=== PATIENT | male | born 1975 | race Caucasian/White ===

== ENCOUNTER 2024-09-18 13:09 | Emergency (ER) | payer OTHER, SELFPAY ==
[2024-09-18 13:25] VITALS: BP 95/69; PULSE 97; RESP 26; TEMP 36.3; O2SAT 97
--- NOTE | 2024-09-18 13:32 | XRR_ITS ---
PROCEDURE INFORMATION: Exam: XR Chest Exam date and time: 09/18/2024 2:01 PM Age: 49 years old Clinical indication: Shortness of breath TECHNIQUE: Imaging protocol: Radiologic exam of the chest. Views: 1 view. COMPARISON: No relevant prior studies available. FINDINGS: Lungs: Patchy alveolar airspace disease in the right and left lower lobes. Findings are suspicious for pneumonia. Calcified granuloma in the left mid lung. Pleural spaces: No pleural effusion. No pneumothorax. Heart/Mediastinum: Cardiac silhouette is markedly enlarged. Mediastinal contours are unremarkable. Calcified lymph nodes in the right hilum. Vasculature: Vascular calcifications in the aorta. Bones/joints: Unremarkable for age. XR/XR chest 1V portable [id number] IMPRESSION: 1. Patchy alveolar airspace disease in the right and left lower lobes. Findings are suspicious for pneumonia. Recommend followup chest imaging to insure resolution of these findings. 2. Incidental/nonacute findings are listed in the report.
[2024-09-18 14:18] LABS: Influenza A NEGATIVE (Negative); Influenza B NEGATIVE (Negative); Respiratory Syncytial Virus Ce NEGATIVE (Negative); SARS-CoV-2 PCR NEGATIVE (Negative)
[2024-09-18 15:02] LABS: Basophils # 0.1 10^3/uL (0.0-0.1); Basophils % 0.7 %; Eosinophils # 0.2 10^3/uL (0.0-0.8); Eosinophils % 2.4 %; Hematocrit 44.3 % (37-53); Lymphocytes # 2.7 10^3/uL (0.8-4.8); Lymphocytes % 27.8 %; Mean Corpuscular HGB Conc 32.7 g/dL (30-55); Mean Corpuscular Hemoglobin 29.5 pg (27-33); Mean Corpuscular Volume 90.2 fl (82-101); Mean Platelet Volume 10.5 fL (7.4-10.4); Monocytes # 0.9 10^3/uL (0.2-0.9); Monocytes % 8.9 %; Neutrophils # 5.74 10^3/uL (1.8-7.7); Neutrophils % 59.7 %; Nucleated Red Blood Cells % 0 %; Platelet Count 435 10^3/cmm (157-399); Red Blood Count 4.91 10^6/uL (3.85-5.65); Red Cell Distribution Width 13.4 % (12.1-15.1); White Blood Count 9.62 10^3/uL (3.29-11.43)
--- NOTE | 2024-09-18 15:09 | ECG_ITS ---
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1975 Requested By: Harley Felipe Order Number: [id number] Julian MD: PIPO CLARK Measurements Intervals [place] Rate: 99 P: 0 AL: 0 QRS: -64 QRSD: 106 T: 129 QT: 375 QTc: 483 Interpretive Statements SINUS ARRHYTHMIA RHYTHM PATTERN CONSISTENT WITH PULMONARY DISEASE INCOMPLETE RIGHT BUNDLE BRANCH BLOCK [90+ ms QRS DURATION, TERMINAL R IN V1/V2, 40+ ms S IN I/aVL/V4/V5/V6] LEFT ANTERIOR FASCICULAR BLOCK [QRS AXIS <= -45, QR IN I, RS IN II] MODERATE VOLTAGE CRITERIA FOR LVH, CONSIDER NORMAL VARIANT [MEETS CRITERIA IN ONE OF: R(aVL), S(V1), R(V5), R(V5/V6)+S(V1)] POSSIBLE SEPTAL MYOCARDIAL INFARCTION , PROBABLY OLD [30 ms Q WAVE IN V1/V2] No previous ECG available for comparison Electronically Signed On 09-20-2024 19:30:30 PARTS SALES MANAGER by PIPO CLARK [id number]
[2024-09-18 15:24] LABS: Alanine Aminotransferase 46 U/L (0-41); Albumin Level 3.6 g/dL (3.5-5.2); Alkaline Phosphatase 79 U/L (40-130); Anion Gap 21.1 (5-19); Aspartate Amino Transferase 38 U/L (0-40); Blood Urea Nitrogen 23 mg/dL (6-20); Calcium 9.3 mg/dL (8.5-10.5); Carbon Dioxide 20 mmol/L (22-29); Chloride 98 mmol/L (98-107); Globulin 3.4 g/dL (1.3-4.6); Glomerular Filtration Rate 53.6 mL/min (90-130); Glucose 139 mg/dL (65-115); Osmolality Calculated 286 mOsm/kg (285-295); Potassium 4.1 mmol/L (3.5-5.1); Sodium 135 mmol/L (136-145); Total Bilirubin 0.6 mg/dL (0.15-1.2)
--- NOTE | 2024-09-18 16:28 | ED_ITS ---
HPI - SOB/Dyspnea 2 General: Chief Complaint: Shortness of Breath/Dyspnea Stated Complaint: SOB Time Seen by Provider: 09/18/24 16:24 History of Present Illness: HPI Narrative: Patient presents to the ER with complaints of shortness of breath over the past 2 weeks. He says gotten really bad over the last 2 days. Patient denies any chest pain fever chills. Patient says he normally is not short of breath does not use oxygen does not have a history of COPD. Upon arrival to the ER patient was sleeping soundly lying flat on his back without oxygen and his O2 sat was 97% on room air Related Data Previous Rx's ?Medication ?Instructions ?Recorded albuterol sulfate 90 mcg/actuation 2 inh inhalation Q6 H PRN shortness 09/18/24 aerosol inhaler (Ventolin HFA) of breath or wheezing # 6.7 grams cefdinir 300 mg capsule 300 mg PO BID 10 days #20 ca ps 09/18/24 Allergies Allergy/AdvReac Type Severity Reaction Status Date / Time No Known Allergies Allergy Verified 09/18/24 13:28 Review of Systems 2 General: Reports: 10 or more systems reviewed and unremarkable except in HPI and below Physical Exam 2 Const: COMMON NORMALS: no acute distress, average body habitus, patient oriented x3, no limitations, healthy appearing, alert and well nourished HENMT: COMMON NORMALS: normocephalic, atraumatic, hearing grossly normal bilaterally, external ears normal, Normal external nose present, moist oral mucous membranes and oropharynx normal HEAD & SCALP: normocephalic and atraumatic NOSE: Normal external nose present EXTERNAL EAR: Yes external ears normal Neck/C-Spine: COMMON NORMALS: no JVD Chest: COMMONS NORMALS: normal inspection of the chest and normal palpation of entire chest wall Resp: COMMON NORMALS: normal respiratory effort, No retractions, No use of accessory muscles and clear to auscultation bilaterally AUSCULTATION: clear to auscultation bilaterally Cardio: COMMON NORMALS: no JVD, regular rate, regular rhythm, S1 normal heart sound present, S2 normal heart sound present, No gallops present (Cardio), No clicks present (Cardio), No murmurs present (Cardio) and No rub (Cardio) R ATE: regular rate RHYTHM: regular rhythm HEART SOUNDS: S1 normal heart sound present and S2 normal heart sound present GI: COMMON NORMALS: Normal to inspection, nondistended, normoactive bowel sounds present, Soft to palpation, non-tender, No hepatosplenomegaly present and no masses PALPATION: Yes Soft to palpation and Yes No hepatosplenomegaly present Neuro: COMMON NORMALS: patient oriented x3 SENSORIUM/ORIENTATION: Yes alert Course 2 Vital Signs: Vital signs: Vital Signs Temperature 97.4 F L 09/18/24 13:25 Pulse Rate 97 09/18/24 13:25 Respiratory Rate 26 H 09/18/24 13:25 Blood Pressure 95/69 09/18/24 13:25 Pulse Oximetry 97 09/18/24 13:25 Oxygen Delivery Me thod Room Air 09/18/24 13:25 MDM - SOB/Dyspnea Medical Decision Making Viral panel is negative, white count 9.6 hemoglobin 14.5 BUN/creatinine 23 and 1.4, chest x-ray showed patchy alveolar disease in the right and left lower lobes suspicious for pneumonia. Patient was given 1 DuoNeb treatment Omnicef 300 mg p.o. and will be DC'd home with albuterol inhaler and Omnicef prescriptions. Medical Records I reviewed the patient's medical records. Lab Data I reviewed the patient's lab results. 09/18/24 14:44 09/18/24 14:44 Labs/Radiology: Radiology Impressions Chest X-Ray 09/18/24 13:32 IMPRESSION: 1. Patchy alveolar airspace disease in the right and left lower lobes. Findings are suspicious for pneumonia. Recommend followup chest imaging to insure resolution of these findings. 2. Incidental/nonacute findings are listed in the report. Laboratory Results WBC 9.62 10^3/uL (3.29-11.43) 09/18/24 14:44 RBC 4.91 10^6/uL (3.85-5.65) 09/18/24 14:44 Hgb 14.50 g/dL (11.27-16.99) 09/18/24 14:44 Hct 44.3 % (37-53) 09/18/24 14:44 MCV 90.2 fl (82-101) 09/18/24 14:44 MCH 29.5 pg (27-33) 09/18/24 14:44 MCHC 32.7 g/dL (30-55) 09/18/24 14:44 RDW 13.4 % (12.1-15.1) 09/18/24 14:44 Plt Count 435 10^3/cmm (157-399) H 09/18/24 14:44 MPV 10.5 fL (7.4-10.4) H 09/18/24 14:44 Neut % (Auto) 59.7 % 09/18/24 14:44 Lymph % (Auto) 27.8 % 09/18/24 14:44 [place] % (Auto) 8.9 % 09/18/24 14:44 Eos % (Auto) 2.4 % 09/18/24 14:44 Baso % (Auto) 0.7 % 09/18/24 14:44 Neut # (Auto) 5.74 10^3/uL (1.8-7.7) 09/18/24 14:44 Lymph # (Auto) 2.7 10^3/uL (0.8-4.8) 09/18/24 14:44 [place] # (Auto) 0.9 10^3/uL (0.2-0.9) 09/18/24 14:44 Eos # (Auto) 0.2 10^3/uL (0.0-0.8) 09/18/24 14:44 Baso # (Auto) 0.1 10^3/uL (0.0-0.1) 09/18/24 14:44 Nucleated RBC % (auto) 0 % 09/18/24 14:44 Nucleated RBCs # 0.0 /100WBC 09/18/24 14:44 Sodium 135 mmol/L (136-145) L 09/18/24 14:44 Potassium 4.1 mmol/L (3.5-5.1) 09/18/24 14:44 Chloride 98 mmol/L (98-107) 09/18/24 14:44 Carbon Dioxide 20 mmol/L (22-29) L 09/18/24 14:44 Anion Gap 21.1 (5-19) H 09/18/24 14:44 BUN 23 mg/dL (6-20) H 09/18/24 14:44 Creatinine 1.4 mg/dL (0.7-1.2) H 09/18/24 14:44 GFR Calculation 53.6 mL/min (90-130) L 09/18/24 14:44 Glucose 139 mg/dL (65-115) H 09/18/24 14:44 Calculated Osmolality 286 mOsm/kg (285-295) 09/18/24 14:44 Calcium 9.3 mg/dL (8.5-10.5) 09/18/24 14:44 Total Bilirubin 0.6 mg/dL (0.15-1.2) 09/18/24 14:44 AST 38 U/L (0-40) 09/18/24 14:44 ALT 46 U/L (0-41) H 09/18/24 14:44 Alkaline Phosphatase 79 U/L (40-130) 09/18/24 14:44 Total Protein 7.0 g/dL (6.6-8.7) 09/18/24 14:44 Albumin 3.6 g/dL (3.5-5.2) 09/18/24 14:44 Globulin 3.4 g/dL (1.3-4.6) 09/18/24 14:44 Coronavirus (PCR) Negative (Negative) 09/18/24 13:32 Influenza A (PCR) Negative (Negative) 09/18/24 13:32 Influenza Type B (PCR) Negative (Negative) 09/18/24 13:32 RSV (PCR) Negative (Negative) 09/18/24 13:32 All radiology interpretation(s) finalized by discharge Discharge Plan Discharge Patient Disposition: Home Clinical Impression: Community acquired pneumonia Qualifiers: Laterality: unspecified laterality Qualified Code(s): J18.9 - Pneumonia, unspecified organism Condition: Stable Prescriptions: New albuterol sulfate [Ventolin HFA] 90 mcg/actuation HFA aerosol inhaler 2 inh inhalation Q6H PRN (Reason: shortness of breath or wheezing) Qty: 6.7 0RF cefdinir 300 mg capsule 300 mg PO BID 10 Days Qty: 20 0RF Discharge Orders: Discharge ED (Routine); Ordered 09/18/24 Ordered By: Harley Felipe Patient Instructions: Pneumonia (ED) Activity Restrictions/Additional Instructions: Your evaluation ER shows you have pneumonia. You have been prescribed an antibiotic and an inhaler. These have been sent to your pharmacy. Please pick them up and take them as directed. Please follow-up with your family practitioner within next 7 days for further evaluation and treatment. Print Language: Romansh Coding Level of Care Code ED Automobile Accessories Salesperson for Rony Maldonado
[2024-09-18 16:30] VITALS: BP 115/72; PULSE 87; O2SAT 97
[2024-09-18 16:34] VITALS: PULSE 87; RESP 18; O2SAT 94
[2024-09-18] MEDS: cefdinir 300 MG CAPSULE PO (16:36)
[2024-09-18] MEDS: ipratropium-albuterol 3 mL Neb INHALATION (16:38)
[2024-09-18 16:39] VITALS: PULSE 89
[2024-09-18 17:14] VITALS: BP 123/72; PULSE 82; O2SAT 93
== END 2024-09-18 17:15 | disposition home or self-care (01) ==
PROVIDERS: Emergency Provider Emergency Medicine
DX: J18.9 Pneumonia, unspecified organism (principal); Z11.52 Encounter for screening for COVID-19
CPT/HCPCS: 36415; 71045; 80053; 85025; 87637; 93005; 94640; 99285

== ENCOUNTER 2024-09-22 05:35 | Emergency (ER) | payer OTHER, SELFPAY ==
[2024-09-22] VITALS (7 sets, daily range): BP systolic 135–153; BP diastolic 80–116; PULSE 91–102; RESP 16–29; TEMP 36.7; O2SAT 90–98; BMI 32.5
--- NOTE | 2024-09-22 06:00 | XRR_ITS ---
PROCEDURE INFORMATION: Exam: XR Chest Exam date and time: 09/22/2024 6:01 AM Age: 49 years old Clinical indication: Cough and shortness of breath; C/O cough with SOB. TECHNIQUE: Imaging protocol: Radiologic exam of the chest. Views: 1 view. COMPARISON: CR XR chest 1V portable [id number] 09/18/2024 2:01 PM FINDINGS: Lungs: Interval increase in patchy opacities of the right lower, middle and inferior upper lobe. Dense retrocardiac opacity. Pleural spaces: Unremarkable. No pleural effusion. No pneumothorax. Heart/Mediastinum: Cardiomegaly. Calcified hilar lymph nodes. Vasculature: Tortuous calcified aorta. Bones/joints: Degenerative change of the spine and shoulders. XR/XR chest 1V portable [id number] IMPRESSION: Interval increase in opacities of the right lung field and similar retrocardiac opacity suggestive of multifocal pneumonia.
--- NOTE | 2024-09-22 06:17 | ECG_ITS ---
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 Measurements Intervals [place] Rate: 90 P: 55 [place]: 192 QRS: -53 QRSD: 112 T: 125 QT: 389 QTc: 477 Interpretive Statements SINUS RHYTHM.LEFT ATRIAL ENLARGEMENT [-0.15mV P-WAVE IN V1/V2] INCOMPLETE RIGHT BUNDLE BRANCH BLOCK [90+ ms QRS DURATION, TERMINAL R IN V1/V2, 40+ ms S IN I/aVL/V4/V5/V6] LEFT ANTERIOR FASCICULAR BLOCK [QRS AXIS <= -45, QR IN I, RS IN II] POSSIBLE LEFT VENTRICULAR HYPERTROPHY [VOLTAGE CRITERIA PLUS LAE OR QRS WIDENING] POSSIBLE SEPTAL MYOCARDIAL INFARCTION , OF INDETERMINATE AGE [30 ms Q WAVE IN V1/V2]. MODERATE T-WAVE ABNORMALITY, CONSIDER LATERAL ISCHEMIA [-0.1+ mV T-WAVE IN I/aVL/V5/V6]. Compared to ECG 09/18/2024 13:32:59 Atrial abnormality now present.T-wave abnormality now present.Possible ischemia now present.Sinus arrhythmia no longer present.Myocardial infarct finding still present Electronically Signed On 09-22-2024 11:24:35 ARCHITECT NAVAL by Naomy Elizalde M.D. [email or web address] [id number]
--- NOTE | 2024-09-22 06:29 | W.ED.SOB ---
HPI - SOB/Dyspnea General: Chief Complaint: Shortness of Breath/Dyspnea Stated Complaint: SOB\Water filling lungs Time Seen by Provider: 09/22/24 05:59 History of Present Illness: HPI Narrative: 49-year-old male presents to the emergency room complaining of what he describes as fluid in his lungs difficulty breathing. Patient with 3 to 4 days ago and started on cefdinir as well as albuterol. At that time chest x-ray done in the emergency room here showed what looks like a right lower lobe pneumonia. He states he has gotten worse since then. He has a nonproductive cough he has a mask and appears to be like a industrial dust mask with a oxygen to projecting from the bottom he states he gets oxygen and he feels better when he uses oxygen reports he has been getting at 2 L/min. Tried him on room air he maintained his sats at around 95%. No history of chronic respiratory disease PE or coronary artery disease. He does have a prescription for verapamil at at bedtime that he takes for hypertension. [facility] No history of arrhythmia or coronary artery disease. Patient has stopped taking the antibiotics he was prescribed previously. He denies any chest pain at this time. Associated symptoms: Reports chest congestion; Deny abdominal pain, chest pain or fever(s) Related Data Home Medications ?Medication ?Instructions ?Recorded ?Confirmed verapamil 240 mg tablet,extended 240 mg PO BEDTIME 09/18/24 09/22/24 release Previous Rx's ?Medication ?Instructions ?Recorded albuterol sulfate 90 mcg/actuation 2 inh inhalation Q6H PRN shortness 09/18/24 aerosol inhaler (Ventolin HFA) of breath or wheezing #6.7 grams cefdinir 300 mg capsule 300 mg PO BID 10 days #20 caps 09/18/24 azithromycin 250 mg tablet See Rx Instructions PO .COMPLEX #6 09/22/24 (Zithromax Z-Julien) tabs furosemide 20 mg tablet (Lasix) 20 mg PO DAILY #7 tabs 09/22/24 Allergies Allergy/AdvReac Type Severity Reaction Status Date / Time No Known Allergies Allergy Verified 09/22/24 05:44 Review of Systems Const: Denies: fever(s) or chills Card: Reports: dyspnea on exertion; Denies: chest pain Resp: Reports: dyspnea and chest congestion GI: Denies: abdominal pain : Denies: dysuria, urinary frequency or urinary urgency Musc: Denies: neck pain or back pain Skin/Breast: Denies: rash PFSH ED PFSH: Medical History HTN (hypertension) Cluster headache Social History (Updated 09/22/24 @ 10:54 by Frandy Armstrong MD) Smoking and tobacco/nicotine status: current every day tobacco/nicotine user e-cigarettes Alcohol intake: never Substance/Drug Use: current Substance/Drug use frequency: Special occassions/opportunity only Physical Exam Const: GENERAL APPEARANCE: cooperative ORIENTATION/CONSCIOUSNESS: Yes awake, Yes oriented to person, Yes oriented to place and Yes oriented to time HENMT: COMMON NORMALS: normocephalic, atraumatic and hearing grossly normal bilaterally HEAD & SCALP: normocephalic and atraumatic Resp: COMMON NORMALS: normal respiratory effort, No retractions and No use of accessory muscles AUSCULTATION: crackles Laterality: right Cardio: COMMON NORMALS: regular rate, regular rhythm and No murmurs present (Cardio) RATE: regular rate RHYTHM: regular rhythm GI: COMMON NORMALS: Soft to palpation and No hepatosplenomegaly present AUSCULTATION: Yes normoactive bowel sounds PALPATION: Yes Soft to palpation, No Tenderness to palpation present (GI), No Guarding due to palpation present (GI) and Yes No hepatosplenomegaly present Extremity: COMMON NORMALS: normal to inspection, capillary refill normal, no clubbing, cyanosis or edema, no calf tenderness and no pedal edema Neuro: SENSORIUM/ORIENTATION: Yes oriented to person, Yes oriented to place and Yes oriented to time Skin: COMMON NORMALS: no rashes or lesions noted GENERAL SKIN EXAM: no rashes or lesions noted Course Vital Signs: Vital signs: Vital Signs Temperature 98.0 F 09/22/24 05:41 Pulse Rate 102 H 09/22/24 10:00 Respiratory Rate 29 H 09/22/24 06:18 Blood Pressure 153/116 09/22/24 10:00 Pulse Oximetry 90 09/22/24 10:00 Oxygen Delivery Me thod Room Air 09/22/24 10:00 Oxygen Flow Rate 2 09/22/24 07:49 MDM - SOB/Dyspnea Medical Decision Making Previous ER visit reviewed. Patient had apparent pneumonia on chest x-ray. It is more prominent today. He has nonspecific EKG changes mostly look old nothing that shows acute ST elevation he is not having any chest pain at this time did not have any chest pain earlier at his previous visit. Patient has acute congestive heart failure CT did not show PE his troponin is elevated at baseline shows a positive delta he also has elevated BNP and findings suggestive of imaging of congestive heart failure his white count and procalcitonin are normal flu and COVID and RSV are negative. Advised patient for admission he refuses. He has not been taking the cefdinir. Patient ultimately left AMA. Dr. Li ski Dr. Carbajal myself as well as nursing staff all encouraged him to stay impressed upon him the seriousness of these findings and the potential for worsening including the potential for sudden cardiac . He states he will go home and get his cell phone and may return. We offered several other alternatives so that he would not have to leave he still decided to leave. Will call in [employer] form also advised him he has a 1.37 cm left lower lobe pulmonary nodule on his CT that should be followed up within the next 6 months. Finally also have him take Lasix 20 mg daily for 7 days Patient had already left charge nurse contacted the patient to advise him of our recommendations if he does not return preferably he should return and be admitted Medical Records I reviewed the patient's medical records. Lab Data I reviewed the patient's lab results. 09/22/24 06:45 09/22/24 06:45 Labs/Radiology: Radiology Impressions Chest X-Ray 09/22/24 06:00 IMPRESSION: Interval increase in opacities of the right lung field and similar retrocardiac opacity suggestive of multifocal pneumonia. Chest CTA 09/22/24 08:14 IMPRESSION: 1. No acute PE. 2. Posterior bilateral pleural effusions most marked on the RIGHT. Diffuse interstitial and airspace infiltrates noted bilaterally. This could represent pneumonia or pulmonary edema secondary to congestive heart failure. 3. Cardiomegaly. 4. 1.37 cm indeterminate soft tissue nodule in the LEFT lower lobe. 6-month follow-up contrast CT scan of the chest recommended for surveillance. Laboratory Results WBC 11.41 10^3/uL (3.29-11.43) 09/22/24 06:45 RBC 4.50 10^6/uL (3.85-5.65) 09/22/24 06:45 Hgb 13.60 g/dL (11.27-16.99) 09/22/24 06:45 Hct 40.7 % (37-53) 09/22/24 06:45 MCV 90.4 fl (82-101) 09/22/24 06:45 MCH 30.2 pg (27-33) 09/22/24 06:45 MCHC 33.4 g/dL (30-55) 09/22/24 06:45 RDW 13.4 % (12.1-15.1) 09/22/24 06:45 Plt Count 357 10^3/cmm (157-399) 09/22/24 06:45 MPV 10.1 fL (7.4-10.4) 09/22/24 06:45 Neut % (Auto) 72.6 % 09/22/24 06:45 Lymph % (Auto) 17.7 % 09/22/24 06:45 [place] % (Auto) 7.6 % 09/22/24 06:45 Eos % (Auto) 1.3 % 09/22/24 06:45 Baso % (Auto) 0.5 % 09/22/24 06:45 Neut # (Auto) 8.28 10^3/uL (1.8-7.7) H 09/22/24 06:45 Lymph # (Auto) 2.0 10^3/uL (0.8-4.8) 09/22/24 06:45 [place] # (Auto) 0.9 10^3/uL (0.2-0.9) 09/22/24 06:45 Eos # (Auto) 0.2 10^3/uL (0.0-0.8) 09/22/24 06:45 Baso # (Auto) 0.1 10^3/uL (0.0-0.1) 09/22/24 06:45 Nucleated RBC % (auto) 0 % 09/22/24 06:45 Nucleated RBCs # 0.0 /100WBC 09/22/24 06:45 D-Dimer 2.18 ug/mLFEU (0-0.59) H 09/22/24 06:45 Sodium 136 mmol/L (136-145) 09/22/24 06:45 Potassium 4.7 mmol/L (3.5-5.1) 09/22/24 06:45 Chloride 99 mmol/L (98-107) 09/22/24 06:45 Carbon Dioxide 23 mmol/L (22-29) 09/22/24 06:45 Anion Gap 18.7 (5-19) 09/22/24 06:45 BUN 18 mg/dL (6-20) 09/22/24 06:45 Creatinine 1.3 mg/dL (0.7-1.2) H 09/22/24 06:45 GFR Calculation 58.4 mL/min (90-130) L 09/22/24 06:45 Glucose 141 mg/dL (65-115) H 09/22/24 06:45 Calculated Osmolality 286 mOsm/kg (285-295) 09/22/24 06:45 Calcium 9.1 mg/dL (8.5-10.5) 09/22/24 06:45 Total Bilirubin 0.9 mg/dL (0.15-1.2) 09/22/24 06:45 AST 34 U/L (0-40) 09/22/24 06:45 ALT 43 U/L (0-41) H 09/22/24 06:45 Alkaline Phosphatase 79 U/L (40-130) 09/22/24 06:45 Troponin T Baseline 183 ng/L (0-15) H* 09/22/24 06:45 Troponin T 120 Minute 201.5 ng/L (0-15) H 09/22/24 09:12 Delta Troponin T 18.5 ABS# (0-10) H* 09/22/24 09:12 C-Reactive Protein 4.5 mg/L (0.0-4.9) 09/22/24 06:45 NT-Pro-B Natriuret Pep 2827 pg/mL (0-125) H 09/22/24 06:45 Total Protein 6.5 g/dL (6.6-8.7) L 09/22/24 06:45 Albumin 3.6 g/dL (3.5-5.2) 09/22/24 06:45 Globulin 2.9 g/dL (1.3-4.6) 09/22/24 06:45 Procalcitonin 0.09 ng/mL (0-0.5) 09/22/24 06:45 Coronavirus (PCR) Negative (Negative) 09/22/24 06:35 Influenza A (PCR) Negative (Negative) 09/22/24 06:35 Influenza Type B (PCR) Negative (Negative) 09/22/24 06:35 RSV (PCR) Negative (Negative) 09/22/24 06:35 All radiology interpretation(s) finalized by discharge Discharge Plan Discharge Patient Disposition: Left Against Medical Advice Clinical Impression: Non-ST elevation MD (NSTEMI), HTN (hypertension), CHF (congestive heart failure), Pulmonary nodule 1 cm or greater in diameter Condition: Stable Prescriptions: New furosemide [Lasix] 20 mg tablet 20 mg PO DAILY Qty: 7 0RF azithromycin [Zithromax Z-Julien] 250 mg tablet See Rx Instructions .ROUTE .COMPLEX Qty: 6 0RF Rx Instructions: For 250 mg dose pack: take 500 mg today (day 1), then 250 mg for 4 days (days 2-5) No Action albuterol sulfate [Ventolin HFA] 90 mcg/actuation HFA aerosol inhaler 2 inh inhalation Q6H PRN (Reason: shortness of breath or wheezing) Qty: 6.7 0RF cefdinir 300 mg capsule 300 mg PO BID 10 Days Qty: 20 0RF verapamil 240 mg Tablet Extended Release 240 mg PO BEDTIME Print Language: Romanian Coding Level of Care Code ED Assistant Account Manager for Rony Maldonado
--- NOTE | 2024-09-22 06:52 | ECG_ITS ---
[employer] Test Date: 2024-09-22 Pat Name: Andry Del Cid Department: Room: Gender: Male Virtualization Architect: : 1975 Requested By: Sravan Franco Order Number: [id number] Julian MD: Naomy Elizalde M.D. Measurements Intervals [place] Rate: 91 P: -31 NM: 321 QRS: -55 QRSD: 114 T: 132 QT: 384 QTc: 474 Interpretive Statements ELECTRONIC ATRIAL PACEMAKER INCOMPLETE RIGHT BUNDLE BRANCH BLOCK [90+ ms QRS DURATION, TERMINAL R IN V1/V2, 40+ ms S IN I/aVL/V4/V5/V6] LEFT ANTERIOR FASCICULAR BLOCK [QRS AXIS <= -45, QR IN I, RS IN II] LEFT VENTRICULAR HYPERTROPHY AND ST-T CHANGE [VOLTAGE CRITERIA PLUS ST/T ABNORMALITY] Compared to ECG 09/18/2024 13:32:59 ST (T wave) deviation now present Sinus arrhythmia no longer present Myocardial infarct finding no longer present Electronically Signed On 09-22-2024 11:25:08 CHANNELING MACHINE OPERATOR by Naomy Elizalde M.D. [id number] [id number]
[2024-09-22 07:04] LABS: Basophils # 0.1 10^3/uL (0.0-0.1); Basophils % 0.5 %; Eosinophils # 0.2 10^3/uL (0.0-0.8); Eosinophils % 1.3 %; Hematocrit 40.7 % (37-53); Lymphocytes % 17.7 %; Mean Corpuscular HGB Conc 33.4 g/dL (30-55); Mean Corpuscular Hemoglobin 30.2 pg (27-33); Mean Corpuscular Volume 90.4 fl (82-101); Mean Platelet Volume 10.1 fL (7.4-10.4); Monocytes # 0.9 10^3/uL (0.2-0.9); Monocytes % 7.6 %; Neutrophils # 8.28 10^3/uL (1.8-7.7); Neutrophils % 72.6 %; Nucleated Red Blood Cells % 0 %; Platelet Count 357 10^3/cmm (157-399); Red Cell Distribution Width 13.4 % (12.1-15.1); White Blood Count 11.41 10^3/uL (3.29-11.43)
[2024-09-22 07:17] LABS: Influenza A NEGATIVE (Negative); Influenza B NEGATIVE (Negative); Respiratory Syncytial Virus Ce NEGATIVE (Negative); SARS-CoV-2 PCR NEGATIVE (Negative)
[2024-09-22 07:24] LABS: Troponin(5th) Baseline 183 ng/L (0-15)
[2024-09-22 07:28] LABS: NT Pro B Type Natriuretic Pept 2827 pg/mL (0-125); Procalcitonin 0.09 ng/mL (0-0.5)
[2024-09-22 07:39] LABS: Alanine Aminotransferase 43 U/L (0-41); Albumin Level 3.6 g/dL (3.5-5.2); Alkaline Phosphatase 79 U/L (40-130); Blood Urea Nitrogen 18 mg/dL (6-20); Calcium 9.1 mg/dL (8.5-10.5); Carbon Dioxide 23 mmol/L (22-29); Chloride 99 mmol/L (98-107); Creatinine Clr Calc Pharmacy 79.1692; Globulin 2.9 g/dL (1.3-4.6); Glomerular Filtration Rate 58.4 mL/min (90-130); Glucose 141 mg/dL (65-115); Osmolality Calculated 286 mOsm/kg (285-295); Sodium 136 mmol/L (136-145); Total Bilirubin 0.9 mg/dL (0.15-1.2); Total Protein 6.5 g/dL (6.6-8.7)
[2024-09-22 07:44] LABS: Anion Gap 18.7 (5-19); Aspartate Amino Transferase 34 U/L (0-40); Potassium 4.7 mmol/L (3.5-5.1)
--- NOTE | 2024-09-22 07:50 | PC.NURSE ---
Pt oxygen saturation 95% on room air. This nurse went in to room to round, pt requested this nurse to turn oxygen up. This nurse educated pt on his oxygen saturations being within normal limits. Pt still requested to have oxygen on and stated I've got a bottle in the truck. This nurse placed pt on 2L of oxygen via nasal cannula.
[2024-09-22 07:52] LABS: D Dimer 2.18 ug/mLFEU (0-0.59)
--- NOTE | 2024-09-22 08:14 | CT_ITS ---
WS: [id number] Exam: CT angio chest PE protcl [id number] Date/Time of Exam: 09/22/2024 8:21 AM Reason For Exam: Shortness of breath, elevated D-dimer DLP: 512.[address] scans at [facility] use at least one of these dose optimization techniques: automated exposure control; mA and/or kV adjustment per patient size (includes targeted exams where dose is matched to clinical indication); or iterative reconstruction. No sign of acute PE. Bibasal pleural effusions are noted most marked on the RIGHT. There are patchy interstitial and airspace infiltrates in the RIGHT lung as well as the LEFT lower lung zone. There is a 13.7 cm soft tissue indeterminate nodule in the LEFT lower lobe. The heart is enlarged. The thoracic aorta is normal in caliber. The central pulmonary arteries are clear. The trachea and major bronchi are clear. No mass or adenopathy in the visualized neck. No destructive bone lesions are seen. CT/CT angio chest PE protcl [id number] IMPRESSION: 1. No acute PE. 2. Posterior bilateral pleural effusions most marked on the RIGHT. Diffuse inte rstitial and airspace infiltrates noted bilaterally. This could represent pneum onia or pulmonary edema secondary to congestive heart failure. 3. Cardiomegaly. 4. 1.37 cm indeterminate soft tissue nodule in the LEFT lower lobe. 6-month fol low-up contrast CT scan of the chest recommended for surveillance.
[2024-09-22] MEDS: iohexol 350 mg/mL 500 mL Btl (per mL) IV (08:38)
--- NOTE | 2024-09-22 08:55 | ECG_ITS ---
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 Measurements Intervals Hunt Rate: 96 P: 60 OR: 203 QRS: -57 QRSD: 102 T: 91 QT: 372 QTc: 471 Interpretive Statements SINUS RHYTHM LEFT ATRIAL ENLARGEMENT [-0.15mV P-WAVE IN V1/V2] INCOMPLETE RIGHT BUNDLE BRANCH BLOCK [90+ ms QRS DURATION, TERMINAL R IN V1/V2, 40+ ms S IN I/aVL/V4/V5/V6] LEFT ANTERIOR FASCICULAR BLOCK [QRS AXIS <= -45, QR IN I, RS IN II] SEPTAL MYOCARDIAL INFARCTION , OF INDETERMINATE AGE [40+ ms Q WAVE IN V1/V2] Compared to ECG 09/22/2024 06:46:23 T-wave abnormality no longer present Possible ischemia no longer present Myocardial infarct finding still present Electronically Signed On 09-22-2024 11:26:57 [employer] by Naomy Elizalde M.D. [email or web address]
[2024-09-22 09:45] LABS: Troponin 5 2HR 201.5 ng/L (0-15); Troponin 5 2HR Delta 18.5 ABS# (0-10)
--- NOTE | 2024-09-22 10:01 | PC.NURSE ---
THIS NURSE AND DR. NELSON WENT TO SPEAK WITH PT ABOUT POSSIBLE ADMISSION. PT STATES I NEED TO GO HOME AND GET MY PHONE. THERE ARE PEOPLE I NEED TO NOTIFY. DR. NELSON EDUCATED PT ON THE NEED TO STAY AND TO BE TREATED. PT CONTINUED TO WANT TO LEAVE AND STATED NOBODY KNOWS I AM HERE. I NEED TO GO HOME AND GET MY PHONE. I'LL BE BACK IN 45 MINUTES. PT WAS EDUCATED BY THIS NURSE THAT IF HE LEFT, HE WOULD HAVE TO SIGN OUT AMA AND THEN WHEN HE CAME BACK IT WOULD BE A COMPLETELY DIFFERENT ER VISIT. PT UPSET AND STATES WHY IS THAT? I NEED TO GO AND GET MY PHONE. THIS NURSE ASKED PT IF THERE WERE ANY NAMES OF PEOPLE THAT COULD BE CALLED TO GET HIS PHONE TO HIM. PT STATED I DON'T HAVE ANY NUMBERS. THEY ARE ALL IN MY PHONE. THIS NURSE ASKED ABOUT ANY NAMES. PT STATED I DON'T KNOW ANY LAST NAMES. I JUST KNOW FIRST NAMES. DR. NELSON EDUCATED PT AGAIN ON THE NEED TO STAY AND BE TREATED. PT STILL CONTINUED TO WANT TO LEAVE. THIS NURSE ASKED PT IF HE WOULD LET THIS NURSE LOOK IN PT CHART TO SEE IF THERE ARE ANY NUMBERS IN THE CHART THAT COULD BE CALLED. PT VERBALIZED THAT THIS NURSE COULD CHECK. THIS NURSE CHECKED PT CHART. NO VALID NUMBERS LISTED IN THE CHART. NEW ORDERS FROM DR. NELSON FOR A URINE DRUG SCREEN. THIS NURSE ASKED PT IF HE COULD URINATE FOR A SAMPLE. PT VERBALIZED HE WOULD TRY. THIS NURSE UNHOOKED PT TO GET UP TO USE THE RESTROOM. PT DID NOT ATTEMPT TO GET UP. THIS NURSE ASKED PT IF HE WAS READY TO TRY TO GIVE A SAMPLE. PT BECAME AGITATED AND UPSET AND STATED I TOLD YOU I JUST WENT. YOU ARE GOING TO HAVE TO WAIT. THIS NURSE VERBALLY DEESCALATED PT. PT WAS HOOKED BACK UP TO VITAL SIGN MONITOR AND WAS GIVEN CALL LIGHT TO NOTIFY THIS NURSE WHEN HE WAS ABLE TO URINATE FOR SAMPLE. DR NELSON NOTIFIED AND VERBAL ORDERS TO NOT AGITATE PT BY ASKING FOR SAMPLE.
[2024-09-22 10:25] LABS: C Reactive Protein 4.5 mg/L (0.0-4.9)
--- NOTE | 2024-09-22 10:51 | P.CONIM_ITS ---
Providers/Reason For Consult 2 Consulting Physician/Specialty*: Hospitalist Reason for Consult*: Came to see patient for admission, although he is considering that he may not stay and might discharge from ER before returning. He is going to let the ER providers know his final decision. History of Present Illness History of Present Illness 49-year-old gentleman with history of hypertension, reports blood pressure has always been high , previously on metoprolol did not tolerate medication well, has been switched over to verapamil. With history of smoking, but had quit and then started vaping but states recently has not been able to vape either. Has been getting progressively more dyspneic, dyspnea comes and goes, exertion seems to make it worse. About a month ago was able to walk further distance although would get intermittently exerted, currently will get quite dyspneic walking from the parking lot. States was having some panting after getting into the ER waiting room. Some dry cough. Denies chest pain or pressure. Denies any aspiration with food or drink. No vomiting recently, no diarrhea, some constipation. Denies recreational substance use beyond occasional marijuana. Denies alcohol consumption. In the ER with finding of some intermittent tachypnea, ranging 16-29, troponin with abnormality at baseline 183, at 2 hours 201. NT proBNP with abnormality of 2827. Mild-moderate creatinine 1.3. D- dimer with abnormal reading of 2.18. He denies any lower extremity edema. CRP not elevated. Procalcitonin not elevated. Mild tachycardia 90s-low 100 when he was getting upset in the ER, feels he has not improved since last visit to ER. Chest x-ray obtained during this assessment with interval increase in opacities in right lung field similar retrocardiac opacity suggestive of multifocal pneumonia. CT angiogram of the chest was obtained which showed no acute PE, posterior bilateral pleural effusions most marked on the right, diffuse interstitial airspace infiltrates noted bilaterally, could represent pneumonia or pulmonary edema secondary to congestive heart failure. Cardiomegaly. 1.37 cm indeterminate soft tissue nodule in the left lower lobe. 6-month follow-up contrast CT scan of the chest recommended for surveillance. Review of Systems 2 Const: Reports: fatigue; Denies: fever(s), chills, body aches or malaise ENMT: Denies: throat pain Card: Reports: dyspnea on exertion; Denies: chest pain or swelling of feet/ankles Resp: Reports: dyspnea; Denies: productive cough, change in phlegm color or hemoptysis GI: Reports: constipation; Denies: abdominal pain, nausea, vomiting, diarrhea, hematochezia or melena : Denies: flank pain, difficulty urinating, urinary frequency or hematuria Musc: Denies: back pain, joint swelling or joint redness Skin/Breast: Denies: rash or new lesions Neuro: Denies: headache(s) or confusion Medications/Allergies Home Medications ?Medication ?Instructions ?Recorded ?Confirmed ?Last Taken ?Type albuterol sulfate 90 mcg/actuation 2 inh inhalation Q6 H PRN shortness 09/18/24 09/22/24 Unknown Rx aerosol inhaler (Ventolin HFA) of breath or wheezing # 6.7 grams cefdinir 300 mg capsule 300 mg PO BID 10 days #20 ca ps 09/18/24 09/22/24 Unknown Rx verapamil 240 mg tablet,extended 240 mg PO BEDTIME 09/22/24 Unknown History release Allergies Allergy/AdvReac Type Severity Reaction Status Date / Time No Known Allergies Allergy Verified 09/22/24 05:44 PFSH Acute 2 PFSH: Medical History HTN (hypertension) Cluster headache Social History (Updated 09/22/24 @ 10:54 by Frandy Armstrong MD) Smoking and tobacco/nicotine status: current every day tobacco/nicotine user e- cigarettes Alcohol intake: never Substance/Drug Use: current Substance/Drug use frequency: Special occassions/opportunity only Vitals/I&O/Wt Last Vital Signs Temp 98.0 F 09/22/24 05:41 Pulse 96 09/22/24 08:43 Resp 29 H 09/22/24 06:18 BP 135/93 09/22/24 08:43 Pulse Ox 93 09/22/24 09:13 O2 Del Method Room Air 09/22/24 09:13 O2 Flow Rate 2 09/22/24 07:49 09/21/24 09/22/24 09/22/24 22:59 06:59 14:59 Intake Total 0 / 0 Balance 0 / 0 Weight last 48 hrs Weight 99.79 kg Physical Exam 2 Narrative: Sitting up. Const: COMMON NORMALS: patient oriented x3 and alert GENERAL APPEARANCE: c ooperative ORIENTATION/CONSCIOUSNESS: Yes awake HENMT: COMMON NORMALS: oropharynx normal Neck/C-Spine: COMMON NORMALS: no JVD Resp: COMMON NORMALS: normal respiratory effort and clear to auscultation bilaterally AUSCULTATION: clear to auscultation bilaterally Cardio: COMMON NORMALS: no JVD, regular rhythm, S1 normal heart sound present, S2 normal heart sound present and No murmurs present (Cardio) RHYTHM: regular rhythm HEART SOUNDS: S1 normal heart sound present and S2 normal heart sound present GI: COMMON NORMALS: Normal to inspection, nondistended, normoactive bowel sounds present, Soft to palpation and non-tender PALPATION: Yes Soft to palpation Extremity: COMMON NORMALS: no joint enlargement and no pedal edema Neuro: COMMON NORMALS: patient oriented x3 and moves all extremities S ENSORIUM/ORIENTATION: Yes alert Psych: MOOD & AFFECT: Yes irritable Skin: COMMON NORMALS: no rashes or lesions noted GENERAL SKIN EXAM: no rashes or lesions noted Data 09/22/24 06:45 09/22/24 06:45 A&P Assessment and plan (1) Dyspnea: Progressive dyspnea on exertion, worsening over the last month, recently getting significantly dyspneic walking to the parking lot, he had quit smoking, but states recently has not been able to vape either due to the shortness of breath. Reviewed vitals, CBC, D-dimer, CMP, COVID, influenza, RSV PCR, chest x-ray, CTA chest, EKG, ER provider note. He is very unhappy that his condition was not treated well enough from prior visit and has not resolved. I have discussed with him our findings and hospitalization for further assessment and management including cardiac and pulmonary that may require further follow up for additional assessment and pulmonary assessment after discharge as well. Had been recently assessed on 07/18 for possible pneumonia, at that time received a prescription for cefdinir. He denies any vomiting, any evidence of aspiration, any cough with food or drink. In ER he is afebrile, without leukocytosis, but with mild tachycardia. Oxygen saturation mid to low 90s on room air. His symptoms have not improved. Progressed infiltrate on CXR. Elevated troponin and NT proBNP. As per discussion with him he was noted to have reported patchy infiltrates on CTA, no PE, process so far not identified, possible congestive heart failure with noted also troponin elevation at least moderate level, possible concomitant AK. Discussed also possible lung damage from vaping, advised against vaping. Discussed possible unresolving or atypical pneumonia. As per discussion with him we would recommend for him to be hospitalized for additional assessment and management given possible AK, possible decompensated congestive heart failure, possible nonresolving or atypical pneumonia, and would benefit from further assessment subsequently with pulmonary function testing, possibly follow-up with pulmonology in case of a more chronic progressive lung disease. Understanding this, he states that he is needing to leave the ER and then come back to take care of something important. Discussed with him that he is not here involuntarily, however, discussed concern that he may be having a heart attack and discussed needs additional workup as well as attention from cardiology team who are seeing him as well. Additionally starting treatment for possible nonresolving or atypical pneumonia inpatient to see how he responds to treatment and exclude presence of other progressive condition to make sure he is not having rapid significant deterioration that may endanger his health. He still states he needs to go and care of something important to do with his phone, discussed this also with the ER provider who states they have additionally offered if case management or other ancillary service can assist him with his need to avoid him having to leave the hospital, but it appears that he declined. He is deciding on whether to continue his hospitalization now as recommended or return after taking care of his important task. Discussed with ER provider and cardiology team who are also aware and have spoken with him as well. (2) Lung infiltrate: May benefit from addition of azithromycin with possible atypical pneumonia. Otherwise would benefit from further workup, sputum culture to help guide acute treatment, and subsequently at some point pulmonary function test and possibly follow-up with pulmonary in case of lack of improvement for further assessment of possible progressive chronic disease. As discussed with him should avoid vaping. As I do not have access to discharge instructions or prescriptions in ER, discussed with ER provider in case he decides not to stay but to discharge from ER, and discussed with ER provider as well addition of atypical coverage. (3) Troponin level elevated: Has been assessed by cardiology as well, as discussed with him possible heart attack, discussed additional assessment and management including telemetry monitoring, echocardiogram, additional treatment, has been seen by cardiology who are also putting in their recommendations. He is currently deciding whether he may stay and pursue additional assessment and treatment as discussed or leave AGAINST MEDICAL ADVICE and return to ER shortly after. (4) D-dimer, elevated: CTA reviewed, no PE. May be related to the pulmonary condition either nonresolving pneumonia versus possibly more progressive lung disease. Would benefit from echocardiogram as discussed with him and consider venous duplex. (5) Lung nodule: Looks like on CTA he is also incidentally found to have 1.37 cm indeterminate soft tissue nodule in the LEFT lower lobe. 6-month follow-up contrast CT scan of the chest recommended for surveillance. Discussed with ER provider to also have instructions for him in case he decides not to stay. (6) Pleural effusion: Possible related to decompensated new/acute congestive heart failure with cardiomegaly troponin elevation, pulmonary changes, possible congestive changes, versus possible pneumonia/typical pneumonia. He is afebrile, without leukocytosis, without chest pain, pleuritic discomfort, no signs of empyema at current time. (7) Renal dysfunction: Longstanding hypertension, mild renal dysfunction is noted, creatinine up to 1.3, blood pressure assessment 1.4, possible HTN related CKD. Would benefit from follow-up with primary provider. Plan Vaping: Discussed with him to stop and avoid vaping with risk of possible lung injury, with risk of possible lung injury. PDMP PDMP Reviewed: Not Reviewed Consult Attestations 2 Medical Necessity Statement: Patient is currently deciding whether he may stay and continue assessment and treatment of the health concerns or go and take care of an important matter and then return to the ER. and High MDM includes amount and/or complexity of data reviewed/ordered [ previous or external records, resulted lab(s)/test(s), ordered lab(s)/test(s) and other healthcare professional discussion] as documented Diagnoses Dyspnea R06.00 Lung infiltrate R91.8 Troponin level elevated R79.89 D-dimer, elevated R79.89 Lung nodule R91.1 Pleural effusion J90 Renal dysfunction N28.9
[2024-09-22] MEDS: FUROsemide 10 mg/mL SDV 4mL 40 MG IVP (10:52)
--- NOTE | 2024-09-22 11:13 | PC.NURSE ---
PT STILL REQUESTED TO LEAVE AMA. PT REFUSED VITAL SIGNS PRIOR TO LEAVING. THIS NURSE, DR. NELSON, DR. ROME, DR. CLARK, AND [facility], SAMANTHA CAMPUZANO, EDUCATED PT MULTIPLE TIMES ON THE NEED TO STAY AND BE TREATED. PT STILL REQUESTING TO LEAVE. AMA FORM OBTAINED. THIS NURSE EDUCATED ONE MORE TIME ON THE NEED FOR PT TO STAY AND BE TREATED. PT STATES I STILL WANT TO LEAVE. THIS NURSE ASKED PT TO RAISE HIS SHIRT SLEEVE TO TAKE OUT HIS IV. PT STATED I WAS JUST GOING TO LEAVE IT IN FOR WHEN I CAME BACK. THIS NURSE EDUCATED PT THAT THE IV HAD TO BE REMOVED PRIOR TO LEAVING. PT COOPERATED AND ALLOWED THIS NURSE TO REMOVE IV. IV REMOVED, CATHETER INTACT. PRESSURE DRESSING APPLIED TO IV SITE. PT EDUCATED ON AMA FORM AND ASKED IF PT HAD ANY QUESTIONS. PT REQUESTED HIS MEDICAL RECORDS FROM TODAYS VISIT AND HIS VISIT ON 09/17. THIS NURSE EDUCATED PT THAT ALL RECORD RELEASES HAD TO GO THROUGH MEDICAL RECORDS. PT STATED I AM NOT SIGNING THIS PAPER UNTIL YOU GET MY RECORDS FOR ME. THIS NURSE EDUCATED PT AGAIN HOW TO OBTAIN HIS RECORDS AND THAT HE IS NOT ABLE TO OBTAIN THEM FROM THE ER. PT STATED WELL, I AM NOT SIGNING THAT UNTIL YOU FIND ME SOMEONE TO GET ME MY RECORDS. [facility], SAMANTHA CAMPUZANO, WAS BROUGHT TO PT ROOM TO EDUCATE PT AGAIN ON THE RISK OF LEAVING AMA AND THE PROCESS OF OBTAINING MEDICAL RECORDS. PT VERBALIZED UNDERSTANDING BUT STILL REFUSED TO SIGN THE PAPER. THIS NURSE AND SAMANTHA CAMPUZANO, TWO NURSE SIGNED AMA FORM. PT WAS ESCORTED OUT OF FACILITY BY SAMANTHA CAMPUZANO.
--- NOTE | 2024-09-22 11:36 | P.CONIM_ITS ---
<Statement entered by Alvarez Rivas MD - 09/22/24 18:29> Patient was evaluated and cared for in conjunction with an advanced practice practitioner. I personally examined the patient and reviewed the chart and all pertinent data including imaging, telemetry, and laboratory results. I discussed the patient in detail with the advanced practice practitioner. Please see their note for complete H&P testing result and agreed upon plan of care for the patient. 49-year-old male past medical history significant for smokeless tobacco abuse, hypertension who presented worsening of shortness of breath noted to have infiltrates in the right lung with differential of pneumonia heart failure pneumonitis vaping injury, he was also noted to have elevated cardiac markers in the form of troponin. He denies categorically chest pain PND orthopnea. GENERAL: Patient is alert, awake and oriented x3. HEART: Regular S1 and S2. No murmur, rub or gallop. LUNGS: Decreased bilaterally. CENTRAL NERVOUS SYSTEM: Grossly nonfocal. EXTREMITIES: Lower extremities with out edema bilaterally. Assessment and plan Shortness of breath Elevated cardiac markers Continuous smokeless tobacco abuse Lung infiltrate Advise echocardiogram IV Lasix 40 mg twice daily Trending up cardiac markers if increase start heparin Patient may need ischemic workup depending upon echocardiogram wall motion or elevation of cardiac markers left heart cath versus stress test Treatment of pneumonia and pneumonitis as per medicine Patient would like to leave AMA. He has been explained all risk-benefit and alternatives. He understand risk for sudden cardiac myocardial infarction arrhythmia worsening of heart failure. He still would like to leave. Advise in case of worsening of symptom he should call 911 and come back to the ER. Providers/Reason For Consult 2 Consulting Physician/Specialty*: Alvarez Rivas MD Reason for Consult*: Elevated troponin, possible CHF exacerbation Requesting Physician: Dr. Blount Attending Physician: Dr. Armstrong History of Present Illness History of Present Illness Andry Del Cid is a 49 year old male who presented to the emergency room with difficulty breathing. He denies any orthopnea. He reports shortness of breath on exertion. Denies any chest pain. Denies any significant cardiac history. A few days ago he was started on cefdinir as well as albuterol for pneumonia. He had a right lower lobe pneumonia. He does have a history of vaping. He takes verapamil for hypertension. Per patient no history of arrhythmia or CAD. X-ray showed interval increase in opacities in the right lung field suggestive of possible multifocal pneumonia. CTA of the chest showed bilateral pleural effusions worse in the right. This could represent worsening pneumonia or pulmonary edema secondary to CHF. He did have cardiomegaly present. Incidentally found was a 1.37 cm nodule in the left lower lobe. Baseline troponin was 183?201.5, awaiting 6-hour reading. His proBNP was elevated at 2827. EKG showed no acute ST elevation or T wave abnormalities. Viral panel was negative. We were consulted for possible NSTEMI and new onset CHF. Review of Systems 2 Narrative: Consitutional: denies fever, chills, body aches, or changes in appetite, denies abnormal weight loss Eyes: Denies changes in vision Card: Denies chest pain, palpitations, irregular heart rhythm, edema, syncope, shortness of breath, orthopnea, leg pain with exertion Resp: Reports shortness of breath on exertion relieved with rest, denies hemoptysis, denies cough GI: denies abdominal pain, denies nausea or voimting, denies blood in stool : denies blood in urine, denies dysuria Musc: Denies extremity pain, denies limited range of motion or recent injury Skin: Denies rash, lesions, or wounds, denies changes to skin color Neuro: Denies nubmness in extremities, h/a, s/s of stroke Lauri: Denies easy bruiding/bleeding Medications/Allergies Home Medications ?Medication ?Instructions ?Recorded ?Confirmed ?Last Taken ?Type albuterol sulfate 90 mcg/actuation 2 inh inhalation Q6 H PRN shortness 09/18/24 09/22/24 Unknown Rx aerosol inhaler (Ventolin HFA) of breath or wheezing # 6.7 grams cefdinir 300 mg capsule 300 mg PO BID 10 days #20 ca ps 09/18/24 09/22/24 Unknown Rx verapamil 240 mg tablet,extended 240 mg PO BEDTIME 09/22/24 Unknown History release Allergies Allergy/AdvReac Type Severity Reaction Status Date / Time No Known Allergies Allergy Verified 09/22/24 05:44 PFSH Acute 2 PFSH: Medical History HTN (hypertension) Cluster headache Social History (Updated 09/22/24 @ 10:54 by Frandy Armstrong MD) Smoking and tobacco/nicotine status: current every day tobacco/nicotine user e- cigarettes Alcohol intake: never Substance/Drug Use: current Substance/Drug use frequency: Special occassions/opportunity only Vitals/I&O/Wt Last Vital Signs Temp 98.0 F 09/22/24 05:41 Pulse 102 H 09/22/24 10:00 Resp 29 H 09/22/24 06:18 BP 153/116 09/22/24 10:00 Pulse Ox 90 09/22/24 10:00 O2 Del Method Room Air 09/22/24 10:00 O2 Flow Rate 2 09/22/24 07:49 09/21/24 09/22/24 09/22/24 22:59 06:59 14:59 Intake Total 0 / 0 Balance 0 / 0 Weight last 48 hrs Weight 220 lb Physical Exam 2 Narrative: General: No apparent distress, healthy appearing, well nourished Muskuloskeletal: Full ROM Respiratory: Normal respiratory effort, bilateral lower lobes diminished, no use of accessory muscles Cardio: No JVD, regular rate, regular rhythm, S1 S2 normal, no murmurs GI: Normal to inspection, nondistended Extremities: Full ROM, normal, normal capillary refill, no cyanosis or edema Neuro: Alert and oriented x4, no focal motor deficits Psych: Affect normal, denies suicidal ideation, mental status grossly normal Skin: No rashes or lesions noted, no wounds Data 09/22/24 06:45 09/22/24 06:45 A&P Assessment and plan (1) Non-ST elevation OK (NSTEMI): (2) HTN (hypertension): Qualifiers: Hypertension type: primary hypertension Qualified Code(s): I10 - Essential (primary) hypertension (3) CHF (congestive heart failure): Qualifiers: Heart failure type: other Qualified Code(s): I50.9 - Heart failure, unspecified (4) Troponin level elevated: Plan Patient has abnormal x-ray with shortness of breath on exertion. Possible differentials include but are not limited to pneumonitis, worsening pneumonia, NSTEMI, heart attack, or type II OK from possible heart failure. At this time patient states he is going to leave AGAINST MEDICAL ADVICE. We have recommended against this. He does understand that he could have a heart attack, have deadly arrhythmias, or deteriorate respiratory garcia leading to . He accepts these risks. Our recommendation would be he stay for further workup for possible NSTEMI and CHF with echo and give IV diuresis, but at this time he states he is leaving. Thank you, Dr. Blount, for allowing us to care for this patient. PDMP PDMP Reviewed: Not Reviewed Consult Attestations 2 Medical Necessity Statement: Patient is stating he is leaving AMA. Coding Level of Care Code Acute Code for [facility] Fwd Diagnoses Non-ST elevation OK (NSTEMI) I21.4 Primary hypertension I10 Hypertension type: primary hypertension Other congestive heart failure I50.9 Heart failure type: other Troponin level elevated R79.89
== END 2024-09-22 11:10 | disposition left against medical advice (07) ==
PROVIDERS: Emergency Medicine; Emergency Provider Family Medicine
DX: I21.4 Non-ST elevation (NSTEMI) myocardial infarction (principal); I11.0 Hypertensive heart disease with heart failure; I50.9 Heart failure, unspecified; R91.1 Solitary pulmonary nodule; Z11.52 Encounter for screening for COVID-19; F17.290 Nicotine dependence, other tobacco product, uncomplicated
CPT/HCPCS: 71045; 71275; 80053; 83880; 84145; 84484; 85025; 85378; 86140; 87637; 93005; 96374; 99285; J1940

== ENCOUNTER 2024-09-22 16:11 | Inpatient (IN) | payer OTHER, SELFPAY ==
[2024-09-22 16:25] VITALS: BP 161/119; PULSE 99; TEMP 36.7; O2SAT 95; BMI 32.5
--- NOTE | 2024-09-22 16:29 | ECG_ITS ---
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 Measurements Intervals [place] Rate: 95 P: 44 MA: 188 QRS: -49 QRSD: 113 T: 131 QT: 377 QTc: 476 Interpretive Statements SINUS RHYTHM LEFT ATRIAL ENLARGEMENT [-0.15mV P-WAVE IN V1/V2] INCOMPLETE RIGHT BUNDLE BRANCH BLOCK [90+ ms QRS DURATION, TERMINAL R IN V1/V2, 40+ ms S IN I/aVL/V4/V5/V6] LEFT ANTERIOR FASCICULAR BLOCK [QRS AXIS <= -45, QR IN I, RS IN II] POSSIBLE LEFT VENTRICULAR HYPERTROPHY [VOLTAGE CRITERIA PLUS LAE OR QRS WIDENING] MODERATE T-WAVE ABNORMALITY, CONSIDER LATERAL ISCHEMIA [-0.1+ mV T-WAVE IN I/aVL/V5/V6] INTERPRETATION BASED ON A DEFAULT AGE OF 40 YEARS Compared to ECG 09/22/2024 08:55:09.T-wave abnormality now present Possible ischemia now present.Myocardial infarct finding no longer present Electronically Signed On 09-22-2024 20:27:05 NEWS ANCHOR by Naomy Elizalde M.D. [id number]
--- NOTE | 2024-09-22 16:54 | ED_ITS ---
HPI - Recheck/Abnormal Lab/Rx General: Chief Complaint: Recheck/Abnormal Lab/Rx Stated Complaint: heart issues/supposed to be admitted? Time Seen by Provider: 09/22/24 16:36 History of Present Illness: Patient seen earlier today we have advised admission he left AMA returns for admission. He wanted to go home and do some things and get his phone. He is not having any further chest pain no further symptoms. He had a positive delta Trope there is also concerning worsening pneumonia on his chest x-ray and CT there is no PE noted on the CTA. Reviewed previous note. Related Data Home Medications ?Medication ?Instructions ?Recorded ?Confirmed verapamil 240 mg tablet,extended 240 mg PO BEDTIME 09/22/24 release Previous Rx's ?Medication ?Instructions ?Recorded albuterol sulfate 90 mcg/actuation 2 inh inhalation Q6 H PRN shortness 09/18/24 aerosol inhaler (Ventolin HFA) of breath or wheezing # 6.7 grams cefdinir 300 mg capsule 300 mg PO BID 10 days #20 ca ps 09/18/24 azithromycin 250 mg tablet See Rx Instructions PO .COM PLEX #6 09/22/24 (Zithromax Z-Julien) tabs furosemide 20 mg tablet (Lasix) 20 mg PO DAILY #7 tabs 09/22/24 Allergies Allergy/AdvReac Type Severity Reaction Status Date / Time No Known Allergies Allergy Verified 09/22/24 16:34 Review of Systems Const: Denies: fever(s) or chills Card: Denies: chest pain Resp: Reports: dyspnea GI: Denies: abdominal pain : Denies: dysuria, urinary frequency or urinary urgency Musc: Denies: neck pain or back pain Skin/Breast: Denies: rash PFSH ED PFSH: Medical History HTN (hypertension) Cluster headache Social History Smoking and tobacco/nicotine status: current every day tobacco/nicotine user e- cigarettes Alcohol intake: never Substance/Drug Use: current Substance/Drug use frequency: Special occassions/opportunity only Physical Exam Const: GENERAL APPEARANCE: cooperative ORIENTATION/CONSCIOUSNESS: Yes awake, Yes oriented to person, Yes oriented to place and Yes oriented to time HENMT: COMMON NORMALS: normocephalic, atraumatic and hearing grossly normal bilaterally HEAD & SCALP: normocephalic and atraumatic Resp: COMMON NORMALS: normal respiratory effort, No retractions, No use of accessory muscles and clear to auscultation bilaterally AUSCULTATION: clear to auscultation bilaterally Cardio: COMMON NORMALS: regular rate, regular rhythm and No murmurs present (Cardio) RATE: regular rate RHYTHM: regular rhythm GI: COMMON NORMALS: Soft to palpation and No hepatosplenomegaly present AUSCULTATION: Yes normoactive bowel sounds PALPATION: Yes Soft to palpation, No Tenderness to palpation present (GI), No Guarding due to palpation present (GI) and Yes No hepatosplenomegaly present Extremity: COMMON NORMALS: normal to inspection, capillary refill normal, no clubbing, cyanosis or edema, no calf tenderness and no pedal edema Neuro: SENSORIUM/ORIENTATION: Yes oriented to person, Yes oriented to place and Yes oriented to time Skin: COMMON NORMALS: no rashes or lesions noted GENERAL SKIN EXAM: no rashes or lesions noted Course Vital Signs: Vital signs: Vital Signs Temperature 98.1 F 09/22/24 16:25 Pulse Rate 99 09/22/24 16:25 Blood Pressure 161/119 09/22/24 16:25 Pulse Oximetry 95 09/22/24 16:25 Oxygen Delivery Me thod Room Air 09/22/24 16:25 MDM - Recheck/Abnormal Lab/Rx Medical Decision Making Will readmit. Patient orders rewritten repeat troponin series and EKG alerted Carl Lopez that the patient had returned Dr. Raza as he is no longer available patient will be admitted to Dr. Mazariegos is a hospitalist Medical Records I reviewed the patient's medical records. Lab Data I reviewed the patient's lab results. All radiology interpretation(s) finalized by discharge Discharge Plan Discharge Patient Disposition: Admitted As Inpatient Admit Provider: Bianca Washington Clinical Impression: Non-ST elevation HI (NSTEMI), Pulmonary nodule 1 cm or greater in diameter, Community acquired pneumonia, HTN (hypertension), CHF (congestive heart failure) Condition: Stable Coding Level of Care Code ED High School Director for Rony Maldonado
[2024-09-22 17:28] VITALS: BP 161/119; PULSE 102; O2SAT 93
--- NOTE | 2024-09-22 17:28 | PM.HP ---
Providers/Chief Complaint Admitting Physician: Bianca Washington Chief Complaint: heart issues/supposed to be admitted? History of Present Illness 49-year-old male with a past medical history significant for hypertension, tobacco and vaping use who presented to the hospital with shortness of breath for the past few months, progressively getting worse. The shortness of breath increases when laying down sleeping. He denies chest discomfort, fever, chills, nausea, vomiting, and is not coughing up anything for the most part. He has smoked since he was younger and started vaping daily up until one week ago. The patient was seen in the ER on 09/18/2024 during which time he had been complaining of 2 weeks of shortness of breath. Workup in the ER on 09/18/2024 included a chest x-ray which showed patchy alveolar airspace disease in both lower lobes suspicious for pneumonia. He was discharged on cefdinir 300 mg twice daily and Ventolin inhaler. He returned earlier today to the ER with similar complaints. Chest x-ray was repeated earlier today which showed interval increase in patchy opacities in the right lower, middle and inferior lower lobes. Dense retrocardiac opacity was seen. Additionally, he was noted to have cardiomegaly and a tortuous calcified aorta. CTA of chest showed a posterior bilateral pleural effusion, most marked on the right, and diffuse interstitial infiltrates bilaterally suggestive of infection versus edema. Incidentally, a 1.37 cm indeterminate soft tissue nodule was noted in the left lower lobe, for which a 6 month follow-up CT scan was recommended. The patient denies abdominal pain or diarrhea. He notes constipation, which he attributes to sitting on the toilet for two hours waiting. He denies swelling in his legs, lightheadedness, dizziness, or falling anywhere. 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 He can not recall all interventions however stated he had two stents were placed in his carotid artery. This occurred after he passed out and in his driveway in [place]. He was treated at [facility]. He is not clear if they were carotid stents or vertebral. After the procedure, he was placed on baby aspirin but has not followed up since. He denies any other hospitalizations. Initial evaluation in the ER revealed: - Laboratory Findings: WBC 11, hemoglobin 13, hematocrit 40, platelets 357, D-dimer 2.18, sodium 136, potassium 4.7, chloride 99, bicarb 23, BUN 18, creatinine 1.3 (prior 1.4 on 09/18/2024), glucose 141, proBNP 2827, troponin T baseline 183 with repeat of 201 in 120 minutes (delta 18.5), CRP 4.5. - Imaging Studies: Chest x-ray with interval increase in patchy opacities in right lower, middle and inferior lower lobes, dense retrocardiac opacity, cardiomegaly and tortuous calcified aorta. CTA chest with posterior bilateral pleural effusions, most marked on the right, diffuse interstitial infiltrates bilaterally suggestive of infection versus edema, and incidental 1.37 cm indeterminate soft tissue nodule in the left lower lobe. He remains hemodynamically stable. Review of Systems General: Reports: 10 or more systems reviewed and unremarkable except in HPI and below Medications/Allergies Home Medications ?Medication ?Instructions ?Recorded ?Confirmed ?Last Taken ?Type albuterol sulfate 90 mcg/actuation 2 inh inhalation Q6H PRN shortness 09/18/24 09/22/24 Unknown Rx aerosol inhaler (Ventolin HFA) of breath or wheezing #6.7 grams cefdinir 300 mg capsule 300 mg PO BID 10 days #20 caps 09/18/24 09/22/24 Unknown Rx verapamil 240 mg tablet,extended 240 mg PO BEDTIME 09/18/24 09/22/24 Unknown History release azithromycin 250 mg tablet See Rx Instructions PO .COMPLEX #6 09/22/24 Unknown Rx (Zithromax Z-Julien) tabs furosemide 20 mg tablet (Lasix) 20 mg PO DAILY #7 tabs 09/22/24 Unknown Rx Allergies Allergy/AdvReac Type Severity Reaction Status Date / Time No Known Allergies Allergy Verified 09/22/24 16:34 PFSH Acute PFSH: Medical History HTN (hypertension) Cluster headache Social History Smoking and tobacco/nicotine status: current every day tobacco/nicotine user e-cigarettes Alcohol intake: never Substance/Drug Use: current Substance/Drug use frequency: Special occassions/opportunity only Vitals/I&O/Wt Last Vital Signs Temp 98.1 F 09/22/24 16:25 Pulse 99 09/22/24 16:25 BP 161/119 02/17/25 16:25 Pulse Ox 95 09/22/24 16:25 O2 Del Method Room Air 09/22/24 16:25 Weight last 48 hrs Weight 99.79 kg Physical Exam Narrative: - General: No acute distress - Cardiovascular: Regular rate and rhythm, no murmurs, rubs or gallops - Respiratory: Lungs clear to auscultation bilaterally, no wheezes, rales or rhonchi - Abdomen: Soft, nontender, nondistended, no hepatosplenomegaly - Extremities: No edema, cyanosis or clubbing - Neurological: Alert and oriented x3, no focal deficits A&P Assessment and plan (1) Troponin level elevated: (2) Elevated brain natriuretic peptide (BNP) level: (3) Dyspnea: Plan Elevated Troponin - Likely multifactorial etiology, including possible new-onset heart failure (elevated proBNP) and chronic vaping-induced lung injury with possible superimposed bacterial pneumonia. Differential Diagnosis: 1. Acute coronary syndrome 2. Myocarditis Plan: 1. Echocardiogram 2. Repeat troponin to evaluate for upward trend. 3. Cardiology consultation noted 4. Heparin drip per protocol started 5. Aspirin started 6. Lipid Panel in am Shortness of Breath - Multifactorial etiology likely contributing to the patient's progressive shortness of breath over the past few months, worse when laying down. Potential causes include heart failure, pneumonia, and pulmonary edema. Possible post viral cardiomyopathy - Elevated BNP - Imaging noted above. - No PE. Plan: 1. Echocardiogram 2. Trend troponins and monitor for any chest pain or EKG changes. 3. Daily weight, Strict I&O 4. Less likely infectious, CRP -negative, check Pro-calcitonin ( Monitor off antibiotics for now) Tobacco and Vaping Use Disorder - Long-standing history of tobacco smoking since youth, transitioned to vaping when it became available. Ceased vaping a few weeks ago. Plan: 1. If needed smoking/vaping cessation resources and support Constipation - Chronic constipation, likely multifactorial with contribution from verapamil use. Plan: 1. Bowel regimen History of Carotid Pseudoaneurysms Status Post Stenting (2012) - Two pseudoaneurysms treated with stent placement. Unclear location however thinks these might have been in the carotids at [facility] after the patient suffered a syncopal episode. Placed on baby aspirin after procedure but lost to follow-up. Plan: 1. Obtain outside records from [facility] for details of procedure and post-operative recommendations. Incidental Pulmonary Nodule - 1.37 cm indeterminate soft tissue nodule noted in the left lower lobe on CTA chest. Plan: 1. Recommend 6-month follow-up CT scan for stability assessment. PDMP PDMP Reviewed: Not Reviewed Attestations Medical Necessity Statement*: Anticiapte over 2 midnight stay in hospital for work up of elevated troponin, possible new onset HF needing med optimization, cardiology consult and Echo Coding Level of Care Code Acute Code for Chg Fwd Diagnoses Troponin level elevated R79.89 Elevated brain natriuretic peptide (BNP) level R79.89 Dyspnea R06.00
[2024-09-22] MEDS: pantoprazole 40 mg SDV IVP (18:13)
[2024-09-22] MEDS: heparin 5,000 unit/mL INJ 1 mL IVP (18:13)
[2024-09-22 18:20] LABS: Platelet Count 368 10^3/cmm (157-399)
[2024-09-22] MEDS: heparin drip 25,000 UNIT/500 ML PREMIX 28 UNIT IV (18:21)
[2024-09-22 18:42] LABS: Troponin(5th) Baseline 172 ng/L (0-15)
--- NOTE | 2024-09-22 18:46 | ECG_ITS ---
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 Measurements Intervals [place] Rate: 103 P: 50 MT: 202 QRS: -54 QRSD: 112 T: 80 QT: 430 QTc: 564 Interpretive Statements SINUS TACHYCARDIA LEFT ATRIAL ENLARGEMENT [-0.15mV P-WAVE IN V1/V2] INCOMPLETE RIGHT BUNDLE BRANCH BLOCK [90+ ms QRS DURATION, TERMINAL R IN V1/V2, 40+ ms S IN I/aVL/V4/V5/V6] LEFT ANTERIOR FASCICULAR BLOCK [QRS AXIS <= -45, QR IN I, RS IN II] POSSIBLE LEFT VENTRICULAR HYPERTROPHY [VOLTAGE CRITERIA PLUS LAE OR QRS WIDENING] MODERATE T-WAVE ABNORMALITY, CONSIDER LATERAL ISCHEMIA [-0.1+ mV T-WAVE IN I/aVL/V5/V6] Compared to ECG 09/22/2024 16:29:51.Sinus rhythm no longer present T-wave abnormality still present. Possible ischemia still present Electronically Signed On 09-22-2024 20:29:32 CALL OUT CLERK by Naomy Elizalde M.D. [email or web address]
[2024-09-22 19:00] VITALS: BP 157/118; BP 160/125; PULSE 100; PULSE 104; RESP 22; RESP 32; TEMP 37.2; O2SAT 93; O2SAT 95
[2024-09-22 19:00] LABS: Procalcitonin 0.11 ng/mL (0-0.5)
[2024-09-22 19:53] VITALS: BP 159/101; PULSE 104; RESP 27; TEMP 36.4; O2SAT 98
[2024-09-22 22:00] VITALS: PULSE 102
[2024-09-22 22:22] LABS: Troponin 5 2HR 195.9 ng/L (0-15); Troponin 5 2HR Delta 23.9 ABS# (0-10)
--- NOTE | 2024-09-22 22:39 | ECG_ITS ---
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: : 1975 Requested By: Sravan Franco Order Number: [id number] Reading MD: PIPO CLARK Measurements Intervals [place] Rate: 103 P: 69 CA: 202 QRS: -57 QRSD: 114 T: 93 QT: 455 QTc: 597 Interpretive Statements SINUS TACHYCARDIA WITH OCCASIONAL VENTRICULAR PREMATURE COMPLEXES LEFT ATRIAL ENLARGEMENT [-0.15mV P-WAVE IN V1/V2] LEFT AXIS DEVIATION [QRS AXIS < -30] INCOMPLETE RIGHT BUNDLE BRANCH BLOCK [90+ ms QRS DURATION, TERMINAL R IN V1/V2, 40+ ms S IN I/aVL/V4/V5/V6] SEPTAL MYOCARDIAL INFARCTION , PROBABLY OLD [40+ ms Q WAVE IN V1/V2] MODERATE T-WAVE ABNORMALITY, CONSIDER LATERAL ISCHEMIA [-0.1+ mV T-WAVE IN I/aVL/V5/V6] Compared to ECG 09/22/2024 18:46:08 Ventricular premature complex(es) now present Electronically Signed On 09-30-2024 23:57:22 BUSINESS SERVICES ASSOCIATE by PIPO CLARK [email or web address]
[2024-09-23] VITALS (10 sets, daily range): BP systolic 114–193; BP diastolic 93–133; PULSE 90–110; RESP 16–28; TEMP -12.4–36.7; O2SAT 90–100
[2024-09-23 02:02] LABS: Partial Thromboplastin Time 34.5 SECONDS (23.9-36.7)
[2024-09-23] MEDS: heparin 5,000 unit/mL INJ 1 mL IVP (02:20)
[2024-09-23 02:29] LABS: Troponin 5 6HR 202.3 ng/L (0-15); Troponin 5 6HR Delta 30.3 ng/L (0-12)
[2024-09-23 03:10] LABS: Basophils # 0.1 10^3/uL (0.0-0.1); Basophils % 1.1 %; Eosinophils # 0.3 10^3/uL (0.0-0.8); Eosinophils % 3.2 %; Hematocrit 41.4 % (37-53); Lymphocytes # 1.8 10^3/uL (0.8-4.8); Lymphocytes % 22.4 %; Mean Corpuscular HGB Conc 32.1 g/dL (30-55); Mean Corpuscular Hemoglobin 29.6 pg (27-33); Mean Platelet Volume 10.7 fL (7.4-10.4); Monocytes # 0.9 10^3/uL (0.2-0.9); Monocytes % 11.3 %; Neutrophils # 4.99 10^3/uL (1.8-7.7); Neutrophils % 61.6 %; Nucleated Red Blood Cells % 0 %; Platelet Count 283 10^3/cmm (157-399); Red Cell Distribution Width 13.4 % (12.1-15.1); White Blood Count 8.11 10^3/uL (3.29-11.43)
[2024-09-23 03:33] LABS: Blood Urea Nitrogen 18 mg/dL (6-20); Calcium 8.8 mg/dL (8.5-10.5); Carbon Dioxide 23 mmol/L (22-29); Chloride 100 mmol/L (98-107); Creatinine Clr Calc Pharmacy 76.4464; Glomerular Filtration Rate 53.6 mL/min (90-130); Glucose 147 mg/dL (65-115); Osmolality Calculated 289 mOsm/kg (285-295); Sodium 137 mmol/L (136-145)
[2024-09-23 03:38] LABS: Chol HDL Ratio 2.62 mg/dL (1.0-5.00); Cholesterol 123 mg/dL (0-200); HDL Cholesterol 47 mg/dL (60-100); LDL Cholesterol Calculated 54 mg/dL (50-129); LDL HDL Ratio 1.15 RATIO (0.00-3.22); Triglycerides 110 mg/dL (0-150)
[2024-09-23 03:39] LABS: Estmated Average Glucose 105; Hemoglobin A1C 5.3 % (4.0-6.0)
[2024-09-23] MEDS: pantoprazole 40 mg SDV IVP (04:01)
--- NOTE | 2024-09-23 07:43 | PC.NURSE ---
Patient is concerned to be discharged prior to bad weather. Patient also c/o mild palpitations with associated SOB. Noted patient to have slightly elevated heart rate in the 110s. Instructed patient on potential causes and informed him of his elevated troponins as well. Patient verbalized understanding and is agreeable to stay to have things checked out . Patient reports feeling some better. Will continue to monitor.
[2024-09-23] MEDS: labetalol 5 mg/mL SDV 20mL 10 MG IVP (08:27)
--- NOTE | 2024-09-23 08:45 | PC.NURSE ---
Patient's heart rate 110s with elevated BP of 193/133. Informed Dr Sherman. placed order for Labetolol 10mg IVP onetime. Medication administered as ordered and documented. Heart rate at this time is 95 with BP of 144/111
--- NOTE | 2024-09-23 09:02 | USCV_ITS ---
Andry Del Cid Age: 49 Gender: M : 1975 Exam Date: 09/23/2024 09:40 Ordering Phys: Bernardo Sherman MD Technologist: Exam Location: [facility] – [place] Indication: cp BP: 161 / 114 HR: 90 Rhythm: Sinus Technical Quality: Adequate MEASUREMENTS (Male / Female) Normal Values 2D ECHO LVOT Diameter 2.7 cm LV Ejection Fraction MOD 4C 40.4 % LV Ejection Fraction MOD 2C 28.6 % LV Ejection Fraction 2C AL 26.4 % LA Diameter 4.5 cm Aorta at Sinotubular Diameter 3.3 cm IVC Diameter 2.4 cm M-MODE LA Ao Ratio MM 1.1 AV Cusp Separation MM 2.2 cm DOPPLER AV Peak Velocity 120.0 cm/s LVOT Peak Velocity 50.0 cm/s AV Area Cont Eq vti 1.9 cm squared AV Area Cont Eq pk 2.4 cm squared MV Peak Velocity 116.0 cm/s MV Area PHT 6.3 cm squared Mitral E to A Ratio 1.5 TV Peak Velocity 188.0 cm/s TR Peak Velocity 265.0 cm/s TR Peak Gradient 28.1 mmHg TV Peak E Velocity 113.0 cm/s PV Peak Velocity 68.0 cm/s FINDINGS Left Ventricle Left ventricle is normal in size. LV systolic function is severely reduced with EF of 25-30%. Severe global hypokinesis. Right Ventricle Normal in size and function Right Atrium Dilated Left Atrium Dilated Mitral Valve Structurally normal mitral valve. Mild mitral regurgitation. Aortic Valve Structurally normal aortic valve. Mild aortic regurgitation. No significant stenosis. Tricuspid Valve Mild tricuspid regurgitation. Pulmonary artery systolic pressure is normal Pulmonic Valve Not well visualized Pericardium Normal Aorta Normal in size IVC Appears to be dilated CONCLUSIONS LV systolic function is severely reduced with EF of 25-30% Biatrial dilation Mild mitral regurgitation Mild aortic regurgitation Mild tricuspid regurgitation IVC appears to be dilated. No comparison studies are available. Robin Marley MD (Electronically Signed) Final Date: 23 September 2024 20:22 S
[2024-09-23 09:08] LABS: Partial Thromboplastin Time 107.4 SECONDS (23.9-36.7)
[2024-09-23] MEDS: FUROsemide 10 mg/mL SDV 4mL 40 MG IVP (10:05)
[2024-09-23] MEDS: aspirin 81 mg EC Tablet PO (10:06)
[2024-09-23] MEDS: carvedilol 6.25 mg Tablet PO ×2 (10:06→17:39)
[2024-09-23] MEDS: amlodipine 10 mg Tablet PO (10:06)
[2024-09-23 10:48] LABS: Iron 41 ug/dL (59-158); Percent Saturation 13.8 % (20-50); Thyroid Stimulating Hormone 3.32 uIU/mL (0.27-4.20); Total Iron Binding Capacity 295 mcg/dl; Unsaturated Iron Binding 254 ug/dL (112-347)
[2024-09-23] MEDS: heparin drip 25,000 UNIT/500 ML PREMIX 28 UNIT IV (11:29)
--- NOTE | 2024-09-23 13:39 | P.CONIM_ITS ---
<Statement entered by Robin Marley M.D - 09/23/24 23:32> Patient was evaluated and cared for in conjunction with an advanced practice practitioner. I personally examined the patient and reviewed the chart and all pertinent data including imaging, telemetry, and laboratory results. I discussed the patient in detail with the advanced practice practitioner. Please see their note for complete consult note, results and agreed upon plan of care for the patient. GENERAL: Patient is alert and oriented HEART: Regular S1 and S2 LUNGS: Bilateral crackles EXTREMITIES: Lower extremities with 1+ edema 1) NSTEMI 2) Systolic congestive heart failure Continue diuretics. Close I and Os. Monitor renal function. Heparin gtt. NPO past midnight. If patient's renal function is stable by tomorrow, will plan on coronary angiogram with possible PCI Thank you for involving us with care of this patient. We will continue to follow. Please call with questions. Providers/Reason For Consult 2 Consulting Physician/Specialty*: Dr. Marley Reason for Consult*: possible CHF Attending Physician: Bernardo Sherman MD History of Present Illness History of Present Illness Andry Del Cid is a 49 year old male who presented to the emergency room yesterday with difficulty breathing. He denies any orthopnea. He reports shortness of breath on exertion. Denies any chest pain. Denies any significant cardiac history. A few days ago he was started on cefdinir as well as albuterol for pneumonia. He had a right lower lobe pneumonia. He does have a history of vaping. He takes verapamil for hypertension. Per patient no history of arrhythmia or CAD. X-ray showed interval increase in opacities in the right lung field suggestive of possible multifocal pneumonia. CTA of the chest showed bilateral pleural effusions worse in the right. This could represent worsening pneumonia or pulmonary edema secondary to CHF. He did have cardiomegaly present. Incidentally found was a 1.37 cm nodule in the left lower lobe. Baseline troponin was 183?201.5-202. His proBNP was elevated at 2827. EKG showed no acute ST elevation or T wave abnormalities. Viral panel was negative. We were consulted for possible NSTEMI and new onset CHF. He left AMA, and he is now back. Review of Systems 2 Narrative: Consitutional: denies fever, chills, body aches, or changes in appetite, denies abnormal weight loss Eyes: Denies changes in vision Card: Denies chest pain, palpitations, irregular heart rhythm, edema, syncope, shortness of breath, orthopnea, leg pain with exertion Resp: Reports shortness of breath on exertion relieved with rest, denies hemoptysis, denies cough GI: denies abdominal pain, denies nausea or voimting, denies blood in stool : denies blood in urine, denies dysuria Musc: Denies extremity pain, denies limited range of motion or recent injury Skin: Denies rash, lesions, or wounds, denies changes to skin color Neuro: Denies nubmness in extremities, h/a, s/s of stroke Lauri: Denies easy bruiding/bleeding Medications/Allergies Home Medications ?Medication ?Instructions ?Recorded ?Confirmed ?Last Taken ?Type albuterol sulfate 90 mcg/actuation 2 inh inhalation Q6 H PRN shortness 09/18/24 09/23/24 Unknown Rx aerosol inhaler (Ventolin HFA) of breath or wheezing # 6.7 grams cefdinir 300 mg capsule 300 mg PO BID 10 days #20 ca ps 09/18/24 09/23/24 Unknown Rx verapamil 240 mg tablet,extended 240 mg PO BEDTIME 09/23/24 Unknown History release azithromycin 250 mg tablet See Rx Instructions PO .COM PLEX #6 09/22/24 09/23/24 Unknown Rx (Zithromax Z-Julien) tabs furosemide 20 mg tablet (Lasix) 20 mg PO DAILY #7 tabs 09/22/24 09/23/24 Unknown Rx Allergies Allergy/AdvReac Type Severity Reaction Status Date / Time No Known Allergies Allergy Verified 09/22/24 16:34 Current Medications Generic Name Dose Route Start Last Admin Trade Name Freq PRN Reason Stop Dose Admin Amlodipine Besylate 10 mg 09/23/24 09:05 09/23/24 10:06 Amlodipine 10 Mg Tablet PO 10 mg DAILY ANJEL Administration Aspirin 81 mg 09/23/24 09:05 09/23/24 10:06 Aspirin 81 Mg Ec Tablet PO 81 mg DAILY ANJEL Administration Carvedilol 6.25 mg 09/23/24 09:05 09/23/24 10:06 Carvedilol 6.25 Mg Tablet PO 6.25 mg BID ANJEL Administration Heparin Sodium (Porcine) 0 unit 09/22/24 17:27 09/23/24 02:20 Heparin 5,000 Unit/Ml Inj 1 Ml IVP 5,000 unit PRN PRN Administration Heparin Weight Based Protocol -Subsequent Bolus Protocol Heparin Sodium/Sodium Chloride 25,000 unit in 500 mls @ 0 mls/hr 09/22/24 17:30 09/23/24 11:29 Heparin Drip IV 14.03 unit/kg/hr CONT ANJEL 28 mls/hr Administration Protocol Per Protocol Pantoprazole Sodium 40 mg 09/22/24 17:00 09/23/24 04:01 Pantoprazole 40 Mg Sdv IVP 40 mg Q12H ANJEL Administration PFSH Acute 2 PFSH: Medical History (Updated 09/23/24 @ 13:47 by Bernardo Sherman MD) Vapes nicotine containing substance HTN (hypertension) Cluster headache Social History Smoking and tobacco/nicotine status: current every day tobacco/nicotine user e- cigarettes Alcohol intake: never Substance/Drug Use: current Substance/Drug use frequency: Special occassions/opportunity only Vitals/I&O/Wt Last Vital Signs Temp 98.0 F 09/23/24 12:00 Pulse 98 09/23/24 12:00 Resp 24 H 09/23/24 12:00 BP 162/121 09/23/24 12:00 Pulse Ox 92 09/23/24 12:00 O2 Del Method Room Air 09/23/24 12:00 09/22/24 09/23/24 09/23/24 22:59 06:59 14:59 Intake Total 100 / 100 324 / 424 516.000 / 516.000 Balance 100 / 100 324 / 424 516.000 / 516.000 Weight last 48 hrs Weight 232 lb 14.4 oz Weight 238 lb 1.6 oz Weight 220 lb Physical Exam 2 Narrative: General: No apparent distress, healthy appearing, well nourished HENMT: normoceophalic Muskuloskeletal: Full ROM Lymphatic: no lymphedema noted Respiratory: Normal respiratory effort, clear to auscultation bilaterally throughout all lung garcia, no use of accessory muscles Cardio: No JVD, regular rate, regular rhythm, S1 S2 normal, no murmurs, peripheral pulses 2+ radial palpated bilaterally GI: Normal to inspection, nondistended Extremities: Full ROM, normal, normal capillary refill, no cyanosis or edema Neuro: Alert and oriented x4, no focal motor deficits Psych: Affect normal, denies suicidal ideation, mental status grossly normal Skin: No rashes or lesions noted, no wounds Data 09/23/24 02:41 09/23/24 02:41 A&P Assessment and plan (1) Non-ST elevation CO (NSTEMI): (2) HTN (hypertension): Qualifiers: Hypertension type: primary hypertension Qualified Code(s): I10 - Essential (primary) hypertension (3) CHF (congestive heart failure): Qualifiers: Heart failure type: other Qualified Code(s): I50.9 - Heart failure, unspecified (4) Troponin level elevated: Plan Patient has abnormal x-ray with shortness of breath on exertion. Possible differentials include but are not limited to pneumonitis, worsening pneumonia, NSTEMI, heart attack, or type II CO from possible heart failure. Agree with IV lasix. Agree with heparin drip. EF on echo was 25-30%. We will take him to the systems testing laboratory technician tomorrow for coronary angiogram, possible PCI. This was discussed with the patient by Dr. Marley. Thank you for allowing us to care for this patient. PDMP PDMP Reviewed: Not Reviewed Coding Level of Care Code Acute Code for g Fwd Diagnoses Non-ST elevation CO (NSTEMI) I21.4 Primary hypertension I10 Hypertension type: primary hypertension Other congestive heart failure I50.9 Heart failure type: other Troponin level elevated R79.89
--- NOTE | 2024-09-23 13:43 | P.PN_ITS ---
Subjective 2 Subjective: Hospital course, labs appreciated. Patient complaining of difficulty in breathing. States difficulty of breathing has been getting worse over last 2 months with most recently on minimal exertion and on laying down flat. Denies any nausea, vomiting, headache. Blood pressures overnight has been elevated. Vitals/I&O/Wt Last Vital Signs Temp 98.0 F 09/23/24 12:00 Pulse 98 09/23/24 12:00 Resp 24 H 09/23/24 12:00 BP 162/121 09/23/24 12:00 Pulse Ox 92 09/23/24 12:00 O2 Del Method Room Air 09/23/24 12:00 09/22/24 09/23/24 09/23/24 22:59 06:59 14:59 Intake Total 100 / 100 324 / 424 516.000 / 516.000 Balance 100 / 100 324 / 424 516.000 / 516.000 Weight last 48 hrs Weight 105.642 kg Weight 108 kg Weight 99.79 kg Physical Exam 2 Narrative: - General: No acute distress - Cardiovascular: Regular rate and rhyth m, tachycardia, soft pansystolic murmur at apex, rubs or gallops - Respiratory: Bilateral lower zone fine crackles, otherwise bronchial breath sounds all over lung garcia - Abdomen: Soft, nontender, nondistended , no hepatosplenomegaly - Extremities: No edema, cyanosis or clu bbing - Neurological: Alert and oriented x3, n o focal deficits Data 09/23/24 02:41 09/23/24 02:41 A&P Assessment and plan (1) Dyspnea: (2) Troponin level elevated: (3) Elevated brain natriuretic peptide (BNP) level: (4) CHF (congestive heart failure): Qualifiers: Heart failure type: other Qualified Code(s): I50.9 - Heart failure, unspecified (5) Uncontrolled hypertension: (6) Vapes nicotine containing substance: (7) CKD (chronic kidney disease): Plan Shortness of Breath Most likely in setting of congestive heart failure. Appreciate CT chest. Concerns for multiple diffuse consolidation along with cardiomegaly. Cannot rule out baseline vape induced lung injury. Low concerns for bacterial pneumonia for now. Continue to hold off on IV antibiotics. COVID-19/RSV, flu negative. Check MRSA swab, sputum culture. Concerns of congestive heart failure. Fluid restriction to less than 1500 cc. Strict input output charting, daily weights. IV Lasix 40 mg one-time. Empirically start on 40 mg oral prednisone for now. Patient does vape so cannot rule out vape induced lung injury versus reactive airway disease. Hypertension: Uncontrolled. Goal blood pressure less than 140/90 mmHg. Blood pressure elevated. For now start patient on Coreg 6.25 mg twice daily, amlodipine 10 mg oral daily. Depending on EF will plan to add Entresto versus ARB. IV labetalol 10 mg one-time. Followed by IV hydralazine 10 mg every 6 hours as needed for systolic of more than 160 mmHg. Elevated Troponin: Multifactorial. High concerns for in setting of congestive heart failure leading to type II SC versus non-ST elevation SC. Patient currently denies any difficulty in breathing. Check echocardiogram. Start on baby aspirin 81 mg daily. Check A1c, lipid panel. Further treatment as per echocardiogram. For now continue with heparin drip. Cardiology consulted. Tobacco and Vaping Use Disorder - Long-standing history of tobacco smoking since youth, transitioned to vaping when it became available. Ceased vaping a few weeks ago. Constipation - Chronic constipation, likely multifactorial with contribution from verapamil use. Plan: 1. Bowel regimen History of Carotid Pseudoaneurysms Status Post Stenting (2012) - Two pseudoaneurysms treated with stent placement. Unclear location however thinks these might have been in the carotids at [facility] after the patient suffered a syncopal episode. Baby aspirin as above. Carotid Doppler. Incidental Pulmonary Nodule - 1.37 cm indeterminate soft tissue nodule noted in the left lower lobe on CTA chest. Plan: 1. Recommend 6-month follow-up CT scan for stability assessment. Full code Cardiac diet, fluid restriction Protonix for PUD prophylaxis Heparin drip to be sufficient for DVT prophylaxis PDMP PDMP Reviewed: Not Reviewed Attestations 2 Medical Necessity Statement*: Requires further hospitalization for management of uncontrolled hypertension, shortness of breath with high concerns for congestive heart failure Diagnoses Dyspnea R06.00 Troponin level elevated R79.89 Elevated brain natriuretic peptide (BNP) level R79.89 Other congestive heart failure I50.9 Heart failure type: other Uncontrolled hypertension I10 Vapes nicotine containing substance Z72.0 CKD (chronic kidney disease) N18.9
--- NOTE | 2024-09-23 13:50 | USCV_ITS ---
Dagobertogabrielle Andry Age: 49 Gender: M : 1975 Exam Date: 09/23/2024 14:54 Ordering Phys: Bernardo Sherman MD Technologist: Exam Location: [facility] [place] Indication: hx of rt cca stent ? psuedo anuer of cca Risk Factors: Previous Vascular Surgery: Right Brachial BP: / Left Brachial BP: / Right Left Velocity (cm/s) Spectral Plaque Velocity (cm/s) Spectral Plaque Syst/Diast Broadening Syst/Diast Broadening 56.90/ 10.20 Prox CCA 68.40 / 18.40 62.10/ 12.80 Mid CCA 54.40 / 16.50 53.00/ 14.10 Distal CCA 47.00 / 16.50 42.20/ 13.00 Prox ICA 65.50 / 26.70 47.30/ 21.30 Mid ICA 45.10 / 23.00 50.00/ 21.90 Distal ICA 53.40 / 27.60 110.30 ECA 23.00 0.90 ICA/CCA 1.40 Antegrade Vertebral Antegrade 43.00/ 14.00 cm/s 39.50/ 23.00 cm/s Tri Subclavian Tri 38.70 FINDINGS Comparison: none available. No significant elevation of systolic or diastolic velocities. Waveforms are normal. Mild carotid atherosclerosis. No stent identified by US. CONCLUSIONS Bilateral ICA stenosis less than 50%. Dr. Kimberly Godoy DO (Electronically Signed) Final Date: 23 September 2024 15:45 S
[2024-09-23] MEDS: predniSONE 20 mg Tablet 40 MG PO (14:08)
[2024-09-23] MEDS: potassium chloride ER 20 mEq Tablet 40 MEQ PO (14:09)
[2024-09-23 15:54] LABS: MRSA PCR OZH (swab) NOT DETECTED (Negative)
[2024-09-23 17:05] LABS: Partial Thromboplastin Time 52.8 SECONDS (23.9-36.7)
[2024-09-23 17:13] LABS: Anion Gap 18.2 (5-19); Blood Urea Nitrogen 18 mg/dL (6-20); Calcium 9.2 mg/dL (8.5-10.5); Carbon Dioxide 24 mmol/L (22-29); Chloride 99 mmol/L (98-107); Glomerular Filtration Rate 58.4 mL/min (90-130); Glucose 112 mg/dL (65-115); Osmolality Calculated 287 mOsm/kg (285-295); Potassium 4.2 mmol/L (3.5-5.1); Sodium 137 mmol/L (136-145)
[2024-09-23 22:57] LABS: Add Urine Microscopic? NO
[2024-09-23 22:59] LABS: Bilirubin Urine Negative (Negative); Blood Urine Negative (Negative); Glucose Urine UA Negative (Normal); Ketones Urine Negative (Negative); Leukocyte Esterase Urine Negative (Negative); Nitrate Urine Negative (Negative); Protein Urine Negative (Negative); Specific Gravity, Urine 1.016 (1.005-1.030); Urine Appearance Clear (CLEAR); Urine Color Yellow (Yellow)
[2024-09-23 23:07] LABS: Charge for UA Resulting for Rev
[2024-09-24 00:58] LABS: Partial Thromboplastin Time 56.2 SECONDS (23.9-36.7)
[2024-09-24 04:00] VITALS: BP 144/101; PULSE 75; RESP 20; TEMP 36.6; O2SAT 96
[2024-09-24] MEDS: pantoprazole 40 mg SDV IVP ×2 (04:11→17:39)
[2024-09-24] MEDS: heparin drip 25,000 UNIT/500 ML PREMIX 30 UNIT IV (04:12)
[2024-09-24 05:56] VITALS: PULSE 98
[2024-09-24 06:00] VITALS: BMI 32.9
[2024-09-24 06:55] LABS: Basophils % 0.3 %; Eosinophils % 0.1 %; Hematocrit 44.6 % (37-53); Lymphocytes # 1.3 10^3/uL (0.8-4.8); Lymphocytes % 11.3 %; Mean Corpuscular Hemoglobin 28.8 pg (27-33); Mean Corpuscular Volume 87.3 fl (82-101); Mean Platelet Volume 10.4 fL (7.4-10.4); Monocytes # 0.8 10^3/uL (0.2-0.9); Nucleated Red Blood Cells % 0 %; Platelet Count 357 10^3/cmm (157-399); Red Blood Count 5.11 10^6/uL (3.85-5.65); Red Cell Distribution Width 12.9 % (12.1-15.1); White Blood Count 11.84 10^3/uL (3.29-11.43)
[2024-09-24] MEDS: diphenhydrAMINE 50 mg Capsule PO (07:02)
[2024-09-24 07:15] LABS: Alanine Aminotransferase 36 U/L (0-41); Albumin Level 3.6 g/dL (3.5-5.2); Alkaline Phosphatase 82 U/L (40-130); Anion Gap 16.3 (5-19); Aspartate Amino Transferase 26 U/L (0-40); Blood Urea Nitrogen 20 mg/dL (6-20); Calcium 8.9 mg/dL (8.5-10.5); Carbon Dioxide 23 mmol/L (22-29); Chloride 102 mmol/L (98-107); Creatinine Clr Calc Pharmacy 86.3575; Globulin 3.1 g/dL (1.3-4.6); Glomerular Filtration Rate 64.1 mL/min (90-130); Glucose 116 mg/dL (65-115); Magnesium 2.2 mg/dL (1.7-2.3); Osmolality Calculated 288 mOsm/kg (285-295); Potassium 4.3 mmol/L (3.5-5.1); Sodium 137 mmol/L (136-145); Total Protein 6.7 g/dL (6.6-8.7)
[2024-09-24 07:16] VITALS: BP 151/102; PULSE 90; RESP 16; TEMP 36.7; O2SAT 99
[2024-09-24 07:35] LABS: Folate Level 10.7 ng/mL (4.5-32.2)
[2024-09-24] MEDS: predniSONE 20 mg Tablet 40 MG PO (08:24)
[2024-09-24] MEDS: amlodipine 10 mg Tablet PO (08:24)
[2024-09-24] MEDS: aspirin 81 mg EC Tablet PO (08:24)
[2024-09-24] MEDS: carvedilol 6.25 mg Tablet PO ×2 (08:24→17:39)
--- NOTE | 2024-09-24 08:33 | XACV_ITS ---
Exam Room: 2 Ht: 175 cm Wt: 102 kg BSA: 2.26 m2 Gender: Male : 1975 Any Known Allergies: No known allergies Exam Priority: Routine Procedure(s): Procedure Description: Diagnostic procedure Procedure Description: Miscellaneous Procedure Description: Angio-Seal Procedure Description: Coronary Angiography Diagnostic Cath Status: Urgent Diagnostic Findings * INDICATION: NSTEMI/ LV dysfunction. * No significant disease noted in the Left Main, Left Anterior Descending, Right, or Circumflex coronary arteries. * Coronary angiography shows right dominance. Conclusions 1. No significant disease noted in the Left Main, Left Anterior Descending, Right, or Circumflex coronary arteries. Recommendations * Aggressive medical therapy for congestive heart failure. * Outpatient cardiology follow up in 2 weeks. Interventional RX Recommendation: medical therapy and/or counseling Diagnostic RX Recommendation: medical therapy and/or counseling Pressures Phase:Rest AO : 140 / 120 ( 131 ) @ 9:31:00 AM Clinical Evaluation EBL: 5mL-10mL Procedural Details Procedure Consent Obtained. Pre-Procedure Time Out. Identified patient by full name and date of as verbalized by the patient/guarantor. Does the consent match the physician's order: Yes. Accurate & Complete Informed Consent: Yes. Inpatient/Outpatient History & Physical on Chart: Yes. If H&P is completed, is and addenduem needed: No. Visualize and Verify Site with Patient/Guarantor: N/A. Relevant Radiology Images available: Yes. The risks, benefits, and alternatives of sedation and/or procedure were discussed by physician. The patient agrees to continue. Procedure started. [facility] Clinical Fraility Score: 4: Vulnerable. Finance Analyst Indications: LV Dysfunction/NSTEMI/elevated troponin. Chest Pain Symptom Assessment: Typical Angina Symptoms. Cardiovascular Instability: No. Correct patient, site and procedure confirmed by cath team. PERRLA. Strong, equal hand changer fixer bilaterally. Lungs clear x 5 lobes. IV Fluids: 0.9% NaCl at KVO. 0 mL infused prior to labor economics teacher. Pre Procedural Pulses: bilateral dorsalis pedis was 3+. Pre Procedural Pulses: bilateral posterior tibial was 3+. Pre Procedural Pulses: bilateral radial was 3+. Oxygen started at 2liters/min via nasal canula. right groin was prepped with chloroprep then draped in the usual sterile fashion. right radial was prepped with chloroprep then draped in the usual sterile fashion. Physician notified. IV Site on Arrival: 18 gauge in the right bicep. IV Site on Arrival: 20 gauge in the left shoulder. Baseline sample Acquired. HR: 104 BPM. Patient's family unavailable. Equipment: 6F - Femoral. Cardiac Cath Pack. ACIST Manifold Kit Model BT 2000. Heparinized Saline (2 units/mL), 1000 mL bag. Kit, Micropuncture. Physician arrived. Physician scrubbed in. Immediate Pre-Procedure Time Out. Correct Patient: Yes; Correct Procedure: Yes; Correct Site: Yes; Correct Patient Position: Yes; Correct Supplies: Yes; Dried Flammable Prep: Yes; Blood Products Available: N/A;. Lidocaine 1% infiltrated to the right groin. Arterial access obtained with micropuncture set. A 5 armenian JL4 catheter in over the standard J wire. Multiple views taken of left coronary artery. Catheter removed over the standard J wire. A 5 armenian JR4 catheter in over the standard J wire. Multiple views taken of right coronary artery. Catheter redirected to the LV, unable to cross valve. Catheter removed over the standard J wire. A Right femoral angiogram was performed to determine safe placement of closure device. Lidocaine 1% infiltrated to the right groin. A Angio-Seal VIP ([facility]) was successful obtaining hemostatsis at the Right Femoral artery insertion site. Angioseal placed without complications. No signs or symptoms of hematoma noted. Sterile dressing applied per usual sterile fashion. Lot # [id number]. Exp. . Post Procedure: Pulses reassessed and unchanged. PERRLA. Strong, equal hand changer fixer bilaterally. No VTE prophylaxis required. Medication's Wasted: Heparin = 1000 units. Medication's Wasted: Other = Versed 1 mg. Medication's Wasted: Other = Fentanyl 50 mcg. Total IV fluids: 30 mL. 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 Complications: none. Estimated blood loss: 5mL-10mL. Responsiveness - Normal response to verbal stimuli; alert and oriented, PERRLA. Airway - Unaffected, no intervention required; spontaneous ventilation. Circulation: W/N/L, pulses unchanged. Nausea/Vomiting: No. Procedure completed. Patient transferred by bed to 1st floor. Vital chart was stopped. Access Site Site: Right Femoral artery Sheath Size: 6 Fr Hemostasis Method: Angio-Seal VIP ([facility]) Hemostasis Success: Successful Procedure Medications Start: 9:20 AM Stop: 9:20 AM Medication: Versed Amount: 1 mg Route: I.V. Start: 9:20 AM Stop: 9:20 AM Medication: Fentanyl Amount: 50 mcg Route: I.V. Start: 9:31 AM Stop: 9:31 AM Medication: Hydralazine Amount: 10 mg Route: I.V. Start: 9:35 AM Stop: 9:35 AM Medication: Hydralazine Amount: 10 mg Route: I.V. I, the attending physician, have reviewed and verified all procedure medications. Yes, all medications given per verbal order History/Risk Factors Hypertension: Yes Dyslipidemia: No Peripheral Arterial Disease (PAD): No Myocardial Infarction (CA): No Obesity: No Renal Disease: No Tobacco Use: Current/Recent(w/in 1 year) Prior Interventions PCI: No CABG: No Valve Surgery: No Report Signatures Finalized by Robin Marley MD on 10/08/2024 11:08 AM
--- NOTE | 2024-09-24 09:20 | W.PM.OPSUD ---
Surgery/Procedure H&P Update DATE OF PROCEDURE: September 24, 2024 DATE H&P PERFORMED: 09/23/24 H&P UPDATE INFORMATION: I have reviewed H&P completed within last 30 days, I have examined patient prior to procedure and No changes to prior documentation PREOP DIAGNOSIS: NSTEMI/ LV dysfunction PRIMARY INDICATION FOR PROCEDURE: NSTEMI/ LV dysfunction PLANNED PROCEDURE: Left heart cath with possible percutaneous coronary intervention PATIENT REASSESSED PRIOR TO SEDATION, WITH NO CHANGE NOTED: Yes PHYSICAL EXAM: alert, oriented x 3, clear to auscultation bilaterally and regular rate & rhythm AIRWAY EVAL/ANESTHESIA PLAN: normal airway, ASA III, Local Anesthesia, Risks, benefits & alternatives of sedation and/or procedure discussed and Patient agrees to continue as planned ADDITIONAL INFORMATION: Moderate sedation
--- NOTE | 2024-09-24 09:41 | PM.PROC ---
Procedure Note: Date of procedure: 09/23/24 Pre-procedure diagnosis: NSTEMI/ LV dysfunction Post-procedure diagnosis: other (Non ischemic cardiomyopathy) Procedure: Left heart cath: Patent coronary arteries Non-ischemic cardiomyopathy Guideline directed heart failure management. Recommend lifevest Performing Provider: Robin Marley Estimated blood loss (mL): 5 Complications: None Condition: stable Disposition: floor Coding Level of Care Code Acute Code for [facility] Fwd
--- NOTE | 2024-09-24 09:43 | PM.PN ---
Subjective Subjective: Patient is doing well. No chest pain. Creatinine improved today. Coronary angiogram showed patent coronary arteries. Vitals/I&O/Wt Last Vital Signs Temp 98.0 F 09/24/24 07:16 Pulse 90 09/24/24 07:16 Resp 16 09/24/24 07:16 BP 151/102 09/24/24 07:16 Pulse Ox 99 09/24/24 07:16 O2 Del Method Room Air 09/24/24 07:16 09/23/24 09/24/24 09/24/24 22:59 06:59 14:59 Intake Total 311.8 / 1067.800 296.0 / 1363.800 103 / 103 Balance 311.8 / 1067.800 296.0 / 1363.800 103 / 103 Weight last 48 hrs Weight 223 lb 2 oz Weight 224 lb 14.4 oz Weight 232 lb 14.4 oz Weight 238 lb 1.6 oz Weight 220 lb Physical Exam Narrative: General: Alert and oriented x 3 Cardiovascular: Regular rate and rhythm Respiratory: Mild crackles bilaterally Extremities: No edema, cyanosis or clubbing Data 09/24/24 06:39 09/24/24 15:09 A&P Assessment and plan (1) Non-ST elevation [place] (NSTEMI): (2) HTN (hypertension): Qualifiers: Hypertension type: primary hypertension Qualified Code(s): I10 - Essential (primary) hypertension (3) CHF (congestive heart failure): Qualifiers: Heart failure type: other Qualified Code(s): I50.9 - Heart failure, unspecified (4) Troponin level elevated: Plan Coronary angiogram showed patent coronary arteries. Non-ischemic cardiomyopathy. Continue coreg. Once renal function is stable, will start entresto. Lifevest discussed. Low sodium diet Thank you for involving us with care of this patient. Please call with questions. PDMP PDMP Reviewed: Not Reviewed Attestations Medical Necessity Statement*: Care expected to cross 2 midnights. Coding Level of Care Code Acute Code for [facility] Fwd Diagnoses Non-ST elevation NJ (NSTEMI) I21.4 Primary hypertension I10 Hypertension type: primary hypertension Other congestive heart failure I50.9 Heart failure type: other Troponin level elevated R79.89
[2024-09-24 11:04] VITALS: BP 125/77; PULSE 91; RESP 20; TEMP 36.6; O2SAT 96
[2024-09-24] MEDS: FUROsemide 10 mg/mL SDV 4mL 40 MG IVP (11:05)
--- NOTE | 2024-09-24 13:46 | P.PN_ITS ---
Subjective 2 Subjective: No acute vents overnight. Seen postcardiac angiogram. Laying comfortably in bed. Has remained hemodynamically stable and afebrile. Currently on room air. Vitals/I&O/Wt Last Vital Signs Temp 97.8 F 09/24/24 11:04 Pulse 91 09/24/24 11:04 Resp 20 H 09/24/24 11:04 BP 125/77 09/24/24 11:04 Pulse Ox 96 09/24/24 11:04 O2 Del Method Room Air 09/24/24 11:04 09/23/24 09/24/24 09/24/24 22:59 06:59 14:59 Intake Total 311.8 / 1067.800 296.0 / 1363.800 463 / 463 Balance 311.8 / 1067.800 296.0 / 1363.800 463 / 463 Weight last 48 hrs Weight 101.208 kg Weight 102.013 kg Weight 105.642 kg Weight 108 kg Weight 99.79 kg Physical Exam 2 Narrative: - General: No acute distress - Cardiovascular: Regular rate and rhyth m, tachycardia, soft pansystolic murmur at apex, rubs or gallops - Respiratory: Bilateral lower zone fine crackles, otherwise bronchial breath sounds all over lung garcia - Abdomen: Soft, nontender, nondistended , no hepatosplenomegaly - Extremities: No edema, cyanosis or clu bbing - Neurological: Alert and oriented x3, n o focal deficits Data 09/24/24 06:39 09/24/24 06:39 A&P Assessment and plan (1) CHF (congestive heart failure): Qualifiers: Heart failure type: other Qualified Code(s): I50.9 - Heart failure, unspecified (2) Nonischemic cardiomyopathy: (3) Uncontrolled hypertension: (4) Dyspnea: (5) Troponin level elevated: (6) Vapes nicotine containing substance: (7) CKD (chronic kidney disease): Plan Shortness of Breath in setting of congestive heart failure: Echocardiogram done shows EF of 25 to 30% with biatrial enlargement, mild MR, mild AI and TR. Cardiac angiogram done on 09/24 concerning for patent coronaries. Concern for nonischemic cardiomyopathy. Concerns of congestive heart failure. Fluid restriction to less than 1500 cc. Strict input output charting, daily weights. IV Lasix 40 mg one-time. Will uptitrate guideline directed medical therapy within next 24 to 48 hours. If blood pressures remain stable we will plan to switch from amlodipine to Entresto. Patient will need LifeVest on discharge. Cardiology on board. For now continue with 40 mg oral prednisone. Patient does vape so cannot rule out vape induced lung injury versus reactive airway disease. Hypertension: Uncontrolled. Goal blood pressure less than 140/90 mmHg. Blood pressure better controlled. Continue with Coreg 6.25 mg twice daily, amlodipine 10 mg oral daily. Depending on EF will plan to add Entresto versus ARB. IV hydralazine 10 mg every 6 hours as needed for systolic of more than 160 mmHg. Elevated Troponin: Type II. Cardiac angiogram shows normal coronaries. Continue with baby aspirin 81 mg daily. Appreciate A1c, lipid panel. Stop heparin drip. Cardiology consulted. Tobacco and Vaping Use Disorder - Long-standing history of tobacco smoking since youth, transitioned to vaping when it became available. Ceased vaping a few weeks ago. Constipation - Chronic constipation, likely multifactorial with contribution from verapamil use. Plan: 1. Bowel regimen History of Carotid Pseudoaneurysms Status Post Stenting (2012) - Two pseudoaneurysms treated with stent placement. Unclear location however thinks these might have been in the carotids at [facility] after the patient suffered a syncopal episode. Baby aspirin as above. Appreciate normal carotid Doppler. Incidental Pulmonary Nodule - 1.37 cm indeterminate soft tissue nodule noted in the left lower lobe on CTA chest. Plan: 1. Recommend 6-month follow-up CT scan for stability assessment. Full code Cardiac diet, fluid restriction Protonix for PUD prophylaxis Heparin subcu 5000 Q12 hourly for DVT prophylaxis PDMP PDMP Reviewed: Not Reviewed Attestations 2 Medical Necessity Statement*: Requires further hospitalization for management of congestive heart failure in setting of nonischemic cardiomyopathy with EF of 25% while guideline directed medical therapy was uptitrated, LifeVest is arranged Diagnoses Other congestive heart failure I50.9 Heart failure type: other Nonischemic cardiomyopathy I42.8 Uncontrolled hypertension I10 Dyspnea R06.00 Troponin level elevated R79.89 Vapes nicotine containing substance Z72.0 CKD (chronic kidney disease) N18.9
[2024-09-24 15:34] LABS: Anion Gap 20.2 (5-19); Blood Urea Nitrogen 21 mg/dL (6-20); Calcium 9.6 mg/dL (8.5-10.5); Carbon Dioxide 24 mmol/L (22-29); Chloride 96 mmol/L (98-107); Creatinine Clr Calc Pharmacy 74.0207; Glomerular Filtration Rate 53.6 mL/min (90-130); Glucose 122 mg/dL (65-115); Osmolality Calculated 286 mOsm/kg (285-295); Potassium 4.2 mmol/L (3.5-5.1); Sodium 136 mmol/L (136-145)
[2024-09-24 19:29] VITALS: BP 116/72; PULSE 92; RESP 15; TEMP 36.4; O2SAT 96
[2024-09-24 21:43] VITALS: PULSE 91
[2024-09-25] VITALS (7 sets, daily range): BP systolic 130–177; BP diastolic 79–108; PULSE 90–109; RESP 12–32; TEMP 36.1–36.8; O2SAT 95–100
[2024-09-25 04:24] LABS: Basophils # 0.1 10^3/uL (0.0-0.1); Basophils % 0.4 %; Eosinophils # 0.1 10^3/uL (0.0-0.8); Eosinophils % 0.3 %; Hematocrit 44.6 % (37-53); Lymphocytes # 2.2 10^3/uL (0.8-4.8); Lymphocytes % 15.1 %; Mean Corpuscular Hemoglobin 29.2 pg (27-33); Mean Corpuscular Volume 88.7 fl (82-101); Mean Platelet Volume 10.3 fL (7.4-10.4); Monocytes # 1.2 10^3/uL (0.2-0.9); Monocytes % 8.2 %; Neutrophils # 10.82 10^3/uL (1.8-7.7); Neutrophils % 75.5 %; Nucleated Red Blood Cells % 0 %; Platelet Count 391 10^3/cmm (157-399); Red Blood Count 5.03 10^6/uL (3.85-5.65); Red Cell Distribution Width 13.3 % (12.1-15.1); White Blood Count 14.34 10^3/uL (3.29-11.43)
[2024-09-25 04:45] LABS: Alanine Aminotransferase 29 U/L (0-41); Albumin Level 3.4 g/dL (3.5-5.2); Alkaline Phosphatase 79 U/L (40-130); Anion Gap 16.9 (5-19); Aspartate Amino Transferase 15 U/L (0-40); Blood Urea Nitrogen 26 mg/dL (6-20); Calcium 8.8 mg/dL (8.5-10.5); Carbon Dioxide 23 mmol/L (22-29); Chloride 102 mmol/L (98-107); Creatinine Clr Calc Pharmacy 79.7146; Globulin 3.3 g/dL (1.3-4.6); Glomerular Filtration Rate 58.4 mL/min (90-130); Glucose 143 mg/dL (65-115); Osmolality Calculated 293 mOsm/kg (285-295); Potassium 3.9 mmol/L (3.5-5.1); Sodium 138 mmol/L (136-145); Total Bilirubin 0.7 mg/dL (0.15-1.2); Total Protein 6.7 g/dL (6.6-8.7)
[2024-09-25 04:51] LABS: Magnesium 2.2 mg/dL (1.7-2.3)
[2024-09-25] MEDS: pantoprazole 40 mg SDV IVP ×2 (05:35→17:09)
[2024-09-25] MEDS: carvedilol 6.25 mg Tablet PO ×2 (08:44→17:09)
[2024-09-25] MEDS: amlodipine 10 mg Tablet PO (08:44)
[2024-09-25] MEDS: predniSONE 20 mg Tablet 40 MG PO (08:44)
[2024-09-25] MEDS: hyDRALAzine 20 mg/mL INJ 1 mL 10 MG IVP (08:44)
[2024-09-25] MEDS: aspirin 81 mg EC Tablet PO (08:44)
--- NOTE | 2024-09-25 09:57 | P.PN_ITS ---
<Statement entered by Robin Marley M.D - 09/26/24 08:13> Patient was cared for in conjunction with an advanced practice practitioner.? I personally reviewed the chart and all pertinent data including imaging, telemetry, and laboratory results.? I discussed the patient in detail with the advanced practice practitioner.? Please see? their note for complete progress note, testing results and agreed upon plan of care for the patient. Subjective 2 Subjective: Patient doing well today. He denies any chest pain or shortness of breath. Main complaint is rib pain. He states he has a history of rib popping in and out of place. He states he usually goes to chiropractor to get this fixed. Blood pressure has been elevated at 177/108. Creatinine stable at 1.3. He was found to have nonischemic cardiomyopathy on yesterday's left heart cath. Cath site looks good in right groin. Vitals/I&O/Wt Last Vital Signs Temp 98.2 F 09/25/24 07:19 Pulse 98 09/25/24 07:19 Resp 32 H 09/25/24 07:19 BP 177/108 09/25/24 07:19 Pulse Ox 99 09/25/24 07:19 O2 Del Method Room Air 09/25/24 07:19 09/24/24 09/25/24 09/25/24 22:59 06:59 14:59 Intake Total 780 / 1243 200 / 1443 480 / 480 Output Total 0 / 0 500 / 500 Balance 780 / 1243 -300 / 943 480 / 480 Weight last 48 hrs Weight 226 lb 11.2 oz Weight 223 lb 2 oz Weight 224 lb 14.4 oz Physical Exam 2 Narrative: General: No apparent distress, healthy appearing, well nourished HENMT: normoceophalic Muskuloskeletal: Full ROM Lymphatic: no lymphedema noted Respiratory: Normal respiratory effort, clear to auscultation bilaterally throughout all lung garcia, no use of accessory muscles Cardio: No JVD, regular rate, regular rhythm, S1 S2 normal, no murmurs, peripheral pulses 2+ radial palpated bilaterally GI: Normal to inspection, nondistended Extremities: Full ROM, normal, normal capillary refill, no cyanosis or edema Neuro: Alert and oriented x4, no focal motor deficits Psych: Affect normal, denies suicidal ideation, mental status grossly normal Skin: Right femoral stick site clean dry intact no signs of hematoma no bruising present no tenderness on palpation, right wrist with what patient states is a chronic cyst Data 09/25/24 04:00 09/25/24 04:00 A&P Assessment and plan (1) Non-ST elevation PA (NSTEMI): (2) HTN (hypertension): Qualifiers: Hypertension type: primary hypertension Qualified Code(s): I10 - Essential (primary) hypertension (3) CHF (congestive heart failure): Qualifiers: Heart failure type: other Qualified Code(s): I50.9 - Heart failure, unspecified (4) Troponin level elevated: Plan Patient's ejection fraction was 25 to 30%. I did discuss the LifeVest with him. This has been ordered by Dr. Marley. He has agreed to wear it. At this time we will continue amlodipine at 10 carvedilol 6.25 twice daily and add losartan 50 mg as patient's blood pressure is elevated. May start Entresto on an outpatient basis if creatinine allows. From a cardiology standpoint, patient may be discharged home once life vest is in place and follow-up with us in 7 to 10 days. PDMP PDMP Reviewed: Not Reviewed Attestations 2 Medical Necessity Statement*: Patient may be discharged from a cardiology standpoint once life vest is in place. Coding Level of Care Code Acute Code for [facility] Fwd Diagnoses Non-ST elevation PA (NSTEMI) I21.4 Primary hypertension I10 Hypertension type: primary hypertension Other congestive heart failure I50.9 Heart failure type: other Troponin level elevated R79.89
[2024-09-25] MEDS: losartan 50 mg Tablet PO (11:10)
--- NOTE | 2024-09-25 12:39 | P.PN_ITS ---
Subjective 2 Subjective: No acute vents overnight. Patient has remained hemodynamically stable and afebrile. Lying comfortably in bed. Saturating well on room air. Blood pressure slightly elevated again. Vitals/I&O/Wt Last Vital Signs Temp 97.9 F 09/25/24 12:00 Pulse 93 09/25/24 12:00 Resp 18 09/25/24 12:00 BP 134/93 09/25/24 12:00 Pulse Ox 99 09/25/24 12:00 O2 Del Method Room Air 09/25/24 12:00 09/24/24 09/25/24 09/25/24 22:59 06:59 14:59 Intake Total 780 / 1243 200 / 1443 480 / 480 Output Total 0 / 0 500 / 500 800 / 800 Balance 780 / 1243 -300 / 943 -320 / -320 Weight last 48 hrs Weight 102.829 kg Weight 101.208 kg Weight 102.013 kg Physical Exam 2 Narrative: - General: No acute distress - Cardiovascular: Regular rate and rhyth m, tachycardia, soft pansystolic murmur at apex, rubs or gallops - Respiratory: Bilateral lower zone fine crackles, otherwise bronchial breath sounds all over lung garcia - Abdomen: Soft, nontender, nondistended , no hepatosplenomegaly - Extremities: No edema, cyanosis or clu bbing - Neurological: Alert and oriented x3, n o focal deficits Data 09/25/24 04:00 09/25/24 04:00 A&P Assessment and plan (1) CHF (congestive heart failure): Qualifiers: Heart failure type: other Qualified Code(s): I50.9 - Heart failure, unspecified (2) Nonischemic cardiomyopathy: (3) Uncontrolled hypertension: (4) Dyspnea: (5) Troponin level elevated: (6) Vapes nicotine containing substance: (7) CKD (chronic kidney disease): Plan Shortness of Breath in setting of congestive heart failure: Echocardiogram done shows EF of 25 to 30% with biatrial enlargement, mild MR, mild AI and TR. Cardiac angiogram done on 09/24 concerning for patent coronaries. Concern for nonischemic cardiomyopathy. Concerns of congestive heart failure. Fluid restriction to less than 1500 cc. Strict input output charting, daily weights. IV Lasix 40 mg one-time. Will uptitrate guideline directed medical therapy within next 24 to 48 hours. If blood pressures remain stable we will plan to switch from amlodipine to Entresto. Patient will need LifeVest on discharge. Cardiology on board. For now continue with 40 mg oral prednisone. Patient does vape so cannot rule out vape induced lung injury versus reactive airway disease. Hypertension: Uncontrolled. Goal blood pressure less than 140/90 mmHg. Blood pressure better controlled. Continue with Coreg 6.25 mg twice daily, amlodipine 10 mg oral daily. Depending on EF will plan to add Entresto versus ARB. IV hydralazine 10 mg every 6 hours as needed for systolic of more than 160 mmHg. Elevated Troponin: Type II. Cardiac angiogram shows normal coronaries. Continue with baby aspirin 81 mg daily. Appreciate A1c, lipid panel. Stop heparin drip. Cardiology consulted. Tobacco and Vaping Use Disorder - Long-standing history of tobacco smoking since youth, transitioned to vaping when it became available. Ceased vaping a few weeks ago. Constipation - Chronic constipation, likely multifactorial with contribution from verapamil use. Plan: 1. Bowel regimen History of Carotid Pseudoaneurysms Status Post Stenting (2012) - Two pseudoaneurysms treated with stent placement. Unclear location however thinks these might have been in the carotids at [facility] after the patient suffered a syncopal episode. Baby aspirin as above. Appreciate normal carotid Doppler. Incidental Pulmonary Nodule - 1.37 cm indeterminate soft tissue nodule noted in the left lower lobe on CTA chest. Plan: 1. Recommend 6-month follow-up CT scan for stability assessment. Plan for the day: Goal blood pressure less than 140/90 mmhg. Add losartan 50 mg oral daily. Depending on the blood pressures we will hold off on amlodipine and increase the dose of losartan accordingly. Monitor renal function daily. Ambulate. Fluid restriction to less than 1500 cc, hold lasix for today. Will transition to oral lasix in next 24 hrs. LifeVest being arranged by cardiology. Full code Cardiac diet, fluid restriction Protonix for PUD prophylaxis Heparin subcu 5000 Q12 hourly for DVT prophylaxis PDMP PDMP Reviewed: Not Reviewed Attestations 2 Medical Necessity Statement*: Requires further hospitalization for management of congestive heart failure in setting of nonischemic cardiomyopathy while LifeVest is arranged and guideline medical therapy is uptitrated Diagnoses Other congestive heart failure I50.9 Heart failure type: other Nonischemic cardiomyopathy I42.8 Uncontrolled hypertension I10 Dyspnea R06.00 Troponin level elevated R79.89 Vapes nicotine containing substance Z72.0 CKD (chronic kidney disease) N18.9
[2024-09-25] MEDS: acetaminophen 325 mg Tablet 650 MG PO (22:16)
[2024-09-25] MEDS: lactulose oral liq 20 gm/30 mL UDC PO (23:03)
--- NOTE | 2024-09-25 23:42 | PC.NURSE ---
After shift change and report was given this nurse went to patient room to assess patient. Patient stated look at my timer, I have been unhooked from monitor for an hour Patient was asked why he was off monitor and he stated I unhooked myself to see how long it would take for them to hook me back up Patient was educated on importance to not unhook himself from his telemetry and to notify nurse per call light, if he needs to needs to get up and go to bathroom, patient verbalized understanding.
--- NOTE | 2024-09-25 23:59 | PC.NURSE ---
Upon entering patient room, patient was very agitated and stated with a raised voice I just want to get the fuck out of this place and go home. I do not want to stay in here. You guys are not giving me the care I need, and I want to get the fuck away. He continued on to tell me that he has no where to go when he gets out of hospital and that he was worried about how much the new medication was going to cost him because he has no money. This nurse sat down with patient and talked calmly with him asking him to please calm down so we could discuss the issues he was stating. Patient was given the community resources packet and educated on the new medication that was started. Patient was calm and resting in bed with eyes closed and call light in reach.
[2024-09-26] VITALS: BP 149/104; PULSE 93; RESP 18; TEMP 36.4; O2SAT 98
--- NOTE | 2024-09-26 01:15 | PC.NURSE ---
patient stated that he hasn't had a BM since he has beeen here and would like something to help him. Dr Garza notified and new order placed.
--- NOTE | 2024-09-26 01:17 | PC.NURSE ---
Addendum entered by Landy Yeh RN 09/26/24 05:36: To note at 03:57 Explained to patient that telemetry was not discontinued. Addendum entered by Landy Yeh RN 09/26/24 04:19: Patient placed on portable telemetry device. Addendum entered by Landy Yeh RN 09/26/24 03:57: [id number] Patient unplugged telemetry, this nurse went to patient room to assess situation. Patient was up brushing teeth, I asked why he had unplugged himself from telemetry he stated he thought that it was discontinued and had taken leads off. Patient was again educated on the importance of telemetry and asked again not to unplug nor remove leads. Patient verbalized understanding again. Addendum entered by aLndy Yeh RN 09/26/24 02:30: 0133 Patient resting in bed with eyes closed. Table and call light in reach. 0226 Patient resting in bed with eyes closed. Table and call light in reach. Original Note: Nurse rounding 20:39 PATIENT WAS CALM AND RESTING IN BED WITH EYES CLOSED WITH CALL LIGHT AND TABLE WITHIN REACH. 23:24 PATIENT RESTING IN BED WITH EYES CLOSED. TABLE AND CALL LIGHT IN REACH. 00:42 PATIENT RESTING IN BED WITH EYES CLOSED. TABLE AND CALL LIGHT IN REACH.
[2024-09-26 03:13] LABS: Basophils # 0.1 10^3/uL (0.0-0.1); Basophils % 0.3 %; Eosinophils % 0.1 %; Hematocrit 48.2 % (37-53); Lymphocytes # 1.8 10^3/uL (0.8-4.8); Lymphocytes % 11.9 %; Mean Corpuscular HGB Conc 32.4 g/dL (30-55); Mean Corpuscular Hemoglobin 29.1 pg (27-33); Mean Corpuscular Volume 89.8 fl (82-101); Mean Platelet Volume 10.7 fL (7.4-10.4); Monocytes # 1.1 10^3/uL (0.2-0.9); Monocytes % 7.4 %; Neutrophils # 12.08 10^3/uL (1.8-7.7); Nucleated Red Blood Cells % 0 %; Platelet Count 364 10^3/cmm (157-399); Red Blood Count 5.37 10^6/uL (3.85-5.65); Red Cell Distribution Width 13.2 % (12.1-15.1)
[2024-09-26 03:43] LABS: Alanine Aminotransferase 29 U/L (0-41); Albumin Level 3.5 g/dL (3.5-5.2); Alkaline Phosphatase 80 U/L (40-130); Anion Gap 18.1 (5-19); Aspartate Amino Transferase 20 U/L (0-40); Blood Urea Nitrogen 26 mg/dL (6-20); Calcium 9.2 mg/dL (8.5-10.5); Carbon Dioxide 22 mmol/L (22-29); Chloride 100 mmol/L (98-107); Creatinine Clr Calc Pharmacy 87.0329; Globulin 3.7 g/dL (1.3-4.6); Glomerular Filtration Rate 64.1 mL/min (90-130); Glucose 107 mg/dL (65-115); Osmolality Calculated 287 mOsm/kg (285-295); Potassium 4.1 mmol/L (3.5-5.1); Sodium 136 mmol/L (136-145); Total Bilirubin 0.9 mg/dL (0.15-1.2); Total Protein 7.2 g/dL (6.6-8.7)
[2024-09-26 03:45] LABS: Magnesium 2.2 mg/dL (1.7-2.3)
[2024-09-26 04:00] VITALS: BP 150/105; PULSE 98; RESP 19; O2SAT 98
[2024-09-26] MEDS: pantoprazole 40 mg SDV IVP (05:30)
--- NOTE | 2024-09-26 05:37 | PC.NURSE ---
Patient is fully dressed and packed waiting for doctor. IV is still intact and telemetry still on patient.
[2024-09-26 06:00] VITALS: PULSE 97
[2024-09-26 08:00] VITALS: BP 162/108; PULSE 104; TEMP 36.6
[2024-09-26 08:53] VITALS: BP 153/96
--- NOTE | 2024-09-26 09:44 | P.DS_ITS ---
Discharge Providers Date of Admission: 09/22/24 16:41 Date of Discharge: September 26, 2024 Attending Provider at Admission: Bianca Washington Attending Provider at Discharge: Bernardo Sherman MD Consults: Cardiology: Dr. aMrley Diagnoses at Discharge Discharge Diagnosis (1) CHF (congestive heart failure): Status: Acute Qualifiers: Heart failure type: other Qualified Code(s): I50.9 - Heart failure, unspecified (2) Nonischemic cardiomyopathy: Status: Acute (3) Uncontrolled hypertension: Status: Acute (4) Dyspnea: Status: Acute (5) Troponin level elevated: Status: Acute (6) Vapes nicotine containing substance: Status: Acute (7) CKD (chronic kidney disease): Status: Chronic Reason for Visit Reason for Visit: heart issues/supposed to be admitted? Brief History: History as per HPI: 49-year-old male with a past medical his tory significant for hypertension, tobacco and vaping use who presented to the hospital with shortness of breath for the past few months, progressively getting worse. The shortness of breath increases when laying down sleeping. He denies chest discomfort, fever, chills, nausea, vomiting, and is not coughing up anything for the most part. He has smoked since he was younger and started vaping daily up until one week ago. The patient was seen in the ER on 09/18/2024 during which time he had been complaining of 2 weeks of shortness of breath. Workup in the ER on 09/18/2024 included a chest x-ray which showed patchy alveolar airspace disease in both lower lobes suspicious for pneumonia. He was discharged on cefdinir 300 mg twice daily and Ventolin inhaler. He returned earlier today to the ER with similar complaints. Chest x-ray was repeated earlier today which showed interval increase in patchy opacities in the right lower, middle and inferior lower lobes. Dense retrocardiac opacity was seen. Additionally, he was noted to have cardiomegaly and a tortuous calcified aorta. CTA of chest showed a posterior bilateral pleural effusion, most marked on the right, and diffuse interstitial infiltrates bilaterally suggestive of infection versus edema. Incidentally, a 1.37 cm indeterminate soft tissue nodule was noted in the left lower lobe, for which a 6 month follow-up CT scan was recommended. The patient denies abdominal pain or diarrhea. He notes constipation, which he attributes to sitting on the toilet for two hours waiting. He denies swelling in his legs, lightheadedness, dizziness, or falling anywhere. 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 He can not recall all interventions however stated he had two stents were placed in his carotid artery. This occurred after he passed out and in his driveway in [place]. He was treated at [facility]. He is not clear if they were carotid stents or vertebral. After the procedure, he was placed on baby aspirin but has not followed up since. He denies any other hospitalizations. Initial evaluation in the ER revealed: - Laboratory Findings: WBC 11, hemoglobi n 13, hematocrit 40, platelets 357, D- dimer 2.18, sodium 136, potassium 4.7, chloride 99, bicarb 23, BUN 18, creatinin e 1.3 (prior 1.4 on 09/18/2024), glucose 141, proBNP 2827, troponin T baseline 183 with repeat of 201 in 120 minutes (delta 18.5), CRP 4.5. - Imaging Studies: Chest x-ray with inte rval increase in patchy opacities in right lower, middle and inferior lower lobes, dense retrocardiac opacity, cardiomegaly and tortuous calcified aorta. CTA chest with posterior bilateral pleural effusions, most marked on the right, diffuse interstitial infiltrates bilaterally suggestive of infection versus edema, and incidental 1.37 cm indeterminate soft tissue nodule in the left lower lobe. He remains hemodynamically stable. Hospital Course Hospital Course Patient was admitted to the hospital further evaluation and management of hypoxia with shortness of breath in setting of possible congestive heart failure. On admission he was found to have elevated troponin for which he was started on heparin drip and echocardiogram was done. Cardiology was consulted. There was concern for mild pneumonia on admission which was ruled out with chest imaging. Respiratory viral panel during examination remained negative. Echocardiogram was done which was concerning for EF of 25 to 30% with global LV hypokinesia, mild MR with dilated IVC. Was continued on IV diuresis. He underwent cardiac angiogram which ruled out ischemic cardiopathy with patent coronaries. Medications were uptitrated as per guidelines directed medical therapy for congestive heart failure. LifeVest has been arranged for the patient. During hospitalization he was found to have elevated blood pressures for which his antihypertensives have been adjusted. He has been discharged in hemodynamically stable condition on oral diuretics, counseling of lifestyle modification with congestive heart failure and fluid restrictions. He is to follow-up with his PCP and has [facility] within next 2 weeks. Physical Exam Narrative: - General: No acute distress - Cardiovascular: Regular rate and rhyth m, tachycardia, soft pansystolic murmur at apex, rubs or gallops - Respiratory: Bilateral lower zone fine crackles, otherwise bronchial breath sounds all over lung garcia - Abdomen: Soft, nontender, nondistended , no hepatosplenomegaly - Extremities: No edema, cyanosis or clu bbing - Neurological: Alert and oriented x3, n o focal deficits Discharge Data Studies Completed and Pending Completed Studies During Hospitalization Category Date Time Status CV carotid duplex BI* [id number] Routine Ultrasound 09/23/24 13:50 Completed CV. echo complete* [id number] Routine Ultrasound 09/23/24 09:02 Completed Pending at discharge Category Date Time Status NUCLEAR MEDICINE OFFICER request for service Routine Exams 09/24/24 08:33 Taken Sputum Culture and Gram Stain Stat Lab 09/23/24 09:05 Uncollected Laboratory Results WBC 15.10 10^3/uL (3.29-11.43) H 09/26/24 02:38 RBC 5.37 10^6/uL (3.85-5.65) 09/26/24 02:38 Hgb 15.60 g/dL (11.27-16.99) 09/26/24 02:38 Hct 48.2 % (37-53) 09/26/24 02:38 MCV 89.8 fl (82-101) 09/26/24 02:38 MCH 29.1 pg (27-33) 09/26/24 02:38 MCHC 32.4 g/dL (30-55) 09/26/24 02:38 RDW 13.2 % (12.1-15.1) 09/26/24 02:38 Plt Count 364 10^3/cmm (157-399) 09/26/24 02:38 MPV 10.7 fL (7.4-10.4) H 09/26/24 02:38 Neut % (Auto) 80.0 % 09/26/24 02:38 Lymph % (Auto) 11.9 % 09/26/24 02:38 [place] % (Auto) 7.4 % 09/26/24 02:38 Eos % (Auto) 0.1 % 09/26/24 02:38 Baso % (Auto) 0.3 % 09/26/24 02:38 Neut # (Auto) 12.08 10^3/uL (1.8-7.7) H 09/26/24 02:38 Lymph # (Auto) 1.8 10^3/uL (0.8-4.8) 09/26/24 02:38 [place] # (Auto) 1.1 10^3/uL (0.2-0.9) H 09/26/24 02:38 Eos # (Auto) 0.0 10^3/uL (0.0-0.8) 09/26/24 02:38 Baso # (Auto) 0.1 10^3/uL (0.0-0.1) 09/26/24 02:38 Nucleated RBC % (auto) 0 % 09/26/24 02:38 Nucleated RBCs # 0.0 /100WBC 09/26/24 02:38 APTT 43.0 SECONDS (23.9-36.7) H 09/24/24 06:39 Sodium 136 mmol/L (136-145) 09/26/24 02:38 Potassium 4.1 mmol/L (3.5-5.1) 09/26/24 02:38 Chloride 100 mmol/L (98-107) 09/26/24 02:38 Carbon Dioxide 22 mmol/L (22-29) 09/26/24 02:38 Anion Gap 18.1 (5-19) 09/26/24 02:38 BUN 26 mg/dL (6-20) H 09/26/24 02:38 Creatinine 1.2 mg/dL (0.7-1.2) 09/26/24 02:38 GFR Calculation 64.1 mL/min (90-130) L 09/26/24 02:38 Glucose 107 mg/dL (65-115) 09/26/24 02:38 Estimat Average Glucose 105 09/23/24 02:41 Hemoglobin A1c 5.3 % (4.0-6.0) 09/23/24 02:41 Calculated Osmolality 287 mOsm/kg (285-295) 09/26/24 02:38 Calcium 9.2 mg/dL (8.5-10.5) 09/26/24 02:38 Magnesium 2.2 mg/dL (1.7-2.3) 09/26/24 02:38 Iron 41 ug/dL (59-158) L 09/23/24 02:41 TIBC 295 mcg/dl 09/23/24 02:41 % Saturation 13.8 % (20-50) L 09/23/24 02:41 Unsat Iron Binding 254 ug/dL (112-347) 09/23/24 02:41 Total Bilirubin 0.9 mg/dL (0.15-1.2) 09/26/24 02:38 AST 20 U/L (0-40) 09/26/24 02:38 ALT 29 U/L (0-41) 09/26/24 02:38 Alkaline Phosphatase 80 U/L (40-130) 09/26/24 02:38 Troponin T Baseline 172 ng/L (0-15) H* 09/22/24 17:10 Troponin T 120 Minute 195.9 ng/L (0-15) H 09/22/24 21:47 Delta Troponin T 23.9 ABS# (0-10) H* 09/22/24 21:47 Troponin T Hi Sens 6Hr 202.3 ng/L (0-15) H 09/23/24 01:34 Troponin T Hi Sens 6Hr Delta 30.3 ng/L (0-12) H* 09/23/24 01:34 Total Protein 7.2 g/dL (6.6-8.7) 09/26/24 02:38 Albumin 3.5 g/dL (3.5-5.2) 09/26/24 02:38 Globulin 3.7 g/dL (1.3-4.6) 09/26/24 02:38 Triglycerides 110 mg/dL (0-150) 09/23/24 02:41 Cholesterol 123 mg/dL (0-200) 09/23/24 02:41 LDL Cholesterol, Calc 54 mg/dL (50-129) 09/23/24 02:41 HDL Cholesterol 47 mg/dL (60-100) L 09/23/24 02:41 LDL/HDL Ratio 1.15 RATIO (0.00-3.22) 09/23/24 02:41 Cholesterol/HDL Ratio 2.62 mg/dL (1.0-5.00) 09/23/24 02:41 Folate 10.7 ng/mL (4.5-32.2) 09/24/24 06:39 Procalcitonin 0.11 ng/mL (0-0.5) 09/22/24 17:10 TSH 3.32 uIU/mL (0.27-4.20) 09/23/24 02:41 Urine Color Yellow (Yellow) 09/23/24 22:50 Urine Appearance Clear (CLEAR) 09/23/24 22:50 Urine pH 8.0 (5-7) A 09/23/24 22:50 Ur Specific Sherman 1.016 (1.005-1.030) 09/23/24 22:50 Urine Protein Negative (Negative) 09/23/24 22:50 Urine Glucose (UA) Negative (Normal) 09/23/24 22:50 Urine Ketones Negative (Negative) 09/23/24 22:50 Urine Blood Negative (Negative) 09/23/24 22:50 Urine Nitrate Negative (Negative) 09/23/24 22:50 Urine Bilirubin Negative (Negative) 09/23/24 22:50 Urine Urobilinogen 1.0 mg/dL (Negative) 09/23/24 22:50 Ur Leukocyte Esterase Negative (Negative) 09/23/24 22:50 Amorphous Sediment Not Reportable 09/23/24 22:50 Nasal MRSA (PCR) Not detected (Negative) 09/23/24 14:06 Vitals Last Vital Signs Temp 97.8 F 09/26/24 08:00 Pulse 104 H 09/26/24 08:00 Resp 19 H 09/26/24 04:00 BP 153/96 09/26/24 08:53 Pulse Ox 98 09/26/24 04:00 O2 Del Method Room Air 09/26/24 04:00 Discharge Plan Discharge Patient Disposition: Home Condition: Stable Prescriptions: New losartan 50 mg Tablet 100 mg PO DAILY Qty: 60 0RF carvedilol 6.25 mg Tablet 6.25 mg PO BID Qty: 60 0RF prednisone 20 mg Tablet 40 mg PO DAILY Qty: 6 0RF Continued furosemide [Lasix] 20 mg tablet 20 mg PO DAILY Qty: 7 0RF albuterol sulfate [Ventolin HFA] 90 mcg/actuation HFA aerosol inhaler 2 inh inhalation Q6H PRN (Reason: shortness of breath or wheezing) Qty: 6.7 0RF Discontinued azithromycin [Zithromax Z-Julien] 250 mg tablet See Rx Instructions .ROUTE .COMPLEX Qty: 6 0RF Rx Instructions: For 250 mg dose pack: take 500 mg today (day 1), then 250 mg for 4 days (days 2-5) cefdinir 300 mg capsule 300 mg PO BID 10 Days Qty: 20 0RF verapamil 240 mg Tablet Extended Release 240 mg PO BEDTIME Discharge Orders: Discharge Order (Routine); Ordered 09/26/24 Ordered By: Bernardo Sherman Referrals: Keturah Garrison NP [Nurse Practitioner] - 10/09/24 3:35 pm Hayley Jiménez MD [Referring] - (Please call [phone] on Sunday to establish PCP) Discharge Diet: Cardiac Discharge Activity: Resume usual activity and Increase activity as tolerated Patient Instructions: Prednisone (By mouth), Losartan (By mouth), Carvedilol (By mouth), Congestive Heart Failure, Hypertension, Heart Healthy Diet (DC), DASH Eating Plan (DC), CHF Stoplight, Opioid Safety, Post Angiogram Home Care Instructions Activity Restrictions/Additional Instructions: Restrict fluid intake to less than 1500 cc, salt intake to less than 2 g daily. Advised to check his weight daily at home. Is advised that weight today would be the dry weight and if body weight increases by around 5 pounds, patient is to take an extra dose of Lasix daily till body weight comes down to weight today. If not able to come down to dry body weight in 1 week, then is to call cardiology office for further recommendations. Patient was counseled in detail to take medications regularly as prescribed. Please follow-up with your primary care provider and cardiology office in the next 1 week. Check your blood pressure daily at home maintain a blood pressure diary. Goal blood pressures less than 140/90 mmHg. Please take your blood pressure diary and following up with your providers. No Lifting of more than 10 lbs in 5 days. Discharge Attestations Time Spent in Discharge Care*: greater than 30 min Specific Discharge Activities: educating patient, discussing with pcp/other providers, discussing with correctional counselor/case manager/social workers/dc planners, documenting/other paperwork and evaluating patient/reviewing data Status at Discharge: Cognitive status at discharge: cognitively intact , Behavioral status at discharge: cooperative , Functional status at discharge: independent ambulation , Overall status at discharge: patient is back to baseline Quality Metrics Clinical Quality Measures [ No reported AMI, CVA or VTE this stay] Coding Level of Care Code 74102 Total time (in minutes) for Discharge: 70 Diagnoses Other congestive heart failure I50.9 Heart failure type: other Nonischemic cardiomyopathy I42.8 Uncontrolled hypertension I10 Dyspnea R06.00 Troponin level elevated R79.89 Vapes nicotine containing substance Z72.0 CKD (chronic kidney disease) N18.9
[2024-09-26] MEDS: aspirin 81 mg EC Tablet PO (09:50)
[2024-09-26] MEDS: losartan 50 mg Tablet 100 MG PO (09:50)
[2024-09-26] MEDS: carvedilol 6.25 mg Tablet PO (09:50)
[2024-09-26] MEDS: predniSONE 20 mg Tablet 40 MG PO (09:50)
--- NOTE | 2024-09-26 09:59 | P.PN_ITS ---
<Statement entered by Robin Marley M.D - 09/26/24 21:44> Patient was cared for in conjunction with an advanced practice practitioner. I personally reviewed the chart and all pertinent data including imaging, telemetry, and laboratory results. I discussed the patient in detail with the advanced practice practitioner. Please see their note for complete progress note, results and agreed upon plan of care for the patient. Subjective 2 Subjective: Patient without any complaints of chest pain or shortness of breath/orthopnea. Blood pressure still slightly elevated. Medication adjustments have been made. LifeVest was fitted this morning. Vitals/I&O/Wt Last Vital Signs Temp 97.8 F 09/26/24 08:00 Pulse 104 H 09/26/24 08:00 Resp 19 H 09/26/24 04:00 BP 153/96 09/26/24 08:53 Pulse Ox 98 09/26/24 04:00 O2 Del Method Room Air 09/26/24 04:00 09/25/24 09/26/24 09/26/24 22:59 06:59 14:59 Intake Total 1080 / 1920 0 / 1920 360 / 360 Output Total 2500 / 3300 Balance -1420 / -1380 0 / -1380 360 / 360 Weight last 48 hrs Weight 229 lb 4.8 oz Weight 226 lb 11.2 oz Physical Exam 2 Narrative: General: No apparent distress, healthy appearing, well nourished HENMT: normoceophalic Muskuloskeletal: Full ROM Lymphatic: no lymphedema noted Respiratory: Normal respiratory effort, clear to auscultation bilaterally throughout all lung garcia, no use of accessory muscles Cardio: No JVD, regular rate, regular rhythm, S1 S2 normal, no murmurs, peripheral pulses 2+ radial palpated bilaterally GI: Normal to inspection, nondistended Extremities: Full ROM, normal, normal capillary refill, no cyanosis or edema Neuro: Alert and oriented x4, no focal motor deficits Psych: Affect normal, denies suicidal ideation, mental status grossly normal Skin: Right femoral stick site clean dry intact no signs of hematoma no bruising present no tenderness on palpation, right wrist with what patient states is a chronic cyst Data 09/26/24 02:38 09/26/24 02:38 A&P Assessment and plan (1) Non-ST elevation MA (NSTEMI): (2) HTN (hypertension): Qualifiers: Hypertension type: primary hypertension Qualified Code(s): I10 - Essential (primary) hypertension (3) CHF (congestive heart failure): Qualifiers: Heart failure type: other Qualified Code(s): I50.9 - Heart failure, unspecified (4) Troponin level elevated: Plan Patient's ejection fraction was 25 to 30%. Life vest was placed. He has agreed to wear it. May start Entresto on an outpatient basis if creatinine allows. From a cardiology standpoint, patient may be discharged home and follow-up with us in 7 to 10 days. PDMP PDMP Reviewed: Not Reviewed Attestations 2 Medical Necessity Statement*: Patient may be discharged from a cardiology standpoint. Coding Level of Care Code Acute Code for [facility] Diagnoses Non-ST elevation MA (NSTEMI) I21.4 Primary hypertension I10 Hypertension type: primary hypertension Other congestive heart failure I50.9 Heart failure type: other Troponin level elevated R79.89
[2024-09-26 12:10] VITALS: BP 142/108; PULSE 100; O2SAT 93
--- NOTE | 2024-09-26 13:14 | PC.NURSE ---
meds to bed delivery discharge papers provided. educated with chf stoplight and med compliance and seeing pcp and plant taxonomy teacher.
== END 2024-09-26 13:09 | disposition home or self-care (01) | DRG 281 ==
LOC: ER 16:36 → CSU 16:42
PROVIDERS: Internal Medicine; Internal Medicine Cardiovascular Disease; Admitting Provider Hospitalist; Emergency Provider Family Medicine; Visit Provider Student in an Organized Health Care Education/Training Program
PROC: B2111ZZ Fluoroscopy of Multiple Coronary Arteries using Low Osmolar Contrast (ICD-10-PCS; principal; 2024-09-24 09:00)
DX: I13.0 Hypertensive heart and chronic kidney disease with heart failure and stage 1 through stage 4 chronic kidney disease, or unspecified chronic kidney disease (principal); I50.20 Unspecified systolic (congestive) heart failure; I21.A1 Myocardial infarction type 2; N18.9 Chronic kidney disease, unspecified; I42.8 Other cardiomyopathies; F17.290 Nicotine dependence, other tobacco product, uncomplicated; R91.8 Other nonspecific abnormal finding of lung field; K59.00 Constipation, unspecified; Z95.820 Peripheral vascular angioplasty status with implants and grafts; R09.02 Hypoxemia; I08.3 Combined rheumatic disorders of mitral, aortic and tricuspid valves
CPT/HCPCS: 36415; 80048; 80053; 80061; 81003; 82746; 83036; 83540; 83550; 83735; 84145; 84443; 84484; 85025; 85049; 85730; 93005; 93306; 93454; 93880; 96374; 96375; 96376; 99152; 99153; 99285; C1760; C1769; C1887; C1894; G0269; J0360; J1644; J1940; J2250; J2470; J3010; J3490; J7030; J7512; Q0163; Q9967

== ENCOUNTER → 2024-10-20 13:34 | Outpatient (BNVA) | payer OTHER, SELFPAY | PROVIDERS: Visit Provider Nurse Practitioner Family | DX: I11.0 Hypertensive heart disease with heart failure (principal); I50.9 Heart failure, unspecified; I42.8 Other cardiomyopathies; I25.2 Old myocardial infarction | CPT/HCPCS: 99214 ==

== ENCOUNTER → 2025-02-05 10:07 | Outpatient (BNVA) | payer OTHER, SELFPAY | PROVIDERS: Visit Provider Student in an Organized Health Care Education/Training Program | DX: L72.3 Sebaceous cyst (principal) | CPT/HCPCS: 99204 ==

== ENCOUNTER 2025-05-31 08:23 | Inpatient (IN) | payer OTHER, SELFPAY ==
[2025-05-31] VITALS (96 sets, daily range): BP systolic 123–179; BP diastolic 90–131; PULSE 72–115; RESP 14–97; TEMP 36.5–37.1; O2SAT 84–99; BMI 29.5
--- OUTSIDE RECORDS SUMMARY | 2025-05-31 08:28 | XMS_ITS | Clinical Summary ---
Author Organization [facility] [employer] Address [address] [place] [address] Care Team Providers Care Lunchroom Food Service Supervisor Name Role Phone Pcp, No Primary Care Provider Unavailabl e Allergies No known active allergies Medications cyclobenzaprine (FLEXERIL) 10 MG tablet Take 10 mg by mouth 3 (three) times daily as needed. Active naproxen (NAPROSYN) 500 MG tablet Take 500 mg by mouth 2 (two) times daily as needed. Active DIPHENHYDRAMINE HCL (BENADRYL ALLERGY ORAL) Take by mouth as needed. Active Active Problems Problem Noted Date Diagnosed Date HTN (hypertension) 07/25/2012 Headache disorder 07/25/2012 Hydrocephalus 07/15/2012 SAH (subarachnoid hemorrhage) 07/13/2012 Resolved Problems Problem Noted Date Diagnosed Date Resolved Date Bradycardia 07/15/2012 07/25/2012 Social History Tobacco Use Types Packs/Day Years Used Date Smoking Tobacco: Some Days Cigarettes 0.3 15 Smokeless Tobacco: Never Tobacco Cessation:Ready to Q uit: Yes; Counseling Given: Yes Alcohol Use Standard Drinks/Week Comments Yes 2 (1 standard drink = 0.6 oz pur e alcohol) occ Sex and Gender Information Value Date Recorded Sex Assigned at Not on file Legal Sex Male 6:32 PM [employer] TE[employer] Gender Identity Not on file Sexual Orientation Not on file Last Filed Vital Signs Vital Sign Reading Time Taken Comments Blood Pressure 114/75 08/09/2012 8:24 AM CERT PHARMACY TECH Pulse 58 08/09/2012 8:24 AM CERT PHARMACY TECH Temperature 36.5 C (97.7 F) 08/09/2012 8:24 AM CERT PHARMACY TECH Respiratory Rate 18 07/25/2012 11:00 AM CERT PHARMACY TECH Oxygen Saturation 97% 08/09/2012 8:24 AM CERT PHARMACY TECH Inhaled Oxygen Concentration - - Weight 93 kg (205 lb) 08/09/2012 8:24 AM CERT PHARMACY TECH Height 175.3 cm (5' 9 ) 08/09/2012 8:24 AM CERT PHARMACY TECH Body Mass Index 30.27 08/09/2012 8:24 AM CERT PHARMACY TECH Plan of Treatment Health Maintenance Due Date Last Done Comments HEP C SCREENING 1974 HEPATITIS B VACCINES (1 of 3 - 19+ 3-dose series) 1993 COLOGUARD 2019 COLONOSCOPY 2019 COLORECTAL CANCER SCREENING NEW 2019 FIT 2019 FOBT 2019 SIGMOIDOSCOPY 2019 COVID 19 VACCINE (1 - 2023-2 5 season) 2025 INFLUENZA VACCINE (#1) 2025 HEPATITIS A VACCINES Aged Out No long er eligible based on patient's age to complete this topic HPV VACCINES Aged Out No longer eligi ble based on patient's age to complete this topic MENINGOCOCCAL B VACCINES Aged Out No longer eligible based on patient's age to complete this topic MENINGOCOCCAL VACCINES Aged Out No lo nger eligible based on patient's age to complete this topic PNEUMONIA VACCINE 0-5 AND AT RISK 6-64 Aged Out No longer eligible b ased on patient's age to complete this topic ROTAVIRUS VACCINES Aged Out No longer eligible based on patient's age to complete [place] [address] Advance Directives For more information, please contact: [phone] * Full Code (Latest Code Status on File) Date Activated Date Inactivated Comments 07/13/2012 8:16 PM 07/25/2012 2:12 PM Care Teams Lunchroom Food Service Supervisor Relationship Specialty Start Date End Date Pcp, No PCP - General 07/16/24
--- OUTSIDE RECORDS SUMMARY | 2025-05-31 08:29 | XMS_ITS | Clinical Summary ---
Author Organization [facility] Address [address] [place] [address] Care Team Providers Care Animal Treatment Investigator Name Role Phone Ree Caba MD Unavailable [phone] Pcp, Asked- No Primary Care Provider Unavailabl e Allergies No known active allergies Medications verapamil (CALAN) 40 mg oral tabletIndicatio ns:Variants of migraine, not elsewhere classified, with intractable migraine, so stated, without mention of status migrainosus Take 1 Tab by mouth three times daily. 90 Tab 2 4 Active ASPIRIN ORAL Take 81 mg by mouth daily. Active acetaminophen-c odeine (TYLENOL #3) 300-30 mg oral tablet Take 1 Tablet by mouth every 6 hours as needed for Pain Max of 3000 mg acetaminophen/24 hrs (all sources). 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 of fluid. 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 Cerebral aneurysm, nonruptured 09/18/2012 Immunizations Immunization Administration Dates Next Due Pneumovax 23 (Pneumococcal Polysaccharide, 23-Va lent) 09/19/2012 Social History Tobacco Use Types Packs/Day Years Used Date Smoking Tobacco: Former Cigarettes 0 Q uit: 05/20/1996 Passive Smoke Exposure: Never Smokeless Tobacco: Never Tobacco Cessation:Counseling Given: No Comments:uses electronic cigarettes currently, has nicotene Alcohol Use Standard Drinks/Week Comments Yes 0 (1 standard drink = 0.6 oz pur e alcohol) couple drinks a month Sex and Gender Information Value Date Recorded Sex Assigned at Not on file 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 Gender Identity Not on file Sexual Orientation Not on file Last Filed Vital Signs Vital Sign Reading Time Taken Comments Blood Pressure 175/116 02/28/2023 9:27 AM CDT Pulse 98 02/28/2023 9:27 AM CDT Temperature 36.4 C (97.5 F) 02/22/2023 1:32 PM CDT Respiratory Rate 20 02/22/2023 2:15 PM CDT Oxygen Saturation 95% 02/22/2023 2:15 PM CDT Inhaled Oxygen Concentration - - Weight 99.8 kg (220 lb) 02/28/2023 9:27 AM CDT Height 175.3 cm (5' 9 ) 02/28/2023 9:27 AM CDT Body Mass Index 32.49 02/28/2023 9:27 AM CDT Plan of Treatment Health Maintenance Due Date Last Done Comments Hepatitis B Vaccines (2 of 3 - 19+ 3-dose series) 07/31/2011 07/03/2011 COLON CA SCREENING-COLONOSCOPY 2019 Pneumococcal Vaccine: >50 years (2 of 2 - PCV) 07/28/2020 07/28/2019, 09/19/2012 DTaP/Tdap/Td Vaccines (2 - Td or Tdap) 12/20/2020 12/20/2010, 05/06/2001 Shingles Vaccines (1 of 2) 2024 Flu Vaccine 03/06/2025 05/06/2021, 12/10/2018, 05/06/2013, Additional history exists HPV Vaccines Aged Out No longer eligi ble based on patient's age to complete this topic Hib Vaccines Aged Out No longer eligi ble based on patient's age to complete this topic IPV Vaccines Aged Out No longer eligi ble based on patient's age to complete this topic Meningococcal B Vaccines Aged Out No longer eligible based on patient's age to complete this topic Medical Devices Implanted Type Area Television Newscast Director Device Identifier Shelf Expiration Date Model / Serial / Lot Coil Target 360 Ultra [id number] - [id number] Implanted:Qty: 1 on 09/18/2012 [facility] Ex[facility]Quanti ty not on file) N/A: ANEURYSM hhgregg 03/04/2014 [id number] 00 / / [id number] Description:[id number] taken from [employer] Target Coil 360 ULTRA, Embolization Coil Tonya Neurovascular, [email or web address] Conditional 5 @ 1.5,3 Traci Coil Target 360 Ultra 5mm X 15 - [id number] Implanted:Qty: 1 on 09/18/2012 by Brianna Morrell MD at [facility] Ex[facility]ed:(Quanti ty not on file) N/A: ANEURYSM hhgregg 07/05/2014 [id number] 50 / / [id number] Description:[id number] taken from [employer] Target Coil 360 ULTRA, Embolization Coil Tonya Neurovascular, [email or web address] Conditional 5 @ 1.5,3 Traci Coil Target 360 Ultra 5mm X 15 - [id number] Implanted:Qty: 1 on 09/18/2012 by Brianna Morrell MD at Replaced by [facility] Ex[facility]ed:(Quanti ty not on file) N/A: ANEURYSM hhgregg 04/04/2015 [id number] 50 / / [id number] Description:[id number] taken from [employer] Target Coil 360 ULTRA, Embolization Coil Tonya Neurovascular, [email or web address] Conditional 5 @ 1.5,3 Traic Coil Target 360 Ultra [id number] - [id number] Implanted:Qty: 1 on 09/18/2012 [facility] Ex[facility]ed:(Quanti ty not on file) N/A: ANEURYSM [employer] 02/02/2015 [id number] 00 / / [id number] Description:[id number] taken from [employer] Target Coil 360 ULTRA, Embolization Coil Bethel Neurovascular, [email or web address] Conditional 5 @ 1.5,3 Traci Coil Target Helical Ultra 3mm - [id number] Implanted:Qty: 1 on 09/18/2012 by Brianna Morrell MD at [facility] [facility] Explanted:(Quanti ty not on file) N/A: ANEURYSM hhgregg 07/05/2014 [id number] 00 / / [id number] Description:[id number] taken from [employer] Target Coil HELICAL ULTRA, Embolization Coil Bethel Neurovascular, [email or web address] Conditional 5 @1.5,3 Traci Mynxgrip Vascular Closure 6fr/ - [id number] Implanted:Qty: 1 on 09/18/2012 by Regis Wagner DO at [facility] Mira Rob [facility] N/A: GROIN ACC/CL 07/05/2013 [id number] / / [id number] Description:[id number] Stent Neuroform3 3.5 X 15mm - [id number] Implanted:Qty: 1 on 12/05/2012 at [facility] Mira Rob [facility] Explanted:(Quanti ty not on file) N/A: ARTERIAL [employer] 10/03/2013 [id number] / / [id number] Description:L internal carot id taken from [employer] Neuroform Stent [employer] and Tonya Neurovascular Conditional 5 @1.5,3 Traci Stent Neuroform3 3.5 X 30mm - [id number] Implanted:Qty: 1 on 12/05/2012 [facility] Explanted:(Quanti ty not on file) N/A: ARTERIAL [employer] 02/02/2013 [id number] / / [id number] Description:L internal carot id taken from [employer] Neuroform Stent [employer] and Bethel [employer]vascular Conditional 5 @1.5,3 Traci Mynxgrip Vascular Closure 6fr/ - [id number] Implanted:Qty: 1 on 12/05/2012 [facility] N/A: GROIN ACC/CL 11/03/2013 [id number] / / [id number] Mynxgrip Vascular Closure 5fr - [id number] Implanted:Qty: 1 on 06/30/2013 [facility] N/A: GROIN ACC/CL 02/02/2014 [id number] / / [id number] Description:implanted [place] [address] DEPARTMENT OF [facility] [place] [address] Advance Directives * Full Code (Latest Code Status on File) Date Activated Date Inactivated Comments 12/05/2012 4:05 PM 12/06/2012 12:15 PM * Full Code Date Activated Date Inactivated Comments 09/18/2012 4:55 PM 09/19/2012 2:57 PM Care Teams Animal Treatment Investigator Relationship Specialty Start Date End Date Pcp, Asked- No [address] [place] [address] PCP - General 01/16/23 Ree Caba MD [address] [facility] [address] [place] [address] Physician Cardiovascular Disease 09/01/14
--- OUTSIDE RECORDS SUMMARY | 2025-05-31 08:29 | XMS_ITS | Clinical Summary ---
Author Organization [facility] es Address [address] [place] [address] Care Team Providers Care Career Technical Counselor Name Role Phone Not In Database, Pcp Primary Care Provider Unava ilable Source Comments Applies to Substance Abuse Treatment Information Only: The Federal rules restrict any use of the information to criminally investigate or prosecute any Alcohol or Drug Abuse Patient.[place] [employer] Allergies No known active allergies Medications verapamil (CALAN) 40 mg tablet Take 40 mg by mouth three(3) times daily. Active SUMAtriptan (IMITREX) 20 mg/actuation spray 1 [place] into nose two(2) times daily as needed. 1 Bottle 0 10/13/2015 Active acetaminophen-c odeine (TYLENOL #3) 300-30 mg tablet Take 1 Tab by mouth every six(6) hours as needed 15 Tab 04/26/2018 Active tobramycin (Tobrex) 0.3 % ophthalmic solution Apply or instill 1 Drop into left eye every four(4) hours Apply to affected eye(s)/ear(s) . 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 Gender Identity Not on file Sexual Orientation Not on file Last Filed Vital Signs Vital Sign Reading Time Taken Comments Blood Pressure 161/110 03/06/2023 10:03 PM CDT Pulse 117 03/06/2023 10:03 PM CDT Temperature 36.8 C (98.2 F) 03/06/2023 10:03 PM CDT Respiratory Rate 20 03/06/2023 10:03 PM CDT Oxygen Saturation 100% 03/06/2023 10:03 PM CDT Inhaled Oxygen Concentration - - Weight 103 kg (227 lb 1.2 oz) 03/06/2023 10:03 P M CDT Height 175.3 cm (5' 9 ) 03/06/2023 10:03 PM CDT Body Mass Index 33.53 03/06/2023 10:03 PM CDT Plan of Treatment Health Maintenance Due Date Last Done Comments Depression Screening 1986 Annual Physical 1999 Hepatitis B (2 of 3 - 19+ 3- dose series) 07/31/2011 07/03/2011 Fasting Lipids 2014 Colorectal Screening: Assign Specific Plan 2019 DTaP,Tdap,and Td Vaccines (2 - Tdap) 12/20/2020 12/20/2010 Pneumococcal Vaccine 50+ Yea rs (2 of 2 - PCV) 2024 07/28/2019 Zoster Vaccine Series (Shing muriel) (1 of 2) 2024 COVID-19 Vaccine (1 - 2023-2 5 season) 2025 Influenza Vaccine-Adult (#1) 2025 07/28/2019 Meningococcal B Vaccine Aged Out No l onger eligible based on patient's age to complete this topic Meningococcal Vaccine Aged Out No shandra glo eligible based on patient's age to complete this topic Insurance [employer] VAC[employer] SELF PAY on file Care Teams Career Technical Counselor Relationship Specialty Start Date End Date Not In Database, Pcp PCP - General 03/06/23
--- NOTE | 2025-05-31 08:39 | CTR_ITS ---
PROCEDURE INFORMATION: Exam: CT Head Without Contrast Exam date and time: 05/31/2025 8:39 AM Age: 50 years old Clinical indication: Stroke-like symptoms; Visual disturbance; Additional info: Symptoms of acute stroke TECHNIQUE: Imaging protocol: Computed tomography of the head without contrast. Radiation optimization: All CT scans at this facility use at least one of these dose optimization techniques: automated exposure control; mA and/or kV adjustment per patient size (includes targeted exams where dose is matched to clinical indication); or iterative reconstruction. Other technique: STROKE PROTOCOL was implemented. COMPARISON: No relevant prior studies available. RADIATION DOSE METRICS: Total DLP (mGy-cm): 1279.57 FINDINGS: Brain: Cavum vergae common normal variant. No acute infarction. No mass. No hemorrhage. No edema. Ventricles: No hydrocephalus or evidence of increased intracranial pressure. Paranasal sinuses: Opacified left maxillary sinus. Moderate-severe mucosal thickening right maxillary sinus. Opacified left anterior ethmoid air cell. Mastoid air cells: Visualized mastoid air cells are well aerated. Bones: Unremarkable. No acute fracture. Soft tissues: Unremarkable. Vasculature: Endovascular coiling material regional to the left vertebral artery V4 segment. CT/CT head thrombolytic [id number] IMPRESSION: 1. No acute intracranial abnormality identified. 2. Incidental paranasal sinus disease as above. ASSESSMENT: ASPECTS ([place] Stroke Program Early CT Score) is 10.
--- NOTE | 2025-05-31 08:39 | XRR_ITS ---
PROCEDURE INFORMATION: Exam: XR Chest Exam date and time: 05/31/2025 8:42 AM Age: 50 years old Clinical indication: Shortness of breath; Additional info: SOB TECHNIQUE: Imaging protocol: Radiologic exam of the chest. Views: 1 view. Other technique: Frontal portable upright view of the chest. COMPARISON: CT angio chest PE protcl [id number] 09/22/2024 8:28 AM FINDINGS: Lungs: The pulmonary vasculature is normal. The lungs are clear bilaterally. Pleural spaces: No pleural effusion. No pneumothorax. Heart/Mediastinum: Stable moderate cardiomegaly. Mediastinum: Stable. Bones/joints: Stable. XR/XR chest 1V portable [id number] IMPRESSION: No acute cardiopulmonary abnormality identified.
--- NOTE | 2025-05-31 08:39 | PC.NURSE ---
reason for stroke fall out: charge nurse was triaging a patient in room 16 and triage nurse was off the floor. registration never called back to nurses station to inform of stroke like symptoms. triage nurse returned to floor and noticed patient up front and triaged, brought back to room 11 after obtaining history and vitals in triage and called stroke alert.
--- NOTE | 2025-05-31 08:39 | ECG_ITS ---
[employer] Test Date: 2025-05-31 Pat Name: Andry Del Cid Department: Room: Gender: Male Director Packaging: : [id number] Requested By: Chiquis Diaz Order Number: [id number] Reading MD: PIPO CLARK Measurements Intervals [place] Rate: 105 P: 52 RI: 187 QRS: -61 QRSD: 109 T: 113 QT: 378 QTc: 501 Interpretive Statements SINUS TACHYCARDIA LEFT ATRIAL ENLARGEMENT [-0.15mV P-WAVE IN V1/V2] INCOMPLETE RIGHT BUNDLE BRANCH BLOCK [90+ ms QRS DURATION, TERMINAL R IN V1/V2, 40+ ms S IN I/aVL/V4/V5/V6] LEFT ANTERIOR FASCICULAR BLOCK [QRS AXIS <= -45, QR IN I, RS IN II] LEFT VENTRICULAR HYPERTROPHY AND ST-T CHANGE [VOLTAGE CRITERIA PLUS ST/T ABNORMALITY] POSSIBLE SEPTAL MYOCARDIAL INFARCTION , PROBABLY OLD [30 ms Q WAVE IN V1/V2] Compared to ECG 09/23/2024 06:19:06 Left anterior fascicular block now present Electronically Signed On 05-31-2025 22:25:30 CDT by PIPO CLARK [id number] [id number]
[2025-05-31] MEDS: tenecteplase 50mg Kit (STROKE) 23 MG IVP (09:02)
--- NOTE | 2025-05-31 09:03 | ED_ITS ---
HPI - Neuro Symptoms/Deficit 2 General: Chief Complaint: Neuro Symptoms/Deficit Stated Complaint: blurry vision, visual disturbances Time Seen by Provider: 05/31/25 08:35 Source: patient Mode of arrival: ambulatory Limitations: no limitations History of Present Illness: 50-year-old male who states that he was driving at 730 this morning and noticed that he had visual deficit his left lower vision. States he just sees black. He denies any headaches he denies any slurred speech denies any weakness. No history of strokes in the past. Related Data Home Medications ?Medication ?Instructions ?Recorded ?Confirmed acetaminophen 500 mg tablet 500 mg PO QID PRN Fever Or Pain 05/31/25 05/31/25 (Tylenol Extra Strength) sacubitril 97 mg-valsartan 103 mg 0.5 tab PO BID 05/3105/31/25 tablet (Entresto) Previous Rx's ?Medication ?Instructions ?Recorded carvedilol 6.25 mg tablet 6.25 mg PO BID #60 tabs 09/07 08/30 losartan 50 mg tablet 100 mg (2 x 50 mg) PO DAILY #60 09/26/24 tabs Allergies Allergy/AdvReac Type Severity Reaction Status Date / Time No Known Allergies Allergy Verified 02/05/25 10:11 Review of Systems 2 Eyes: Reports: change in vision PFSH ED 2 PFSH: Medical History Vapes nicotine containing substance HTN (hypertension) Cluster headache Social History Smoking and tobacco/nicotine status: former use of tobacco/nicotine Alcohol intake: never Substance/Drug Use: current Substance/Drug use frequency: Special occassions/opportunity only NIH stroke score 2 NIHSS: Level Of Consciousness - 1a: 0 Level Of Consciousness Questions - 1b: Both Correct Level Of Consciousness Commands - 1c: Both Correct Best Gaze - 2: Normal Visual Orourke - 3: Partial Hemianopia Facial Palsy - 4: N ormal Motor Arm Right - 5: No Drift Motor Arm Left - 5: No Drift Motor Leg Right - 6: No Drift Motor Leg Left - 6: No Drift Limb Ataxia - 7: A bsent Sensory - 8: Normal Best Language - 9: No Aphasia Dysarthia - 10: Normal Extinction And Inattention - 11: 0 Score: Total Score: 1 Physical Exam 2 Const: COMMON NORMALS: no acute distress, patient oriented x3 and healthy appearing HENMT: COMMON NORMALS: normocephalic and atraumatic HEAD & SCALP: n ormocephalic and atraumatic Eye: COMMON NORMALS: Equal, round and reactive pupils present and EOMs intact bilaterally VISUAL OROURKE: Yes visual field cut by quadrant Visual field cut by quadrant: lower outer visual field cut: left PUPIL: Yes Equal, round and reactive pupils present Neck/C-Spine: COMMON NORMALS: full ROM and supple Chest: COMMONS NORMALS: normal inspection of the chest and normal palpation of entire chest wall Resp: COMMON NORMALS: normal respiratory effort, No retractions, No use of accessory muscles and clear to auscultation bilaterally AUSCULTATION: clear to auscultation bilaterally Cardio: COMMON NORMALS: regular rate, regular rhythm and No murmurs present (Cardio) RATE: regular rate RHYTHM: regular rhythm GI: COMMON NORMALS: Normal to inspection, nondistended, normoactive bowel sounds present, Soft to palpation, non-tender and no masses PALPATION: Yes Soft to palpation Extremity: COMMON NORMALS: normal to inspection and full ROM Neuro: COMMON NORMALS: patient oriented x3 and moves all extremities S PEECH: speech normal GAIT: Yes Normal gait present MOTOR EXAM: 5/5 motor strength present throughout Psych: COMMON NORMALS: mental status grossly normal, Normal thought process present and cooperative THOUGHT PROCESS: Normal thought process present Skin: COMMON NORMALS: no rashes or lesions noted and no wounds GENERAL SKIN EXAM: no rashes or lesions noted Course 2 Vital Signs: Vital signs: Vital Signs Temperature 97.7 F 05/31/25 08:35 Pulse Rate 99 05/31/25 09:31 Respiratory Rate 29 H 05/31/25 09:31 Blood Pressure 136/102 05/31/25 09:31 Pulse Oximetry 97 05/31/25 09:30 Oxygen Delivery Me thod Room Air 05/31/25 08:35 MDM - Neuro Symptoms/Deficit Medical Decision Making Patient presents here with bilateral left lower quadrant visual deficit started at 730. Patient was evaluated by me along with neurologist Dr. Fitzgerald who recommended TNKase. Patient's head CT was reviewed no signs of hemorrhage. Patient has no risk factors for administration of TNK I did go over risk and benefits and he gave consent. TNKase was given at 902. His EKG here shows sinus tachycardia [address] elevation QRS 109 QTc 439. Patient's blood work here shows no acute abnormalities. Will admit patient at this time to the ICU I spoke to Dr. Jenkins who is admitting doc Dr. Fitzgerald is consulted Medical Records I reviewed the patient's medical records. Lab Data I reviewed the patient's lab results. 05/31/25 09:38 05/31/25 09:00 Radiology Impressions Chest X-Ray 05/31/25 08:39 IMPRESSION: No acute cardiopulmonary abnormality identified. Head CT 05/31/25 08:39 IMPRESSION: 1. No acute intracranial abnormality identified. 2. Incidental paranasal sinus disease as above. ASSESSMENT: ASPECTS ([place] Stroke Program Early CT Score) is 10. ADDENDUM: 05/31/25856 THIS REPORT CONTAINS FINDINGS THAT MAY BE CRITICAL TO PATIENT CARE. The findings were verbally communicated by me to DR. SAHISH AIKEN via telephone conference at 8:55 AM CDT on 05/31/2025. The findings were acknowledged and understood. Laboratory Results WBC 9.79 10^3/uL (3.29-11.43) 05/31/25 09:38 Corrected WBC Cancelled 05/31/25 09:00 RBC 5.03 10^6/uL (3.85-5.65) 05/31/25 09:38 Hgb 15.40 g/dL (11.27-16.99) 05/31/25 09:38 Hct 45.6 % (37-53) 05/31/25 09:38 MCV 90.7 fl (82-101) 05/31/25 09:38 MCH 30.6 pg (27-33) 05/31/25 09:38 MCHC 33.8 g/dL (30-55) 05/31/25 09:38 RDW 13.4 % (12.1-15.1) 05/31/25 09:38 Plt Count 372 10^3/cmm (157-399) 05/31/25 09:38 MPV 10.2 fL (7.4-10.4) 05/31/25 09:38 Gran % Cancelled 05/31/25 09:00 Neut % (Auto) 72.9 % 05/31/25 09:38 Lymph % (Auto) 14.6 % 05/31/25 09:38 [place] % (Auto) 9.2 % 05/31/25 09:38 Eos % (Auto) 1.9 % 05/31/25 09:38 Baso % (Auto) 1.0 % 05/31/25 09:38 Neut # (Auto) 7.13 10^3/uL (1.8-7.7) 05/31/25 09:38 Lymph # (Auto) 1.4 10^3/uL (0.8-4.8) 05/31/25 09:38 [place] # (Auto) 0.9 10^3/uL (0.2-0.9) 05/31/25 09:38 Eos # (Auto) 0.2 10^3/uL (0.0-0.8) 05/31/25 09:38 Baso # (Auto) 0.1 10^3/uL (0.0-0.1) 05/31/25 09:38 Absolute Gran (auto) Cancelled 05/31/25 09:00 Nucleated RBC % (auto) 0 % 05/31/25 09:38 Nucleated RBCs # 0.0 /100WBC 05/31/25 09:38 PT 14.50 SECONDS (12.1-14.9) 05/31/25 09:00 INR 1.05 (0.8-1.2) 05/31/25 09:00 APTT 20.7 SECONDS (23.9-36.7) L 05/31/25 09:00 Sodium 136 mmol/L (136-145) 05/31/25 09:00 Potassium 3.9 mmol/L (3.5-5.1) 05/31/25 09:00 Chloride 100 mmol/L (98-107) 05/31/25 09:00 Carbon Dioxide 22 mmol/L (22-29) 05/31/25 09:00 Anion Gap 17.9 (5-19) 05/31/25 09:00 BUN 16 mg/dL (6-20) 05/31/25 09:00 Creatinine 1.2 mg/dL (0.7-1.2) 05/31/25 09:00 GFR Calculation 63.8 mL/min (90-130) L 05/31/25 09:00 Glucose 119 mg/dL (65-115) H 05/31/25 09:00 POC Glucose 129 mg/dL (70-110) H 05/31/25 08:40 Calculated Osmolality 284 mOsm/kg (285-295) L 05/31/25 09:00 Calcium 9.1 mg/dL (8.5-10.5) 05/31/25 09:00 Total Bilirubin 0.9 mg/dL (0.15-1.2) 05/31/25 09:00 AST 31 U/L (0-40) 05/31/25 09:00 ALT 35 U/L (0-41) 05/31/25 09:00 Alkaline Phosphatase 81 U/L (40-130) 05/31/25 09:00 Total Protein 7.3 g/dL (6.6-8.7) 05/31/25 09:00 Albumin 3.9 g/dL (3.5-5.2) 05/31/25 09:00 Globulin 3.4 g/dL (1.3-4.6) 05/31/25 09:00 No radiology studies performed this visit EKG Data EKG 1: I personally reviewed and interpreted this EKG as follows: EKG interpretation date: 05/31/25 EKG interpretation time: 08:50 Interpretation: sinus tach hr [address] elevation qrs 109 qtc 439 Critical Care Time 2 Critical Care Time: Critical Care Time: Yes Total Critical Care Time: 35 Attestation: The high probability of a clinically significant, sudden or life threatening deterioration of the patient's neuro system(s) required my full and direct attention, intervention and personal management. The critical care time is as shown. This time is in addition to time spent performing any reported procedures but includes the following: [x] Data and vital sign review and interpretation [x] Patient assessment, examination and intervention [x] Documentation [x] Medication orders and management Discharge Plan Discharge Patient Disposition: Admitted As Inpatient Clinical Impression: Cerebrovascular accident Condition: Stable Coding Level of Care Code ED Geography Professor for Rony Maldonado
[2025-05-31 09:23] LABS: Alanine Aminotransferase 35 U/L (0-41); Albumin Level 3.9 g/dL (3.5-5.2); Alkaline Phosphatase 81 U/L (40-130); Aspartate Amino Transferase 31 U/L (0-40); Blood Urea Nitrogen 16 mg/dL (6-20); Calcium 9.1 mg/dL (8.5-10.5); Carbon Dioxide 22 mmol/L (22-29); Chloride 100 mmol/L (98-107); Creatinine Clr Calc Pharmacy 81.0757; Globulin 3.4 g/dL (1.3-4.6); Glucose 119 mg/dL (65-115); Osmolality Calculated 284 mOsm/kg (285-295); Sodium 136 mmol/L (136-145); Total Protein 7.3 g/dL (6.6-8.7)
[2025-05-31 09:27] LABS: INR 1.05 (0.8-1.2); Prothrombin Time 14.50 SECONDS (12.1-14.9)
[2025-05-31 09:28] LABS: Partial Thromboplastin Time 20.7 SECONDS (23.9-36.7)
[2025-05-31 09:29] LABS: Anion Gap 17.9 (5-19); Potassium 3.9 mmol/L (3.5-5.1)
[2025-05-31 09:50] LABS: Hematocrit 45.6 % (37-53); Hemoglobin 15.40 g/dL (11.27-16.99); Mean Corpuscular HGB Conc 33.8 g/dL (30-55); Mean Corpuscular Hemoglobin 30.6 pg (27-33); Mean Corpuscular Volume 90.7 fl (82-101); Nucleated Red Blood Cells % 0 %; Platelet Count 372 10^3/cmm (157-399); Red Blood Count 5.03 10^6/uL (3.85-5.65); White Blood Count 9.79 10^3/uL (3.29-11.43)
--- NOTE | 2025-05-31 09:55 | PC.PHAR ---
Addendum entered by Juliann Pitts 05/31/25 10:03: Entresto 97/103 last fill 11/21/24 90days Original Note: Spoke to [facility] , patient hasnt filled any medications since September 30 . At that time he filled ,90days on Ventolin hfa inhaler, Carvedilol 12.5 1/2 tab Bid, Entresto 97/103 /2tab bid, Losartan 100mg daily .
--- NOTE | 2025-05-31 12:36 | PC.NURSE ---
Nursing Dysphasia Screening: Patient does well with thin liquids, well with kelvin crackers, and pudding. Patient drinking from [employer] upon arriving.
--- NOTE | 2025-05-31 12:43 | PM.SAN ---
Stroke Alert Activation ED Arrival Date: 05/31/25 ED Arrival Time: 08:31 ED Physican at Bedside: 08:35 Last Known Normal/at Baseline: < 1 hour ago Other Last Known Well Infomation: he presented to triage with sudden onset visual loss within the hour. Dr. Diaz demonstrated no findings except right inferior quadrantanopsia. His blood pressure came down passively. CT head performed on arrival reviewed by me with Dr. Diaz. NIHSS performed with Joe Gomez and myself on tele. We agreed that the visual deficit would be disabling. Patient gave informed consent and TNK was given at 0902. Pt admit to hospitalist service. keep bp within post thrombolytic guidelines. start dual antiplatelet therapy in 24 hours. Stroke Alert Activated by: triage Stroke Alert Activation Time: 08:39 Stroke MD @ Bedside Time: 08:39 NIH Stroke Scale Time: 08:54 NIH stroke score NIHSS: Level Of Consciousness - 1a: 0 Level Of Consciousness Questions - 1b: Both Correct Level Of Consciousness Commands - 1c: Both Correct Best Gaze - 2: Normal Visual Desai - 3: Partial Hemianopia Facial Palsy - 4: Normal Motor Arm Right - 5: No Drift Motor Arm Left - 5: No Drift Motor Leg Right - 6: No Drift Motor Leg Left - 6: No Drift Limb Ataxia - 7: Absent Sensory - 8: Normal Best Language - 9: No Aphasia Dysarthia - 10: Normal Extinction And Inattention - 11: 0 Score: Total Score: 1 Stroke Alert Data/Treatment Time to CT of Head: 08:39 CT Results Time: 08:55 CT Impression: normal Stroke Risk Factors: coronary artery disease and hypertension tPA Started Time: tPA Started - Time: 09:02 Standardized Stroke Orders Used: Yes Critical Care Time Critical Care Time: less than 30 mins A&P Assessment and plan 1. 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 rule out local intracranial disease, artery to artery thrombosis, aortic arch syndrome or cardiac source. plan to treat with plavix, aspirin and atorvastatin. ct in am to rule out post tnk hemorrhage. there is no reason to do an inpatient MRI. if patient is well he can probably go arron in the morning after CT head. follow up in neurology 2. Uncontrolled hypertension: 3. CKD (chronic kidney disease): Plan: CTA. please do not do MRI until after discharge and I will review it at follow up. consider 30 day heart monitor. PDMP PDMP Reviewed: Not Reviewed Coding Level of Care Code Acute Code for Chg Fwd Diagnoses Cerebrovascular accident (CVA) due to embolism of right posterior cerebral artery I63.431 CVA mechanism: embolism Precerebral and cerebral artery: posterior cerebral artery Laterality of affected vessel: right Uncontrolled hypertension I10 CKD (chronic kidney disease) N18.9
--- NOTE | 2025-05-31 12:46 | PC.NURSE ---
Educated patient family that they could not vape in hospital.
--- NOTE | 2025-05-31 14:54 | P.HP_ITS ---
Providers/Chief Complaint 2 Admitting Physician: Dave Jenkins MD Chief Complaint: blurry vision, visual disturbances History of Present Illness As per the previous notes and the patient: Andry Del Cid is a 50 year old male with PMH of congestive heart failure, HTN, VAP smoking, was in his usual state of health when in the morning around 7:30am he felt he is having left sided vision problem involving his lower outer quadrant of field which seems like a white chalk board. there was no other focal abnormality like speech difficulty or any motor of sensory loss. the patient was oriented and alert therefore came to the ER and was given TNK within the time frame after discussing with the neurology. the pateint did not report any abdominal pain, chest pain, chest pressure, or any SOB. no orthopnea or PND. rest of the ROS is unremarkable. Review of Systems 2 General: Reports: 10 or more systems reviewed and unremarkable except in HPI and below Medications/Allergies Home Medications ?Medication ?Instructions ?Recorded ?Confirmed ?Last Taken ?Type carvedilol 6.25 mg tablet 6.25 mg PO BID #60 tabs 09/0705/31/25 Unknown Rx losartan 50 mg tablet 100 mg (2 x 50 mg) PO DAILY #60 09/26/24 05/31/25 Unknown Rx tabs acetaminophen 500 mg tablet 500 mg PO QID PRN Fever Or Pain 05/31/25 05/31/25 Unknown History (Tylenol Extra Strength) sacubitril 97 mg-valsartan 103 mg 0.5 tab PO BID 05/3105/31/25 Unknown History tablet (Entresto) Allergies Allergy/AdvReac Type Severity Reaction Status Date / Time No Known Allergies Allergy Verified 02/05/25 10:11 PFSH Acute 2 PFSH: Medical History (Updated 05/31/25 @ 15:10 by Dave Jenkins MD) Vapes nicotine containing substance HTN (hypertension) Cluster headache Social History Smoking and tobacco/nicotine status: former use of tobacco/nicotine Alcohol intake: never Substance/Drug Use: current Substance/Drug use frequency: Special occassions/opportunity only Vitals/I&O/Wt Last Vital Signs Temp 98.0 F 05/31/25 14:42 Pulse 99 05/31/25 14:42 Resp 16 05/31/25 14:42 BP 136/104 05/31/25 14:42 Pulse Ox 98 05/31/25 13:09 O2 Del Method Room Air 05/31/25 13:09 Weight last 48 hrs Weight 90.718 kg Weight 90.718 kg Physical Exam 2 Narrative: General: Alert and oriented, lying comfortably without any distress HEENT: Normocephalic, atraumatic, grossly unremarkable exam Cardio: normal rate rhythm, normal S1-S2 without any murmurs, rubs, or gallops and JVD normal Respiratory: normal vascular breathing on auscultation without any wheezes, stridor, rhonchi GI: Abdomen soft, nontender, nondistended, normoactive bowel sounds present all 4 quadrants, Neuro: intact cranial nerves apart from peripheral vision showing left-sided inferior quadrantanopsia, no motor and sensory and cerebellar/coordination function without any focal neurological deficit Behavior: Appropriate and cooperative Extremities: Adequate palpable pulses, no edema or cyanosis observed Skin: grossly unremarkable exam Data 05/31/25 09:38 05/31/25 09:00 A&P Assessment and plan 1. 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 S/p TNK based on the patient window frame and presentation. Echo Hold antihypertensives in the first 24 hours to avoid any further lowering of blood pressure. Resume home medications carvedilol and Entresto from tomorrow Aspirin Plavix and statin to resume after 24 hours No IV lines or blood breaks in the first 24 hours post TNK Telemetry monitoring HbA1c, TSH and lipid staff development nurse hemodynamics Intake and output monitoring 2. CHF (congestive heart failure): Patient on carvedilol 6.25 mg twice daily and Entresto half tablet twice daily Losartan 100 mg daily To resume based on patient hemodynamics after 24 hours of TNK 3. CKD (chronic kidney disease): Currently stable at baseline, continue to monitor renal functions and electrolytes with further correction accordingly 4. Vapes nicotine containing substance: Patient has been counseled about vaping and nicotine with adequate abstinence for better health 5. HTN (hypertension): Currently stable, hold antihypertensives based on patient presentation is acute stroke To resume after 24 hours based on patient blood pressure and clinical assessment 6. Anxiety: Patient has been provided adequate counseling and calming techniques Alprazolam as needed at night PDMP PDMP Reviewed: Not Reviewed Attestations 2 Medical Necessity Statement*: Patient will stay overnight for the management of acute stroke post tPA requiring further stroke workup and OT PT eval Time Spent in Patient Care: 16 - 35 minutes (>than 50% of time sp ent in counselling and/or direct pt care on unit) . Critical Care Time: The high probability of a clinically significant, sudden or life threatening deterioration, as referenced in this documentation, required my full and direct attention, intervention and personal management. The critical care time shown is in addition to time spent performing any reported separately billable procedures and includes the following: [x] Data and vital sign review and interpretation [x ] Patient assessment, examination and intervention [x] Medication orders and management [x] Patient/Family updates as able [x] Care Coordination and Documentation. Critical Care Time (min): 35 Other Attestations: Patient condition has been discussed at length with the patient/family, I have independently reviewed the chart labs imaging/diagnostics/EKG. the goals of care and code status with the patient/family/NOK/legal sales representative canvas products, and documented accordingly. The patient/family has been informed about the current condition and further plan of care. Agreed with the plan of care and understood without any language barrier. Every effort was made to ensure accuracy of three knife trimmer. Any obvious errors or omissions should be clarified with the author of the document. Coding Level of Care Code Critical Care >/= 30 minutes Diagnoses Acute stroke due to occlusion of left posterior cerebral artery I63.532 CHF (congestive heart failure) I50.9 CKD (chronic kidney disease) N18.9 Vapes nicotine containing substance Z72.0 HTN (hypertension) I10 Anxiety F41.9
[2025-05-31 15:50] LABS: Glucose Urine UA Negative (Normal); Nitrate Urine Negative (Negative); Specific Gravity, Urine 1.009 (1.005-1.030)
[2025-05-31 15:52] LABS: Add Urine Microscopic? YES
[2025-05-31 16:00] LABS: Estmated Average Glucose 108; Hemoglobin A1C 5.4 % (4.0-6.0)
[2025-05-31 16:00] LABS: PCP Screen Urine Negative (Negative)
[2025-05-31 16:10] LABS: Cholesterol 151 mg/dL (0-200); HDL Cholesterol 53 mg/dL (60-100); Magnesium 2.2 mg/dL (1.7-2.3); Thyroid Stimulating Hormone 1.96 uIU/mL (0.27-4.20); Triglycerides 101 mg/dL (0-150)
[2025-05-31] MEDS: SACUBITRIL/VALSARTAN 49-51 TABLET 1 EACH PO (18:02)
[2025-06-01] VITALS (87 sets, daily range): BP systolic 131–181; BP diastolic 86–147; PULSE 93–114; RESP 0–39; TEMP 36.1–37; O2SAT 70–98
--- NOTE | 2025-06-01 00:29 | PC.NURSE ---
Patient currently refusing to wear medical monitoring equipment. Pulled it off in his sleep and refusing to put it back on.
[2025-06-01] MEDS: pantoprazole 40 mg SDV IVP (05:23)
[2025-06-01] MEDS: SACUBITRIL/VALSARTAN 49-51 TABLET 1 EACH PO ×2 (05:23→16:38)
[2025-06-01 10:30] LABS: Hematocrit 45.4 % (37-53); Hemoglobin 15.20 g/dL (11.27-16.99); Mean Corpuscular HGB Conc 33.5 g/dL (30-55); Mean Corpuscular Hemoglobin 30.5 pg (27-33); Mean Corpuscular Volume 91.2 fl (82-101); Nucleated Red Blood Cells % 0 %; Platelet Count 364 10^3/cmm (157-399); Red Blood Count 4.98 10^6/uL (3.85-5.65); White Blood Count 10.70 10^3/uL (3.29-11.43)
[2025-06-01 10:46] LABS: Alanine Aminotransferase 22 U/L (0-41); Albumin Level 3.2 g/dL (3.5-5.2); Alkaline Phosphatase 71 U/L (40-130); Anion Gap 14.2 (5-19); Aspartate Amino Transferase 26 U/L (0-40); Blood Urea Nitrogen 18 mg/dL (6-20); Calcium 8.5 mg/dL (8.5-10.5); Carbon Dioxide 21 mmol/L (22-29); Chloride 104 mmol/L (98-107); Creatinine Clr Calc Pharmacy 81.1095; Globulin 3.2 g/dL (1.3-4.6); Glucose 136 mg/dL (65-115); Osmolality Calculated 284 mOsm/kg (285-295); Potassium 4.2 mmol/L (3.5-5.1); Sodium 135 mmol/L (136-145); Total Protein 6.4 g/dL (6.6-8.7)
--- NOTE | 2025-06-01 11:33 | PC.NURSE ---
physical therapy coordinator rounds at 1030- stroke education book is already bedside, pt recently given benzo for anxiety and was very drowzy, was given updates by primary RN.
--- NOTE | 2025-06-01 13:11 | PM.PN ---
Subjective Subjective: the patient was seen in the morning and was feeling better however emotional and little anxious as well which he further informs comes from his several other stressors of the life His vision has come back and currently has gotten better post TNK Vitals/I&O/Wt Last Vital Signs Temp 96.9 F L 06/01/25 08:30 Pulse 103 H 06/01/25 11:15 Resp 31 H 06/01/25 11:15 BP 149/115 06/01/25 11:00 Pulse Ox 95 06/01/25 11:15 O2 Del Method Room Air 06/01/25 10:00 05/31/25 06/01/25 06/01/25 22:59 06:59 14:59 Intake Total 300 / 300 1000 / 1300 300 / 300 Output Total 300 / 300 800 / 1100 Balance 0 / 0 200 / 200 300 / 300 Weight last 48 hrs Weight 90.8 kg Weight 90.718 kg Weight 90.718 kg Physical Exam Narrative: General: Alert and oriented, lying comfortably without any distress however he gets emotional on and off with tears about his life and world in general HEENT: Normocephalic, atraumatic, grossly unremarkable exam Cardio: normal rate rhythm, normal S1-S2 without any murmurs, rubs, or gallops and JVD normal Respiratory: normal vascular breathing on auscultation without any wheezes, stridor, rhonchi GI: Abdomen soft, nontender, nondistended, normoactive bowel sounds present all 4 quadrants, Neuro: Gross focal neurological examination unremarkable, left-sided inferior quadrantanopsia resolved. Normal gait and normal coordination Behavior: Appropriate and cooperative Extremities: Adequate palpable pulses, no edema or cyanosis observed Skin: grossly unremarkable exam Data 06/01/25 10:06 06/01/25 10:06 A&P Assessment and plan 1. Ischemic stroke: Ischemic stroke involving likely his right posterior cerebral artery based on the clinical presentation with left-sided inferior quadrantanopsia. 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 Other congestive heart failure: Patient blood pressure and heart rate uncontrolled Increase the dose of carvedilol to 12.5 mg twice daily Continue Entresto and hold losartan as he was at home which must not be continued with Entresto considering as Entresto carries the same ARB's Added amlodipine 10 mg for better blood pressure control Based on heart failure management, Farxiga 5 mg added to optimize his GDMT Maintain normal vitals 3. CKD (chronic kidney disease): Currently stable at baseline, continue to monitor renal functions and electrolytes with further correction accordingly 4. Vapes nicotine containing substance: Patient has been counseled about vaping and nicotine with adequate abstinence for better health 5. Primary hypertension: Discontinue losartan since patient is already taking Entresto Added amlodipine 10 mg and to monitor blood pressure 6. Anxiety: Patient has been provided adequate counseling and calming techniques Alprazolam as needed at night Lorazepam 1 mg as needed Q6 hourly Psych consulted for further management for his anxiety and stress PDMP PDMP Reviewed: Not Reviewed Attestations Medical Necessity Statement*: Patient will stay overnight since his medications have been adjusted and further management of his anxiety or stress with possible discharge tomorrow Time Spent in Patient Care: 16 - 35 minutes (>than 50% of time spent in counselling and/or direct pt care on unit). Other Attestations: Patient condition has been discussed at length with the patient/family, I have independently reviewed the chart labs imaging/diagnostics/EKG. the goals of care and code status with the patient/family/NOK/legal new accounts banking representative, and documented accordingly. The patient/family has been informed about the current condition and further plan of care. Agreed with the plan of care and understood without any language barrier. Every effort was made to ensure accuracy of medical transcription editor. Any obvious errors or omissions should be clarified with the author of the document. Coding Level of Care Code 31688 Diagnoses Ischemic stroke I63.9 Other congestive heart failure I50.9 Heart failure type: other CKD (chronic kidney disease) N18.9 Vapes nicotine containing substance Z72.0 Primary hypertension I10 Hypertension type: primary hypertension Anxiety F41.9
--- NOTE | 2025-06-01 13:16 | PC.NURSE ---
Mental Status: Patient is sleeping heavily, will awake with moderate stimulation, but quickly falls back asleep. Will answer all questions appropriately. COmpleted NIH and no deficits detected. protecting his airway. THough no immeadiate concerns, nurse would like to see the patient more alert. Patient was recently started on a new medicaion, lorazepam, 2mg po q4h. Nurse alerted Dr arndt to the above. Received orders to reduce the lorazepam order and continue monitoring.
--- NOTE | 2025-06-01 14:42 | PC.NURSE ---
Addendum entered by Mitch Obregon RN 06/01/25 17:12: At approximately 1700, patient has started to become more alert. More easily awoken, will maintain a conversation, but still slightly lethargic. Continues to be oriented to person, place, time and situation. Immediately upon waking patient asked if he can have xanax. Nurse explained to the patient that due to the recent poor mentation, it is not safe to give him a medication with potential sedating side effects. Patient indicated understanding. Tells me he wants to go home, nurse explained treatment plan, and desire for us to keep him overnight for blood pressure monitoring/control and patient was agreeable to this. Addendum entered by Mitch Obregon RN 06/01/25 14:54: Nurse called Dr arndt due to continued poor mentation. Received order for blood gas. Original Note: Physician rounding..... Dr galan came to round at 1435. Patient continue to sleep heavily, Will wake up but quickly falls back asleep. Nurse checked Blood sugar and it is 89. Still no focal deficits detected. Patient states that he is tired due to poor sleep last night and just wants to sleep.
--- NOTE | 2025-06-01 14:52 | USCV_ITS ---
Andry Del Cid Age: 50 Gender: M : 1975 Exam Date: 06/01/2025 14:54 Ordering Phys: Dave Jenkins MD Technologist: MOLLY Exam Location: [facility] – [place] Indication: Stroke work up BP: 165 / 138 HR: 103 Rhythm: Sinus Technical Quality: Adequate MEASUREMENTS (Male / Female) Normal Values 2D ECHO LV Diastolic Diameter PLAX 7.8 cm 4.2 - 5.9 / 3.9 - 5.3 cm IVS Diastolic Thickness 1.1 cm 0.6 - 1.0 / 0.6 - 0.9 cm IVS Systolic Thickness 1.5 cm LVPW Diastolic Thickness 1.0 cm 0.6 - 1.0 / 0.6 - 0.9 cm LVPW Systolic Thickness 1.3 cm LVOT Diameter 2.1 cm LV Ejection Fraction 2D Teich 23.7 % LV Ejection Fraction MOD 4C 25.3 % LV Ejection Fraction MOD 2C 26.3 % LV Ejection Fraction 2C AL 28.0 % LA Diameter 3.5 cm RA Systolic Volume 4C AL 88.7 ml RA Systolic Volume 4C MOD 87.1 ml LA Sys Volume AL 87.6 cm cubed LA Sys Volume Index AL 41.3 cm cubed/m squared Aorta at Sinotubular Diameter 3.1 cm IVC Diameter 2.0 cm M-MODE LA Ao Ratio MM 1.1 AV Cusp Separation MM 1.6 cm DOPPLER AV Peak Velocity 106.0 cm/s LVOT Peak Velocity 50.0 cm/s AV Area Cont Eq vti 1.4 cm squared AV Area Cont Eq pk 1.7 cm squared MV Peak Velocity 122.0 cm/s MV Area PHT 9.0 cm squared Mitral E to A Ratio 3.4 TV Peak Velocity 122.5 cm/s TR Peak Velocity 179.0 cm/s TR Peak Gradient 12.8 mmHg TV Peak E Velocity 48.0 cm/s PV Peak Velocity 57.0 cm/s FINDINGS Left Ventricle Moderately increased left ventricular cavity size. Severely decreased left ventricular systolic function. Left ventricular ejection fraction is estimated at 25 %. Global left ventricular hypokinesis. Grade III/IV diastolic dysfunction (restrictive filling pattern), severely elevated filling pressures. Right Ventricle Normal right ventricular size and systolic function. Right Atrium Normal right atrial size. Left Atrium Normal left atrial size. IA Septum Normal appearance of the interatrial septum. Mitral Valve Structurally normal mitral valve. No mitral valve stenosis. Moderate mitral valve regurgitation. Aortic Valve Mild aortic valve calcification. No aortic valve stenosis. Trace aortic valve regurgitation. Tricuspid Valve Normal tricuspid valve structure. No tricuspid valve stenosis or regurgitation. Normal pulmonary pressure. Pulmonic Valve Normal pulmonic valve structure. No pulmonic valve stenosis or regurgitation. Pericardium No pericardial effusion. Aorta Normal diameter of the aortic root and ascending thoracic aorta. IVC Normal IVC diameter. CONCLUSIONS Moderately increased left ventricular cavity size. Severely decreased left ventricular systolic function. Left ventricular ejection fraction is estimated at 25 %. Global left ventricular hypokinesis. Grade III/IV diastolic dysfunction (restrictive filling pattern), severely elevated filling pressures. Structurally normal mitral valve. No mitral valve stenosis. Moderate mitral valve regurgitation. There is no pericardial effusion. Right atrial pressure is around 5 mm of mercury. Alvarez Rivas MD (Electronically Signed) Final Date: 02 June 2025 19:18 S
[2025-06-01 15:19] LABS: ABG PCO2 31.5 mmHg (35-45); ABG PH Result 7.46 (7.35-7.45); Alveolar-Arterial Oxygen Gradi 7.6 mmHg (5-10); Arterial Blood Gas Hematocrit 50.9 % (42-52); Blood Gas Allen Test Pos; Blood Gas Operator Identificat GD; Blood Gas Sample Site Radial, left; Blood Gas Sample Type Arterial; Carboxyhemoglobin 0.9 %THgb (0.4-20.1); Glucose Level-ABG 101.0 mg/dL (70-115); HCO3 ABG 22.6 mmol/L (22-26); Ionized Calcium Level - ABG 1.2 mmol/L (1.1-1.4); Methemoglobin 0.9 % (0.4-1.5); Oxygen Saturation ABG 95.7; PO2 ABG 71.9 mmHg (80.0-100.0); PO2 FiO2 Ratio Arterial Blood 299; Potassium Level - ABG 4.0 mmol/L (3.5-5.0); Sodium Level - ABG 139.0 mmol/L (131-143)
--- NOTE | 2025-06-01 17:22 | PC.NURSE ---
SHift SUmmary: Uneventful shift. Patient worked with PT and was up to a chair for about an hour. Other than that he spent most of the day sleeping in bed. Mentation: Frequently lethargic throughout the day, but by end of shift he has become more awake and alert. Remains oriented to person, place, time, and situation. Lorazepam dose reduced. Stroke: Scores 0 on NIH. Vision has returned to normal.
--- NOTE | 2025-06-01 21:29 | PC.NURSE ---
At shift change patients life partner called and told air sampling and monitoring, Lisa, that she needed the patient to call her immediately due to an emergency. During bedside report patient received a call from life partner and it appeared patient was distraught. He continued to take numerous phone calls. At approximately 2114 this nurse was notified by Gosia Sinclair RN that patient wished to leave AMA and was up, dressed, and had all medical equipment removed. This nurse went into patients room to talk to patient and assess the situation. Patient was visibly distraught, swearing on the phone, and stating I have to leave my girl just got locked up. I asked patient orientation questions, he was A&O (4) He was able to tell me name, , year, that he drove himself to the ED and was diagnosed with a stroke and has chronic uncontrolled hypertension. He stated I am leaving no matter what when my ride gets here. I asked patient if he would sit down for a moment and allow me to notify the physician. . Provider came to bedside, patient was on the phone and would not acknowledge provider. Provider asked patient for a few moments to discuss the situation. Security also present, JR Sinclair. Provider asked patient why he admitted, if he was aware of risk of leaving, including minor complications all the way to possibly . Patient stated he knew he understood the risks, he knew he had a stroke and his blood pressure was not under control, but he had to leave and would come back to the ED for readmission after he handled the situation with his life partner and a personal vehicle of his that was apparently being towed. Provider discussed AMA paperwork with patient and he signed it stating he has left AMA previously. Patient asked this nurse what do I tell them in the ER when I come back? This nurse stated, tell them you recently had a stroke, left ama, and were still being treated for uncontrolled hypertension. Patient IV site examined and IV catheter was intact. Patient stated he had all personal belongings and was escorted out by security incident response specialist, JR Sinclair. He stated numerous times he would be back to the ED.
--- NOTE | 2025-06-01 21:31 | PM.MISC ---
Miscellaneous Note Purpose of Documentation: Patient left AGAINST MEDICAL ADVICE Note: I have been called that the patient is leaving AGAINST MEDICAL ADVICE patient had been here for CVA and with extreme hypertension. And I have been told that this patient was supposed to have been discharged today but because of the blood pressure needing further optimization prior to discharge patient was kept today hopefully to follow through with interval improvement of blood pressure. Patient refused to stay and signed paper for AGAINST MEDICAL ADVICE actually before the time patient had ripped off all his IV access. I was called to come and talk to the patient. I have arrived in ICU room 6 this is a patient of Dr. Germain, trying to talk him into staying and that trying to let him know the dangers of not controlling the blood pressure that he might come back in a very big extensive stroke and he said he is going home this is an emergency and that he will come back once he gets settled in with his emergency. Patient signed patient is alert awake oriented x 3. He signed himself out AGAINST MEDICAL ADVICE l
== END 2025-06-01 21:30 | disposition left against medical advice (07) | DRG 62 ==
LOC: ER 10:04 → ICU 10:17
PROVIDERS: Admitting Provider Student in an Organized Health Care Education/Training Program; Emergency Provider Emergency Medicine; Visit Provider Student in an Organized Health Care Education/Training Program
DX: I63.431 Cerebral infarction due to embolism of right posterior cerebral artery (principal); I13.0 Hypertensive heart and chronic kidney disease with heart failure and stage 1 through stage 4 chronic kidney disease, or unspecified chronic kidney disease; H53.8 Other visual disturbances; Z53.29 Procedure and treatment not carried out because of patient's decision for other reasons; I50.9 Heart failure, unspecified; N18.9 Chronic kidney disease, unspecified; F17.290 Nicotine dependence, other tobacco product, uncomplicated; F41.9 Anxiety disorder, unspecified
CPT/HCPCS: 36415; 36416; 36600; 70450; 71045; 80051; 80053; 80061; 80306; 81001; 82330; 82805; 82962; 83036; 83735; 84443; 85025; 85610; 85730; 92523; 92610; 93005; 93306; 96374; 97161; 97165; 99291; J2470; J3101; J7030; J9999

== ENCOUNTER 2025-06-04 07:18 | Observation (INO) | payer OTHER, SELFPAY ==
[2025-06-04] VITALS (11 sets, daily range): BP systolic 137–160; BP diastolic 77–123; PULSE 87–103; RESP 16–17; TEMP 36.4–36.8; O2SAT 95–97; BMI 26.6; BMI 31.2
--- NOTE | 2025-06-04 07:23 | CT_ITS ---
WS: [id number] CT HEAD NONCONTRAST HISTORY: Recent stroke TECHNIQUE: Contiguous axial imaging performed through the brain. Bone and soft tissue windows. Sagittal and coronal reformats reviewed. All CT scans at [facility] use at least one of these dose optimization techniques: automated exposure control; mA and/or kV adjustment per patient size (includes targeted exams where dose is matched to clinical indication); or iterative reconstruction. DLP: 1156.08 mGy.cm COMPARISON: 05/31/2025 No acute intracranial hemorrhage, midline shift or mass effect. Mild atrophy and small vessel disease. There are a few very subtle areas of low- attenuation in the periventricular white matter. Ventricles: Normal variant cavum septum vergae. No inferior displacement the cerebellar tonsils. Significant beam hardening artifact near the ruben, closely related to the LEFT vertebral artery. Paranasal sinuses: Mucoperiosteal thickening in the maxillary sinuses. No air- fluid levels. Mastoid air cells: Well pneumatized. Calvarium and scalp: Intact calvarium. Benign partially calcified subcutaneous nodule measuring 2.0 cm posterior to the RIGHT occipital bone. CT/CT head wo con* [id number] IMPRESSION: 1. No acute intracranial hemorrhage or edema. 2. Mild atrophy and very minimal small vessel disease. No definite acute infar ct is identified.
--- NOTE | 2025-06-04 07:50 | CT_ITS ---
WS: [id number] CT ANGIOGRAM CEREBRAL AND CAROTID ARTERIES HISTORY: Recent stroke TECHNIQUE: CT angiogram is performed of the carotid and cerebral arteries. During arterial injection imaging is obtained from the skull vertex to the aortic arch in 1.25 mm imaging. Coronal and sagittal reformats are submitted. Additional multi planar reformats of the carotid and cerebral arteries are submitted, MIP imaging also reviewed. NASCET criteria utilized. All CT scans at [facility] use at least one of these dose optimization techniques: automated exposure control; mA and/or kV adjustment per patient size (includes targeted exams where dose is matched to clinical indication); or iterative reconstruction. CONTRAST: Omnipaque 350; 100 mL IV. DLP: 484.62 mGy.cm COMPARISON: None available. Carotid Angiogram: Right carotid: Common carotid artery: Arises normally from the innominate artery. No significant plaque or stenosis. Internal carotid artery: Minimal plaque at the bifurcation. External carotid artery: Patent. Left carotid: Common carotid artery: Arises normally from the aorta. No significant plaque or stenosis. Internal carotid artery: Short segment stent in the LEFT ICA. Stent is patent. External carotid artery: Patent. Right vertebral artery: Unremarkable. Left vertebral artery: Very tiny amount of flow noted in the proximal LEFT vertebral artery. Vertebral arteries occluded beginning in the mid to upper cervical spine. Artifact from prior coiling in the distal LEFT vertebral artery at the foramen magnum. Subclavian arteries: No stenosis or significant abnormality. Upper thorax: Normal. Thyroid gland: Normal. Osseous structures: Mild cervical spondylosis. CEREBRAL ANGIOGRAM: Intracranial vertebral arteries: Patent distal RIGHT vertebral artery. Occluded distal LEFT vertebral artery. Basilar artery: No significant stenosis or occlusion. No aneurysm. Intracranial Internal carotid arteries: Limited contrast opacification through the petrous carotid arteries in the cavernous carotid arteries due to injection. No occlusions identified. No thrombus is appreciated. Middle cerebral arteries: No large central emboli or occlusion of the middle cerebral arteries. There is a paucity of vessels in the mid LEFT M2 segment. This is asymmetric to the RIGHT. Anterior cerebral arteries and ACOM: Normal. Posterior cerebral arteries and PCOM's: Posterior cerebral arteries are patent. Small caliber distal P2 segments. No occlusion identified. Dural venous sinuses are normally enhancing. Mastoid air cells: Normal. Paranasal sinuses: Mucoperiosteal disease. Calvarium: Normal. CT/CT angio headneck* [id number] IMPRESSION: 1. Patent bilateral cervical carotid arteries. 2. Patent short stent LEFT ICA. 3. Short segment paucity of vessels in the mid LEFT M2 segment. No thrombus id entified. Correlate with area of ischemia. 4. Very small caliber and partially occluded LEFT vertebral artery.
--- NOTE | 2025-06-04 07:51 | XR_ITS ---
WS: [id number] Exam: XR chest 1V portable [id number] Date/Time of Exam: 06/04/2025 7:53 AM Reason For Exam: dyspnea/cough Comparison 05/31/2025. Lungs are fully expanded. No consolidated infiltrates. Cardiac enlargement unchanged. No pleural effusions or pneumothorax. The mediastinum is normal in contour. Bony elements appear normal. XR/XR chest 1V portable [id number] IMPRESSION: 1. No acute cardiopulmonary finding. Stable cardiomegaly
--- NOTE | 2025-06-04 07:52 | ED_ITS ---
HPI - Neuro Symptoms/Deficit 2 General: Chief Complaint: Neuro Symptoms/Deficit Stated Complaint: unable to speak Time Seen by Provider: 06/04/25 07:23 History of Present Illness: 50-year-old male presents to the emergen cy room he is unable to speak. He was here 4 days ago was thought to have a posterior stroke with visual deficit and was given TNKase after evaluation by neurology. Was monitored as an inpatient in the ICU his blood pressure is elevated he was doing further evaluated due to his hypertension he ended up leaving [place]. He arrives back here he still has his IV in place evidently when he left it was not removed. The attending physician had documented that they tried to convince him to stay. He follows commands when he arrives here but is not responsive to any verbal inquiries. He does not contribute at all to his history he has no focal neurologic deficits. Reviewed chart from previous hospitalization. Related Data Home Medications ?Medication ?Instructions ?Recorded ?Confirmed acetaminophen 500 mg tablet 500 mg PO QID PRN Fever Or Pain 05/31/25 06/04/25 (Tylenol Extra Strength) Allergies Allergy/AdvReac Type Severity Reaction Status Date / Time No Known Allergies Allergy Verified 02/05/25 10:11 Review of Systems 2 General: Reports: Other (Patient noncommunicative) PFSH ED 2 PFSH: Medical History Vapes nicotine containing substance HTN (hypertension) Cluster headache Social History Smoking and tobacco/nicotine status: former use of tobacco/nicotine Alcohol intake: never Substance/Drug Use: current Substance/Drug use frequency: Special occassions/opportunity only NIH stroke score 2 NIHSS: Level Of Consciousness - 1a: 2 Level Of Consciousness Questions - 1b: Neither Correct Level Of Consciousness Commands - 1c: Both Correct B est Gaze - 2: Normal Visual Desai - 3: No Visual Loss Facial Palsy - 4: N ormal Motor Arm Right - 5: No Drift Motor Arm Left - 5: No Drift Motor Leg Right - 6: No Drift Motor Leg Left - 6: No Drift Limb Ataxia - 7: A bsent Sensory - 8: Normal Best Language - 9: Mute; Global Aphasia D ysarthia - 10: Severe Dysarthia Extinction And Inattention - 11: 0 Score: Total Score: 9 Physical Exam 2 HENMT: COMMON NORMALS: normocephalic, atraumatic and hearing grossly normal bilaterally HEAD & SCALP: normocephalic and atraumatic Resp: COMMON NORMALS: normal respiratory effort, No retractions, No use of accessory muscles and clear to auscultation bilaterally AUSCULTATION: clear to auscultation bilaterally Cardio: COMMON NORMALS: regular rate, regular rhythm and No murmurs present (Cardio) RATE: regular rate RHYTHM: regular rhythm GI: COMMON NORMALS: Soft to palpation and No hepatosplenomegaly present A USCULTATION: Yes normoactive bowel sounds PALPATION: Yes Soft to palpation, No Tenderness to palpation present (GI), No Guarding due to palpation present (GI) and Yes No hepatosplenomegaly present Extremity: COMMON NORMALS: normal to inspection, capillary refill normal, no clubbing, cyanosis or edema, no calf tenderness and no pedal edema Skin: COMMON NORMALS: no rashes or lesions noted GENERAL SKIN EXAM: no rashes or lesions noted Course 2 Vital Signs: Vital signs: Vital Signs Temperature 97.6 F 06/04/25 15:44 Pulse Rate 87 06/04/25 15:44 Respiratory Rate 17 06/04/25 15:44 Blood Pressure 137/77 06/04/25 15:44 Pulse Oximetry 95 06/04/25 15:44 Oxygen Delivery Me thod Room Air 06/04/25 13:20 MDM - Neuro Symptoms/Deficit Medical Decision Making Initial NIH is 9 primarily as patient is completely mute this resolved completely and he is following commands again. Patient is not a candidate for TNK since he just received it a few days ago and he is able recrudescence of the stroke that he had previously he is already resolved when he left [facility] he did not get any of his medications. He will be readmitted for the same stroke symptoms he had previously he has had resolution of them now. CTA was done and there is no embolism. Discussed with Dr. Fitzgerald she concurs will admit to hospitalist orders written Medical Records I reviewed the patient's medical records. Lab Data I reviewed the patient's lab results. 06/04/25 07:48 06/04/25 07:[address] 06/04/25 07:23 IMPRESSION: 1. No acute intracranial hemorrhage or edema. 2. Mild atrophy and very minimal small vessel disease. No definite acute infarct is identified. Head/Neck CTA 06/04/25 07:50 IMPRESSION: 1. Patent bilateral cervical carotid arteries. 2. Patent short stent LEFT ICA. 3. Short segment paucity of vessels in the mid LEFT M2 segment. No thrombus identified. Correlate with area of ischemia. 4. Very small caliber and partially occluded LEFT vertebral artery. Chest X-Ray 06/04/25 07:51 IMPRESSION: 1. No acute cardiopulmonary finding. Stable cardiomegaly Laboratory Results WBC 11.39 10^3/uL (3.29-11.43) 06/04/25 07:48 RBC 5.13 10^6/uL (3.85-5.65) 06/04/25 07:48 Hgb 15.70 g/dL (11.27-16.99) 06/04/25 07:48 Hct 45.9 % (37-53) 06/04/25 07:48 MCV 89.5 fl (82-101) 06/04/25 07:48 MCH 30.6 pg (27-33) 06/04/25 07:48 MCHC 34.2 g/dL (30-55) 06/04/25 07:48 RDW 13.7 % (12.1-15.1) 06/04/25 07:48 Plt Count 332 10^3/cmm (157-399) 06/04/25 07:48 MPV 10.4 fL (7.4-10.4) 06/04/25 07:48 Neut % (Auto) 76.9 % 06/04/25 07:48 Lymph % (Auto) 11.4 % 06/04/25 07:48 [place] % (Auto) 9.6 % 06/04/25 07:48 Eos % (Auto) 1.0 % 06/04/25 07:48 Baso % (Auto) 0.6 % 06/04/25 07:48 Neut # (Auto) 8.76 10^3/uL (1.8-7.7) H 06/04/25 07:48 Lymph # (Auto) 1.3 10^3/uL (0.8-4.8) 06/04/25 07:48 [place] # (Auto) 1.1 10^3/uL (0.2-0.9) H 06/04/25 07:48 Eos # (Auto) 0.1 10^3/uL (0.0-0.8) 06/04/25 07:48 Baso # (Auto) 0.1 10^3/uL (0.0-0.1) 06/04/25 07:48 Nucleated RBC % (auto) 0 % 06/04/25 07:48 Nucleated RBCs # 0.0 /100WBC 06/04/25 07:48 Specimen Type Arterial 06/04/25 08:41 Sample Site Radial, left 06/04/25 08:41 ABG pH 7.45 (7.35-7.45) 06/04/25 08:41 ABG pCO2 35.4 mmHg (35-45) 06/04/25 08:41 ABG pO2 79.2 mmHg (80.0-100.0) L 06/04/25 08:41 ABG PO2/FiO2 Ratio 377 06/04/25 08:41 ABG HCO3 24.6 mmol/L (22-26) 06/04/25 08:41 ABG O2 Saturation 96.5 06/04/25 08:41 ABG Base Excess 1.0 mmol/L (-2.0-2.0) 06/04/25 08:41 [place] Test Pos 06/04/25 08:41 A-a O2 Gradient 3.4 mmHg (5-10) L 06/04/25 08:41 Hematocrit 43.3 % (42-52) 06/04/25 08:41 Hgb O2 Saturation 95.2 % (95-100) 06/04/25 08:41 Carboxyhemoglobin 1.1 %THgb (0.4-20.1) 06/04/25 08:41 Methemoglobin 0.2 % (0.4-1.5) L 06/04/25 08:41 Total Hemoglobin 14.1 g/dL (14-18) 06/04/25 08:41 Sodium 136.0 mmol/L (131-143) 06/04/25 08:41 Potassium 3.4 mmol/L (3.5-5.0) L 06/04/25 08:41 Glucose 121.0 mg/dL (70-115) H 06/04/25 08:41 Ionized Calcium 1.1 mmol/L (1.1-1.4) 06/04/25 08:41 O2 Delivery Device Room air 06/04/25 08:41 FiO2 21.0 % 06/04/25 08:41 Patient Services Coordinator ID Mike 06/04/25 08:41 Sodium 136 mmol/L (136-145) 06/04/25 07:48 Potassium 3.7 mmol/L (3.5-5.1) 06/04/25 07:48 Chloride 98 mmol/L (98-107) 06/04/25 07:48 Carbon Dioxide 23 mmol/L (22-29) 06/04/25 07:48 Anion Gap 18.7 (5-19) 06/04/25 07:48 BUN 19 mg/dL (6-20) 06/04/25 07:48 Creatinine 1.2 mg/dL (0.7-1.2) 06/04/25 07:48 GFR Calculation 63.8 mL/min (90-130) L 06/04/25 07:48 Glucose 143 mg/dL (65-115) H 06/04/25 07:48 Calculated Osmolality 287 mOsm/kg (285-295) 06/04/25 07:48 Lactic Acid 1.6 mmol/L (0.5-2.2) 06/04/25 07:48 Calcium 9.0 mg/dL (8.5-10.5) 06/04/25 07:48 Total Bilirubin 1.3 mg/dL (0.15-1.2) H 06/04/25 07:48 AST 28 U/L (0-40) 06/04/25 07:48 ALT 31 U/L (0-41) 06/04/25 07:48 Alkaline Phosphatase 96 U/L (40-130) 06/04/25 07:48 Total Protein 6.9 g/dL (6.6-8.7) 06/04/25 07:48 Albumin 3.8 g/dL (3.5-5.2) 06/04/25 07:48 Globulin 3.1 g/dL (1.3-4.6) 06/04/25 07:48 Salicylates < 0.3 mg/dL (3-10) L 06/04/25 07:48 Acetaminophen < 5.0 ug/mL (10-30) L 06/04/25 07:48 Ethyl Alcohol < 10 mg/dL (0-10) 06/04/25 07:48 All radiology interpretation(s) finalized by discharge EKG Data EKG 1: I personally reviewed and interpreted this EKG as follows: Interpretation: EKG 06/04/2025 8:53 AM sinus rhythm first-degree AV block rate of 90. [place] [address] No acute ST changes noted compared to EKG 05/31/2025 first-degree block is now present Discharge Plan Discharge Patient Disposition: Admitted As Inpatient Admit Provider: Frandy Armstrong Clinical Impression: Ischemic stroke, Vapes nicotine containing substance HTN (hypertension) Qualifiers: Hypertension type: primary hypertension Qualified Code(s): I10 - Essential (primary) hypertension Condition: Stable Coding Level of Care Code ED Painter And Decorator for Rony Maldonado
[2025-06-04 07:54] LABS: Hematocrit 45.9 % (37-53); Hemoglobin 15.70 g/dL (11.27-16.99); Mean Corpuscular HGB Conc 34.2 g/dL (30-55); Mean Corpuscular Hemoglobin 30.6 pg (27-33); Mean Corpuscular Volume 89.5 fl (82-101); Nucleated Red Blood Cells % 0 %; Platelet Count 332 10^3/cmm (157-399); Red Blood Count 5.13 10^6/uL (3.85-5.65); White Blood Count 11.39 10^3/uL (3.29-11.43)
[2025-06-04 08:15] LABS: Alanine Aminotransferase 31 U/L (0-41); Albumin Level 3.8 g/dL (3.5-5.2); Alkaline Phosphatase 96 U/L (40-130); Anion Gap 18.7 (5-19); Aspartate Amino Transferase 28 U/L (0-40); Blood Urea Nitrogen 19 mg/dL (6-20); Calcium 9.0 mg/dL (8.5-10.5); Carbon Dioxide 23 mmol/L (22-29); Chloride 98 mmol/L (98-107); Creatinine Clr Calc Pharmacy 77.3381; Globulin 3.1 g/dL (1.3-4.6); Glucose 143 mg/dL (65-115); Osmolality Calculated 287 mOsm/kg (285-295); Potassium 3.7 mmol/L (3.5-5.1); Sodium 136 mmol/L (136-145); Total Protein 6.9 g/dL (6.6-8.7)
[2025-06-04 08:16] LABS: Lactic Sepsis W/Reflex 1.6 mmol/L (0.5-2.2)
[2025-06-04] MEDS: iohexol 350 mg/mL 500 mL Btl (per mL) IV (08:41)
--- NOTE | 2025-06-04 08:53 | ECG_ITS ---
[facility] Test Date: 2025-06-04 Pat Name: Andry Del Cid Department: Room: Gender: Male Paper Spooler: : 1975 Requested By: Sravan Franco Order Number: [id number] Julian MD: Rashard Curran M.D. Measurements Intervals [place] Rate: 90 P: 72 AL: 213 QRS: -68 QRSD: 118 T: 106 QT: 426 QTc: 523 Interpretive Statements SINUS RHYTHM WITH FIRST DEGREE AV BLOCK LEFT ATRIAL ENLARGEMENT [-0.15mV P-WAVE IN V1/V2] LEFT AXIS DEVIATION [QRS AXIS < -30] INCOMPLETE RIGHT BUNDLE BRANCH BLOCK [90+ ms QRS DURATION, TERMINAL R IN V1/V2, 40+ ms S IN I/aVL/V4/V5/V6] POSSIBLE LEFT VENTRICULAR HYPERTROPHY [VOLTAGE CRITERIA PLUS LAE OR QRS WIDENING] POSSIBLE OLD SEPTAL INFARCTION MODERATE T-WAVE ABNORMALITY, CONSIDER LATERAL ISCHEMIA [-0.1+ mV T-WAVE IN I/aVL/V5/V6] Compared to ECG 05/31/2025 08:50:10 NO SIGNIFICANT CHANGE Electronically Signed On 06-06-2025 20:42:56 CDT by Rashard Curran M.D. [email or web address]
[2025-06-04 08:55] LABS: ABG PCO2 35.4 mmHg (35-45); ABG PH Result 7.45 (7.35-7.45); Alveolar-Arterial Oxygen Gradi 3.4 mmHg (5-10); Arterial Blood Gas Hematocrit 43.3 % (42-52); Blood Gas Allen Test Pos; Blood Gas Operator Identificat MONRO; Blood Gas Sample Site Radial, left; Blood Gas Sample Type Arterial; Carboxyhemoglobin 1.1 %THgb (0.4-20.1); Glucose Level-ABG 121.0 mg/dL (70-115); HCO3 ABG 24.6 mmol/L (22-26); Ionized Calcium Level - ABG 1.1 mmol/L (1.1-1.4); Methemoglobin 0.2 % (0.4-1.5); Oxygen Saturation ABG 96.5; PO2 ABG 79.2 mmHg (80.0-100.0); PO2 FiO2 Ratio Arterial Blood 377; Potassium Level - ABG 3.4 mmol/L (3.5-5.0); Sodium Level - ABG 136.0 mmol/L (131-143)
[2025-06-04 09:20] LABS: Acetaminophen < 5.0 ug/mL (10-30); Alcohol Level < 10 mg/dL (0-10); Salicylate < 0.3 mg/dL (3-10)
--- NOTE | 2025-06-04 09:45 | PC.PHAR ---
PAtient states he is not taking any medication . PATIENT states he has no prescriptions.
--- NOTE | 2025-06-04 10:29 | PC.NURSE ---
PT ABLE TO SWALLOW WATER APPROPRIATELY.
--- NOTE | 2025-06-04 11:44 | PC.NURSE ---
technical services coordinator rounds at 0830- met up with pt in CT and brought him back to room in ED. Pt was tearful. After we arrived back in his room he was able to say yeah and no to my questions and shortly after was able to talk more easily and tell me about what was upsetting him.
--- NOTE | 2025-06-04 12:30 | PC.NURSE ---
PT NOT COOPERATING WITH VITALS. PT REFUSING TO CHANGE INTO GOWN. PT USING PROFANITY WHILE STATING HE DOES NOT WANT TO BE HERE.
--- NOTE | 2025-06-04 13:21 | P.HP_ITS ---
Providers/Chief Complaint 2 Admitting Physician: Frandy Armstrong Chief Complaint: unable to speak History of Present Illness Andry Del Cid is a 50 year old male with recent hospitalization for acute stroke (received tenecteplase [TNK] on May 31) who left the hospital against medical advice prior to completion of workup. He returned to the emergency department this morning after developing sudden inability to speak while driving around 6:30 a.m. Symptoms have fluctuated and included facial numbness and difficulty using a hand; he also reports one foot went numb while driving but function returned. States numbness persists mildly but he can feel everything. Reports episodes of shortness of breath recently and took a ?water pill? he had at home. Denies leg swelling. Denies fever, chills, vomiting, diarrhea, dysuria, blood in urine or stool, black stools, rashes. Reports a recent bronchitis with severe cough that has since resolved. Denies current cough. No difficulty swallowing reported; tolerated water without coughing. He is not taking routine home medications because he is unsure which ones to take. Review of Systems 2 Const: Denies: fever(s), chills, body aches or malaise ENMT: Denies: throat pain Card: Denies: chest pain, edema, pre-syncope or dyspnea on exertion Resp: Denies: dyspnea, productive cough, change in phlegm color or hemoptysis GI: Denies: abdominal pain, nausea, vomiting, diarrhea, constipation, hematochezia or melena : Denies: flank pain, difficulty urinating, urinary frequency or hematuria Musc: Denies: back pain, joint swelling or joint redness Skin/Breast: Denies: rash or new lesions Neuro: Reports: numbness in extremities and difficulty communicating thoughts (pre-admit); Denies: headache(s) or confusion Medications/Allergies Home Medications ?Medication ?Instructions ?Recorded ?Confirmed ?Last Taken ?Type acetaminophen 500 mg tablet 500 mg PO QID PRN Fever Or Pain 05/31/25 06/04/25 Unknown History (Tylenol Extra Strength) Allergies Allergy/AdvReac Type Severity Reaction Status Date / Time No Known Allergies Allergy Verified 02/05/25 10:11 PFSH Acute 2 PFSH: Medical History Pulmonary nodule 1 cm or greater in diameter CKD (chronic kidney disease) Nonischemic cardiomyopathy EF 25% CHF (congestive heart failure) Vapes nicotine containing substance HTN (hypertension) Cluster headache Social History Smoking and tobacco/nicotine status: former use of tobacco/nicotine Alcohol intake: never Substance/Drug Use: current Substance/Drug use frequency: Special occassions/opportunity only Other substance/drug use details: Denies Vitals/I&O/Wt Last Vital Signs Temp 98.2 F 06/04/25 07:23 Pulse 94 06/04/25 13:06 Resp 16 06/04/25 07:23 BP 160/123 06/04/25 13:06 Pulse Ox 95 06/04/25 13:06 O2 Del Method Room Air 06/04/25 07:23 06/03/25 06/04/25 06/04/25 22:59 06:59 14:59 Intake Total 1000 / 1000 Balance 1000 / 1000 Weight last 48 hrs Weight 81.647 kg Physical Exam 2 Narrative: Awake and alert, conversant, interacting and following directions. Sitting up at the edge of the bed. Const: COMMON NORMALS: patient oriented x3 and alert GENERAL APPEARANCE: c ooperative ORIENTATION/CONSCIOUSNESS: Yes awake HENMT: COMMON NORMALS: oropharynx normal Neck/C-Spine: COMMON NORMALS: no JVD Resp: COMMON NORMALS: normal respiratory effort and clear to auscultation bilaterally AUSCULTATION: clear to auscultation bilaterally Cardio: COMMON NORMALS: no JVD, regular rhythm, S1 normal heart sound present, S2 normal heart sound present and No murmurs present (Cardio) RHYTHM: r egular rhythm HEART SOUNDS: S1 normal heart sound present and S2 normal heart sound present GI: COMMON NORMALS: Normal to inspection, nondistended, normoactive bowel sounds present, Soft to palpation and non-tender PALPATION: Yes Soft to palpation Extremity: COMMON NORMALS: no joint enlargement and no pedal edema Neuro: COMMON NORMALS: patient oriented x3 and moves all extremities S ENSORIUM/ORIENTATION: Yes alert OTHER: He is awake and alert, following directions without difficulty. Minimal if any right-sided facial droop. No aphasia or dysarthria. No difficulty with horizontal tracking. Visual garcia full to confrontation, without visual extinction. No difficulty with FNF. Sensory exam with mild decrease sensation on the right face and upper extremity. Without sensory extinction. No upper or lower extremity drift. Skin: COMMON NORMALS: no rashes or lesions noted GENERAL SKIN EXAM: no rashes or lesions noted Data 06/04/25 07:48 06/04/25 07:48 Micro: Microbiology 06/04/25 10:05 Blood Culture - Preliminary Blood SPECIMEN COLLECTED 06/04/25 08:10 Blood Culture - Preliminary Blood SPECIMEN COLLECTED A&P Assessment and plan 1. Ischemic stroke: Recent acute ischemic stroke, with possibly stuttering clinical course and/or additional recurrence given prior discharge AGAINST MEDICAL ADVICE. Is not on tablet atorvastatin. Symptoms since early this morning around 5 or 530. Outside the window for intervention. CTA reviewed, without large vessel occlusion. Discussed with ED provider, ED provider note reviewed. Reviewed vitals, CBC, ABG, CMP, head CT, head and neck CTA, chest x-ray. Aphasia at presentation with resolution in ED; reports mild right-sided facial numbness, right hand numbness. Resolving numbness of the left lower extremity. Bedside neuro exam otherwise non-focal. Reviewed prior assessment with TTE, noted cardiomyopathy EF 25%. Reviewed recent assessment with A1c and lipid panel. A1c 5.4, total cholesterol 151, LDL 78, HDL 53; chemistry. - Administer aspirin and clopidogrel (Plavix) now. Monitor for risk of bleeding. - Resume statin therapy - Permissive hypertension for now; monitor blood pressure and aim to improve within ~24 hours - Monitor on telemetry to assess for atrial fibrillation - Speech therapy assessment - PT and OT - Hospitalize for telemetry monitoring - Needs PCP. CM consult. Plan: Paresthesias (facial, hand, foot) : Patient reports intermittent facial and hand numbness, and transient foot numbness while driving; able to feel to light touch on exam. - Monitor neurological symptoms during hospitalization - Speech therapy assessment - Resume stroke treatment as above. Congestive heart failure with reduced ejection fraction : Echocardiogram showed ejection fraction 25%, grade 3 diastolic dysfunction, moderate mitral regurgitation with worsening compared to September; non-ischemic cardiomyopathy; previously wore LifeVest. - Hold blood pressure medications for now due to stroke context (permissive hypertension) - Long-term blood pressure target 120/80 or lower - Resume carvedilol and losartan shelter (not during immediate permissive hypertension phase) - Cardiology follow-up for reassessment and referral for implantable cardioverter-defibrillator (ICD) Hypertension : History of hypertension; transient permissive hypertension during stroke management; recent challenges controlling blood pressure. - Permissive hypertension for now - Long-term goal blood pressure 120/80 or lower - Resume carvedilol and losartan roasterman (timing to be determined after acute period) - Monitor blood pressure closely during hospitalization Non-ischemic cardiomyopathy : Documented on prior cardiology visit; EF ~25%; previously wore LifeVest. - Cardiology follow-up for reassessment and referral for ICD Anxiety/stress : Patient reports chronic anxiety and high stress; inquired about benzodiazepines (Xanax). - Refer to behavioral health for evaluation and management of chronic anxiety - Benzodiazepines (Xanax) not first-line due to side effects, tolerance, and addiction potential (discussion documented) - Consider buspirone, SSRI Follow-up : Needs completion of prior unfinished inpatient monitoring and specialty follow-up. - Hospitalize to complete telemetry and monitoring - Cardiology follow-up for ICD consideration - Behavioral health referral PDMP PDMP Reviewed: Not Reviewed Attestations 2 Medical Necessity Statement*: Place in observation for additional assessment management of possible progression of CVA/possible recurrent CVA having recently left prematurely after treatment of acute CVA. Diagnoses Ischemic stroke I63.9
[2025-06-05] VITALS: BP 155/82; PULSE 90; RESP 17; TEMP 36.8; O2SAT 95
[2025-06-05 04:00] VITALS: BP 162/79; PULSE 86; RESP 17; TEMP 37; O2SAT 94
[2025-06-05 05:13] VITALS: PULSE 104
[2025-06-05 05:47] LABS: Alanine Aminotransferase 26 U/L (0-41); Albumin Level 3.7 g/dL (3.5-5.2); Alkaline Phosphatase 90 U/L (40-130); Blood Urea Nitrogen 17 mg/dL (6-20); Calcium 9.0 mg/dL (8.5-10.5); Carbon Dioxide 21 mmol/L (22-29); Chloride 99 mmol/L (98-107); Creatinine Clr Calc Pharmacy 90.7301; Globulin 2.9 g/dL (1.3-4.6); Glucose 101 mg/dL (65-115); Osmolality Calculated 284 mOsm/kg (285-295); Sodium 136 mmol/L (136-145); Total Protein 6.6 g/dL (6.6-8.7)
[2025-06-05 05:50] LABS: Anion Gap 20.8 (5-19); Aspartate Amino Transferase 27 U/L (0-40); Potassium 4.8 mmol/L (3.5-5.1)
[2025-06-05 06:31] LABS: Hematocrit 48.1 % (37-53); Hemoglobin 16.30 g/dL (11.27-16.99); Mean Corpuscular HGB Conc 33.9 g/dL (30-55); Mean Corpuscular Hemoglobin 30.2 pg (27-33); Mean Corpuscular Volume 89.1 fl (82-101); Nucleated Red Blood Cells % 0 %; Platelet Count 272 10^3/cmm (157-399); Red Blood Count 5.40 10^6/uL (3.85-5.65); White Blood Count 8.61 10^3/uL (3.29-11.43)
[2025-06-05 06:32] LABS: Slide Review Slide Review Perform
[2025-06-05 07:49] VITALS: BP 160/110; PULSE 107; RESP 18; TEMP 36.4; O2SAT 94
--- NOTE | 2025-06-05 10:31 | PC.NURSE ---
career development coordinator rounds @ 0620- gave patient stroke education and went through it with him, all questions answered.
[2025-06-05 11:32] VITALS: BP 148/117; PULSE 106; RESP 17; O2SAT 96
--- NOTE | 2025-06-05 13:32 | PC.NURSE ---
Patient Discharge Patient vitals taken and iv removed patient walked down to outpatient pharmacy with nurse and to pick up worker meds and then to [facility] exit
[2025-06-05 13:34] VITALS: BP 148/117; PULSE 106; RESP 17; TEMP 36.6; O2SAT 96
--- NOTE | 2025-06-05 15:34 | PM.DCS ---
Discharge Providers Date of Admission: 06/04/25 12:19 Date of Discharge: June 05, 2025 Attending Provider at Admission: Frandy Armstrong Attending Provider at Discharge: Frandy Armstrong Diagnoses at Discharge Discharge Diagnosis 1. Ischemic stroke: Reason for Visit Reason for Visit: unable to speak Brief History: Andry Del Cid is a 50 year old male with recent hospitalization for acute stroke (received tenecteplase [TNK] on May 31) who left the hospital against medical advice prior to completion of workup. He returned to the emergency department this morning after developing sudden inability to speak while driving around 6:30 a.m. Symptoms have fluctuated and included facial numbness and difficulty using a hand; he also reports one foot went numb while driving but function returned. States numbness persists mildly but he can feel everything. Reports episodes of shortness of breath recently and took a ?water pill? he had at home. Denies leg swelling. Denies fever, chills, vomiting, diarrhea, dysuria, blood in urine or stool, black stools, rashes. Reports a recent bronchitis with severe cough that has since resolved. Denies current cough. No difficulty swallowing reported; tolerated water without coughing. He is not taking routine home medications because he is unsure which ones to take. Hospital Course Hospital Course With stuttering course with recent CVA versus additional small CVA, with M2 segment vessel paucity and possible ischemia on CTA, not on any medications preadmission, started on aspirin, Plavix, statin, A1c, lipid panel followed up from previous admission as well as TTE, discussed with him persistence of nonischemic cardiomyopathy with low ejection fraction, 25%, no atrial fibrillation on telemetry. His symptoms are improved from yesterday with improving mild residual sensory loss/paresthesia of the right side of the face, right hand, resolved in the left leg. Resolved aphasia. He is given prescription for medications with continued aspirin and statin and 21 days of Plavix. nurse monitoring is requested for and discussed with him at discharge. He is asked to follow-up with neurology after CVA and cardiology due to nonischemic cardiomyopathy and for arrangements for ICD. He did not wish to stay to complete 24 hours of telemetry monitoring while in the hospital after the CVA as discussed with him by myself and medication coordinator. He also prefers not to wait to further touch base with cardiology to see if another LifeVest can be arranged for him prior to discharge and prefers to follow-up with them in office, understanding risk of potentially life-threatening arrhythmia in the setting of nonischemic cardiomyopathy with low ejection fraction, which may be noncompatible with life. Understands increased risk of mortality and complications including congestive heart failure. Understands as per discussion caution with fluid intake, with prescriptions given for carvedilol, losartan. Lasix is sent in for as needed use for him as discussed in case of edema, orthopnea, weight gain, worsening MUELLER. He is not in acute CHF. He will continue with mild to moderate activity. He is asked to continue monitoring blood pressures and continue to target long-term goal of less than 120/80. With anxiety and stress being contributing factors to hypertension as well as his cardiovascular disease, he complains of anxiety being a pervasive problem, he is started on buspirone, and referral is requested for follow-up with behavioral health care for further management, with stress reduction strategies also discussed. He knows to call 911 in case of recurrent or new concerning symptoms. Physical Exam Narrative: Awake and alert, conversant, interacting and following directions. Sitting up at the edge of the bed. Const: COMMON NORMALS: patient oriented x3 and alert GENERAL APPEARANCE: cooperative ORIENTATION/CONSCIOUSNESS: Yes awake HENMT: COMMON NORMALS: oropharynx normal Neck/C-Spine: COMMON NORMALS: no JVD Resp: COMMON NORMALS: normal respiratory effort and clear to auscultation bilaterally AUSCULTATION: clear to auscultation bilaterally Cardio: COMMON NORMALS: no JVD, regular rhythm, S1 normal heart sound present, S2 normal heart sound present and No murmurs present (Cardio) RHYTHM: regular rhythm HEART SOUNDS: S1 normal heart sound present and S2 normal heart sound present GI: COMMON NORMALS: Normal to inspection, nondistended, normoactive bowel sounds present, Soft to palpation and non-tender PALPATION: Yes Soft to palpation Extremity: COMMON NORMALS: no joint enlargement and no pedal edema Neuro: COMMON NORMALS: patient oriented x3 and moves all extremities SENSORIUM/ORIENTATION: Yes alert OTHER: He is awake and alert, following directions without difficulty. Minimal if any right-sided facial droop. No aphasia or dysarthria. No difficulty with horizontal tracking. Visual garcia full to confrontation, without visual extinction. No difficulty with FNF. Sensory exam with mild decrease sensation on the right face and upper extremity. Without sensory extinction. No upper or lower extremity drift. Skin: COMMON NORMALS: no rashes or lesions noted GENERAL SKIN EXAM: no rashes or lesions noted Discharge Data Studies Completed and Pending Completed Studies During Hospitalization Category Date Time Status CT head wo con* [id number] Stat Cat Scan 06/04/25 07:23 Completed CTA head neck [CT angio headneck* [id number]] Stat Cat Scan 06/04/25 07:50 Completed XR chest 1V portable [id number] Stat Exams 06/04/25 07:51 Completed Pending at discharge Category Date Time Status Blood Culture Stat Lab 06/04/25 10:05 Results Radiology Impressions Head CT 06/04/25 07:23 IMPRESSION: 1. No acute intracranial hemorrhage or edema. 2. Mild atrophy and very minimal small vessel disease. No definite acute infarct is identified. Head/Neck CTA 06/04/25 07:50 IMPRESSION: 1. Patent bilateral cervical carotid arteries. 2. Patent short stent LEFT ICA. 3. Short segment paucity of vessels in the mid LEFT M2 segment. No thrombus identified. Correlate with area of ischemia. 4. Very small caliber and partially occluded LEFT vertebral artery. Chest X-Ray 06/04/25 07:51 IMPRESSION: 1. No acute cardiopulmonary finding. Stable cardiomegaly Laboratory Results WBC 8.61 10^3/uL (3.29-11.43) 06/05/25 04:36 RBC 5.40 10^6/uL (3.85-5.65) 06/05/25 04:36 Hgb 16.30 g/dL (11.27-16.99) 06/05/25 04:36 Hct 48.1 % (37-53) 06/05/25 04:36 MCV 89.1 fl (82-101) 06/05/25 04:36 MCH 30.2 pg (27-33) 06/05/25 04:36 MCHC 33.9 g/dL (30-55) 06/05/25 04:36 RDW 13.8 % (12.1-15.1) 06/05/25 04:36 Plt Count 272 10^3/cmm (157-399) 06/05/25 04:36 MPV 11.6 fL (7.4-10.4) H 10/31/25 04:36 Neut % (Auto) 66.7 % 06/05/25 04:36 Lymph % (Auto) 21.4 % 06/05/25 04:36 [place] % (Auto) 8.1 % 06/05/25 04:36 Eos % (Auto) 2.8 % 06/05/25 04:36 Baso % (Auto) 0.9 % 06/05/25 04:36 Neut # (Auto) 5.74 10^3/uL (1.8-7.7) 06/05/25 04:36 Lymph # (Auto) 1.8 10^3/uL (0.8-4.8) 06/05/25 04:36 [place] # (Auto) 0.7 10^3/uL (0.2-0.9) 06/05/25 04:36 Eos # (Auto) 0.2 10^3/uL (0.0-0.8) 06/05/25 04:36 Baso # (Auto) 0.1 10^3/uL (0.0-0.1) 06/05/25 04:36 Nucleated RBC % (auto) 0 % 06/05/25 04:36 Nucleated RBCs # 0.0 /100WBC 06/05/25 04:36 Specimen Type Arterial 06/04/25 08:41 Sample Site Radial, left 06/04/25 08:41 ABG pH 7.45 (7.35-7.45) 06/04/25 08:41 ABG pCO2 35.4 mmHg (35-45) 06/04/25 08:41 ABG pO2 79.2 mmHg (80.0-100.0) L 06/04/25 08:41 ABG PO2/FiO2 Ratio 377 06/04/25 08:41 ABG HCO3 24.6 mmol/L (22-26) 06/04/25 08:41 ABG O2 Saturation 96.5 06/04/25 08:41 ABG Base Excess 1.0 mmol/L (-2.0-2.0) 06/04/25 08:41 [place] Test Pos 06/04/25 08:41 A-a O2 Gradient 3.4 mmHg (5-10) L 06/04/25 08:41 Hematocrit 43.3 % (42-52) 06/04/25 08:41 Hgb O2 Saturation 95.2 % (95-100) 06/04/25 08:41 Carboxyhemoglobin 1.1 %THgb (0.4-20.1) 06/04/25 08:41 Methemoglobin 0.2 % (0.4-1.5) L 06/04/25 08:41 Total Hemoglobin 14.1 g/dL (14-18) 06/04/25 08:41 Sodium 136.0 mmol/L (131-143) 06/04/25 08:41 Potassium 3.4 mmol/L (3.5-5.0) L 06/04/25 08:41 Glucose 121.0 mg/dL (70-115) H 06/04/25 08:41 Ionized Calcium 1.1 mmol/L (1.1-1.4) 06/04/25 08:41 O2 Delivery Device Room air 06/04/25 08:41 FiO2 21.0 % 06/04/25 08:41 Sediment Remediation Consultant ID Mon[place] 06/04/25 08:41 Sodium 136 mmol/L (136-145) 06/05/25 04:36 Potassium 4.8 mmol/L (3.5-5.1) 06/05/25 04:36 Chloride 99 mmol/L (98-107) 06/05/25 04:36 Carbon Dioxide 21 mmol/L (22-29) L 06/05/25 04:36 Anion Gap 20.8 (5-19) H 06/05/25 04:36 BUN 17 mg/dL (6-20) 06/05/25 04:36 Creatinine 1.1 mg/dL (0.7-1.2) 06/05/25 04:36 GFR Calculation 70.6 mL/min (90-130) L 06/05/25 04:36 Glucose 101 mg/dL (65-115) 06/05/25 04:36 Calculated Osmolality 284 mOsm/kg (285-295) L 06/05/25 04:36 Lactic Acid 1.6 mmol/L (0.5-2.2) 06/04/25 07:48 Calcium 9.0 mg/dL (8.5-10.5) 06/05/25 04:36 Total Bilirubin 0.7 mg/dL (0.15-1.2) 06/05/25 04:36 AST 27 U/L (0-40) 06/05/25 04:36 ALT 26 U/L (0-41) 06/05/25 04:36 Alkaline Phosphatase 90 U/L (40-130) 06/05/25 04:36 Total Protein 6.6 g/dL (6.6-8.7) 06/05/25 04:36 Albumin 3.7 g/dL (3.5-5.2) 06/05/25 04:36 Globulin 2.9 g/dL (1.3-4.6) 06/05/25 04:36 Salicylates < 0.3 mg/dL (3-10) L 06/04/25 07:48 Acetaminophen < 5.0 ug/mL (10-30) L 06/04/25 07:48 Ethyl Alcohol < 10 mg/dL (0-10) 06/04/25 07:48 Vitals Last Vital Signs Temp 97.8 F 06/05/25 13:34 Pulse 106 H 06/05/25 13:34 Resp 17 06/05/25 13:34 BP 148/117 06/05/25 13:34 Pulse Ox 96 06/05/25 13:34 O2 Del Method Room Air 06/05/25 11:32 Discharge Plan Discharge Patient Disposition: Home Condition: Stable Prescriptions: New atorvastatin 40 mg Tablet 40 mg PO BEDTIME Qty: 90 0RF clopidogrel 75 mg Tablet 75 mg PO DAILY Qty: 21 0RF carvedilol 3.125 mg tablet 3.125 mg PO BID Qty: 180 0RF Rx Instructions: must administer with a meal/food losartan 50 mg tablet 50 mg PO DAILY Qty: 90 0RF buspirone 7.5 mg tablet 7.5 mg PO BID Qty: 90 0RF aspirin 81 mg capsule 81 mg PO DAILY Qty: 90 0RF furosemide [Lasix] 40 mg tablet 40 mg PO DAILY PRN (Reason: edema) Qty: 30 0RF Rx Instructions: Edema or rapid water weight gain >3lbs in 2 days Continued acetaminophen [Tylenol Extra Strength] 500 mg Tablet 500 mg PO QID PRN (Reason: Fever Or Pain) Discharge Order = DC NOW: Discharge Order (Routine); Ordered 06/05/25 Ordered By: Frandy Armstrong Other Ambulatory Orders: MCT/Event Monitor 30 Days (Routine) Timeframe: 1 Day Facility: [facility] - Location: Radiology Ordered By: Frandy Armstrong Referrals: [facility], medical provider [Other] - 4-7 days Referral Note: Anxiety and stress CALL [phone] FOR APPOINTMENT OR WALK IN FOR TREATMENT. [facility] IN [place] Luisito Mensah MD [Physician, Neurology] - 10/05/25 3:00 pm Referral Note: [facility] WILL CALL WITH APPOINTMENT SOONER WHEN POSSIBLE Fe Sam FNP [Nurse Practitioner, Cardiology] - 07/06/25 4:00 pm Referral Note: [facility] [Occupational Therapist, Medical] Referral Note: We have notified your physician's clinic of the need for a follow-up appointment to be scheduled. If you have not heard from them within the next 2 business days, please call them directly. [facility] WILL CALL WITH APPOINTMENT Discharge Diet: Cardiac Patient Instructions: Buspirone (By mouth), Aspirin (By mouth), Losartan (By mouth), Atorvastatin (By mouth), Carvedilol (By mouth), Clopidogrel (By mouth), Dilated Cardiomyopathy (GEN), Ischemic Stroke (GEN), Stroke Stoplight, Patient Portal & Chapo Instructions Activity Restrictions/Additional Instructions: As discussed, please continue aspirin and plavix with aspirin continued indefinitely while plavix for 21 days. Continue cholesterol medication to help reduce chance of recurrence of stroke. Follow up to get set up for heart monitor to detect atrial fibrillation or other arrhythmia. Continue to optimize risk factors of stroke and heart disease - monitor blood pressures twice daily and target joint terminal attack controller blood pressure of 120/80. Avoid stress and work on stress reduction techniques. Maintain mild to moderate activity. Avoid overexertion due to weakened heart and as discussed risk of life threatening arrhythmia increased risk of heart failure and as discussed. Follow up with cardiology and discuss referral for defibrillator as discussed and consieration of resuming life vest in the meantime. Please make sure to take your heart medications. In case of worsening or new concerning symptoms seek medical attention. Discharge Attestations Time Spent in Discharge Care*: greater than 30 min Status at Discharge: Cognitive status at discharge: cognitively intact, Behavioral status at discharge: cooperative, Quality Metrics Clinical Quality Measures [ Cerebrovascular Accident { Contraindication to Antithrombotic: None; antithrombotic prescribed; Contraindication to Anticoagulation: Overlap treatment not indicated; Contraindication to Statin: None; Statin prescribed;}] Coding Level of Care Code 09375 Total time (in minutes) for Discharge: 55 Diagnoses Ischemic stroke I63.9
== END 2025-06-05 13:35 | disposition home or self-care (01) ==
LOC: ER 11:33 → MEDSURG 12:20
PROVIDERS: Admitting Provider Internal Medicine; Emergency Provider Family Medicine; Visit Provider Internal Medicine
DX: I63.9 Cerebral infarction, unspecified (principal); R29.709 NIHSS score 9; I13.0 Hypertensive heart and chronic kidney disease with heart failure and stage 1 through stage 4 chronic kidney disease, or unspecified chronic kidney disease; N18.9 Chronic kidney disease, unspecified; I50.9 Heart failure, unspecified; Z87.891 Personal history of nicotine dependence; I42.8 Other cardiomyopathies
CPT/HCPCS: 36415; 36600; 70450; 70496; 70498; 71045; 80051; 80053; 80307; 82330; 82805; 83605; 85025; 87040; 92507; 92523; 92610; 93005; 96372; 97161; 97165; 99285; G0378; J1650; J7030; J9999

== ENCOUNTER 2025-06-08 07:56 | Emergency (ER) | payer OTHER, SELFPAY ==
--- NOTE | 2025-06-08 08:00 | XR_ITS ---
WS: [id number] Portable AP upright chest, 06/08/2025 Clinical Data: dyspnea/cough Comparison: Portable chest, 06/04/2025 Findings: No nodules or masses are seen. The heart is enlarged. There is a small right pleural effusion the pulmonary vascularity is not increased. No pneumonia or pneumothorax is seen. The aortic arch shows tortuosity. Monitor leads are on the chest wall. XR/XR chest 1V portable [id number] Impression: Cardiomegaly, atherosclerosis and small right pleural effusion.
--- NOTE | 2025-06-08 08:00 | ECG_ITS ---
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 Measurements Intervals [place] Rate: 98 P: 71 NE: 219 QRS: -71 QRSD: 108 T: 103 QT: 388 QTc: 498 Interpretive Statements SINUS RHYTHM WITH FIRST DEGREE AV BLOCK POSSIBLE LEFT ATRIAL ENLARGEMENT [-0.1mV P-WAVE IN V1/V2] LEFT AXIS DEVIATION [QRS AXIS < -30] POSSIBLE LEFT VENTRICULAR HYPERTROPHY [VOLTAGE CRITERIA PLUS LAE OR QRS WIDENING] ABNORMAL QRS-T ANGLE [QRS-T AXIS DIFFERENCE > 60] Compared to ECG 06/04/2025 08:53:27 Incomplete right bundle-branch block no longer present Myocardial infarct finding no longer present T-wave abnormality no longer present Possible ischemia no longer present Electronically Signed On 06-09-2025 22:11:59 PHYSICIAN/INTERNIST by Naomy Elizalde M.D. [email or web address]
[2025-06-08 08:04] VITALS: BP 141/120; PULSE 102; RESP 19; TEMP 36.1; O2SAT 98; BMI 29.5
--- OUTSIDE RECORDS SUMMARY | 2025-06-08 08:06 | XMS_ITS | Clinical Summary ---
Author Organization [facility] es Address [address] [place] [address] Care Team Providers Care Engineer Second Assistant Name Role Phone Not In Database, Pcp Primary Care Provider Unava ilable Source Comments Applies to Substance Abuse Treatment Information Only: The Federal rules restrict any use of the information to criminally investigate or prosecute any Alcohol or Drug Abuse Patient.[place] [employer] Allergies No known active allergies Medications verapamil (CALAN) 40 mg tablet Take 40 mg by mouth three(3) times daily. Active SUMAtriptan (IMITREX) 20 mg/actuation spray 1 Palm into nose two(2) times daily as needed. 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
--- OUTSIDE RECORDS SUMMARY | 2025-06-08 08:06 | XMS_ITS | Clinical Summary ---
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 PACKER Inhaled Oxygen Concentration - - Weight 93 kg (205 lb) 08/09/2012 8:24 AM SHRIMP PACKER Height 175.3 cm (5' 9 ) 08/09/2012 8:24 AM 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
--- NOTE | 2025-06-08 08:53 | W.ED.SOB ---
HPI - SOB/Dyspnea General: Chief Complaint: Shortness of Breath/Dyspnea Stated Complaint: sob, fatigue Time Seen by Provider: 06/08/25 08:04 History of Present Illness: HPI Narrative: 50-year-old male presents to the emergency room with complaints of shortness of breath that started 2 days ago. Increasing orthopnea and increasing exertional dyspnea denies chest pain he was admitted last week for stroke left AMA came back was and overnight finished a stroke workup and was discharged home he is on carvedilol clopidogrel Lasix losartan aspirin and atorvastatin. No fever sweats or chills. He is also been very fatigued. He denies any productive cough. Patient has a history of nonischemic cardiomyopathy. Echocardiogram done on 06/01/2025 showed an EF of 25%. Associated symptoms: Deny abdominal pain, chest pain or fever(s) Related Data Home Medications ?Medication ?Instructions ?Recorded ?Confirmed acetaminophen 500 mg tablet 500 mg PO QID PRN Fever Or Pain 05/31/25 06/08/25 (Tylenol Extra Strength) Previous Rx's ?Medication ?Instructions ?Recorded aspirin 81 mg capsule 81 mg PO DAILY #90 caps 06/05/25 atorvastatin 40 mg tablet 40 mg PO BEDTIME #90 tabs 06/05/25 buspirone 7.5 mg tablet 7.5 mg PO BID #90 tabs 06/05/25 carvedilol 3.125 mg tablet 3.125 mg PO BID #180 tabs 06/05/25 clopidogrel 75 mg tablet 75 mg PO DAILY #21 tabs 06/05/25 furosemide 40 mg tablet (Lasix) 40 mg PO DAILY PRN edema #30 tabs 06/05/25 losartan 50 mg tablet 50 mg PO DAILY #90 tabs 06/05/25 Allergies Allergy/AdvReac Type Severity Reaction Status Date / Time No Known Allergies Allergy Verified 02/05/25 10:11 Review of Systems Const: Denies: fever(s) or chills Card: Denies: chest pain Resp: Denies: dyspnea GI: Denies: abdominal pain : Denies: dysuria, urinary frequency or urinary urgency Musc: Denies: neck pain or back pain Skin/Breast: Denies: rash PFSH ED PFSH: Medical History Pulmonary nodule 1 cm or greater in diameter CKD (chronic kidney disease) Nonischemic cardiomyopathy EF 25% CHF (congestive heart failure) Vapes nicotine containing substance HTN (hypertension) Cluster headache Social History Smoking and tobacco/nicotine status: former use of tobacco/nicotine Alcohol intake: never Substance/Drug Use: current Substance/Drug use frequency: Special occassions/opportunity only Other substance/drug use details: Denies Physical Exam Const: GENERAL APPEARANCE: cooperative ORIENTATION/CONSCIOUSNESS: Yes awake, Yes oriented to person, Yes oriented to place and Yes oriented to time HENMT: COMMON NORMALS: normocephalic, atraumatic and hearing grossly normal bilaterally HEAD & SCALP: normocephalic and atraumatic Resp: COMMON NORMALS: normal respiratory effort, No retractions and No use of accessory muscles AUSCULTATION: crackles Cardio: COMMON NORMALS: regular rate, regular rhythm and No murmurs present (Cardio) RATE: regular rate RHYTHM: regular rhythm GI: COMMON NORMALS: Soft to palpation and No hepatosplenomegaly present AUSCULTATION: Yes normoactive bowel sounds PALPATION: Yes Soft to palpation, No Tenderness to palpation present (GI), No Guarding due to palpation present (GI) and Yes No hepatosplenomegaly present Extremity: COMMON NORMALS: normal to inspection, capillary refill normal, no clubbing, cyanosis or edema, no calf tenderness and no pedal edema Neuro: SENSORIUM/ORIENTATION: Yes oriented to person, Yes oriented to place and Yes oriented to time Skin: COMMON NORMALS: no rashes or lesions noted GENERAL SKIN EXAM: no rashes or lesions noted Course Vital Signs: Vital signs: Vital Signs Temperature 96.9 F L 06/08/25 08:04 Pulse Rate 105 H 06/08/25 11:30 Respiratory Rate 23 H 06/08/25 11:30 Blood Pressure 139/93 06/08/25 11:30 Pulse Oximetry 96 06/08/25 11:30 Oxygen Delivery Me thod Room Air 06/08/25 08:04 MDM - SOB/Dyspnea Medical Decision Making Decompensated congestive heart failure we made arrangements for admission patient became upset because he felt like this all should have been addressed at his previous hospitalization became very angry belligerent with staff he was cussing and swearing at the staff. We encouraged him to stay. Offered psychiatric consultation to help him deal with his anxiety and anger issues ultimately patient refuses to stay and leaves AMA. Medical Records I reviewed the patient's medical records. Lab Data I reviewed the patient's lab results. 06/08/25 09:00 06/08/25 09:00 Labs/Radiology: Radiology Impressions Chest X-Ray 06/08/25 08:00 Impression: Cardiomegaly, atherosclerosis and small right pleural effusion. Laboratory Results WBC 9.05 10^3/uL (3.29-11.43) 06/08/25 09:00 RBC 5.04 10^6/uL (3.85-5.65) 06/08/25 09:00 Hgb 15.10 g/dL (11.27-16.99) 06/08/25 09:00 Hct 45.6 % (37-53) 06/08/25 09:00 MCV 90.5 fl (82-101) 06/08/25 09:00 MCH 30.0 pg (27-33) 06/08/25 09:00 MCHC 33.1 g/dL (30-55) 06/08/25 09:00 RDW 13.5 % (12.1-15.1) 06/08/25 09:00 Plt Count 346 10^3/cmm (157-399) 06/08/25 09:00 MPV 10.6 fL (7.4-10.4) H 06/08/25 09:00 Neut % (Auto) 65.7 % 06/08/25 09:00 Lymph % (Auto) 18.3 % 06/08/25 09:00 Foard % (Auto) 14.0 % 06/08/25 09:00 Eos % (Auto) 0.7 % 06/08/25 09:00 Baso % (Auto) 0.9 % 06/08/25 09:00 Neut # (Auto) 5.94 10^3/uL (1.8-7.7) 06/08/25 09:00 Lymph # (Auto) 1.7 10^3/uL (0.8-4.8) 06/08/25 09:00 [place]oard # (Auto) 1.3 10^3/uL (0.2-0.9) H 06/08/25 09:00 Eos # (Auto) 0.1 10^3/uL (0.0-0.8) 06/08/25 09:00 Baso # (Auto) 0.1 10^3/uL (0.0-0.1) 06/08/25 09:00 Nucleated RBC % (auto) 0 % 06/08/25 09:00 Nucleated RBCs # 0.0 /100WBC 06/08/25 09:00 Sodium 135 mmol/L (136-145) L 06/08/25 09:00 Potassium 4.1 mmol/L (3.5-5.1) 06/08/25 09:00 Chloride 102 mmol/L (98-107) 06/08/25 09:00 Carbon Dioxide 22 mmol/L (22-29) 06/08/25 09:00 Anion Gap 15.1 (5-19) 06/08/25 09:00 BUN 21 mg/dL (6-20) H 06/08/25 09:00 Creatinine 1.1 mg/dL (0.7-1.2) 06/08/25 09:00 GFR Calculation 70.6 mL/min (90-130) L 06/08/25 09:00 Glucose 107 mg/dL (65-115) 06/08/25 09:00 Calculated Osmolality 283 mOsm/kg (285-295) L 06/08/25 09:00 Calcium 8.9 mg/dL (8.5-10.5) 06/08/25 09:00 Total Bilirubin 1.4 mg/dL (0.15-1.2) H 06/08/25 09:00 AST 208 U/L (0-40) H 06/08/25 09:00 ALT 172 U/L (0-41) H 06/08/25 09:00 Alkaline Phosphatase 134 U/L (40-130) H 06/08/25 09:00 NT-Pro-B Natriuret Pep 9018 pg/mL (0-125) H 06/08/25 09:00 Total Protein 6.7 g/dL (6.6-8.7) 06/08/25 09:00 Albumin 3.7 g/dL (3.5-5.2) 06/08/25 09:00 Globulin 3.0 g/dL (1.3-4.6) 06/08/25 09:00 Influenza A (PCR) Negative (Negative) 06/08/25 09:38 Influenza Type B (PCR) Negative (Negative) 06/08/25 09:38 RSV (PCR) Negative (Negative) 06/08/25 09:38 SARS-CoV-2 (PCR) Negative (Negative) 06/08/25 09:38 All radiology interpretation(s) finalized by discharge EKG Data EKG 1: I personally reviewed and interpreted this EKG as follows: Prior EKG tracings: available for review Interpretation: I will EKG 06/08/2025 8:20 AM sinus rhythm first-degree block rate of 98 CA interval 219 QTc [address] elevation or changes no acute changes from previous EKG 06/04/2025 Discharge Plan Discharge Patient Disposition: Left Against Medical Advice Clinical Impression: CHF (congestive heart failure), HTN (hypertension) Condition: Stable Prescriptions: No Action acetaminophen [Tylenol Extra Strength] 500 mg Tablet 500 mg PO QID PRN (Reason: Fever Or Pain) atorvastatin 40 mg Tablet 40 mg PO BEDTIME Qty: 90 0RF clopidogrel 75 mg Tablet 75 mg PO DAILY Qty: 21 0RF carvedilol 3.125 mg tablet 3.125 mg PO BID Qty: 180 0RF Rx Instructions: must administer with a meal/food losartan 50 mg tablet 50 mg PO DAILY Qty: 90 0RF buspirone 7.5 mg tablet 7.5 mg PO BID Qty: 90 0RF aspirin 81 mg capsule 81 mg PO DAILY Qty: 90 0RF furosemide [Lasix] 40 mg tablet 40 mg PO DAILY PRN (Reason: edema) Qty: 30 0RF Rx Instructions: Edema or rapid water weight gain >3lbs in 2 days Print Language: Gambian Coding Level of Care Code ED Telemarketing Supervisor for Rony Maldonado
[2025-06-08 09:08] LABS: Hematocrit 45.6 % (37-53); Hemoglobin 15.10 g/dL (11.27-16.99); Mean Corpuscular HGB Conc 33.1 g/dL (30-55); Mean Corpuscular Hemoglobin 30.0 pg (27-33); Mean Corpuscular Volume 90.5 fl (82-101); Nucleated Red Blood Cells % 0 %; Platelet Count 346 10^3/cmm (157-399); Red Blood Count 5.04 10^6/uL (3.85-5.65); White Blood Count 9.05 10^3/uL (3.29-11.43)
[2025-06-08 09:40] LABS: Alanine Aminotransferase 172 U/L (0-41); Albumin Level 3.7 g/dL (3.5-5.2); Alkaline Phosphatase 134 U/L (40-130); Anion Gap 15.1 (5-19); Aspartate Amino Transferase 208 U/L (0-40); Blood Urea Nitrogen 21 mg/dL (6-20); Calcium 8.9 mg/dL (8.5-10.5); Carbon Dioxide 22 mmol/L (22-29); Chloride 102 mmol/L (98-107); Creatinine Clr Calc Pharmacy 88.4462; Globulin 3.0 g/dL (1.3-4.6); Glucose 107 mg/dL (65-115); NT Pro B Type Natriuretic Pept 9018 pg/mL (0-125); Osmolality Calculated 283 mOsm/kg (285-295); Potassium 4.1 mmol/L (3.5-5.1); Sodium 135 mmol/L (136-145); Total Protein 6.7 g/dL (6.6-8.7)
[2025-06-08 10:27] LABS: Respiratory Syncytial Virus Ce NEGATIVE (Negative); SARS-CoV-2 PCR NEGATIVE (Negative)
[2025-06-08] MEDS: hyDRALAzine 20 mg/mL INJ 1 mL IVP (10:42)
[2025-06-08 10:44] VITALS: BP 167/127
[2025-06-08] MEDS: nitroglycerin drip 50 MG/250 ML PREMIX IV (10:47)
[2025-06-08 10:51] VITALS: BP 155/120; PULSE 103; RESP 15
[2025-06-08 11:00] VITALS: BP 144/108; PULSE 103; RESP 23
[2025-06-08 11:15] VITALS: BP 150/102; PULSE 103; RESP 21
[2025-06-08 11:30] VITALS: BP 139/93; PULSE 105; RESP 23; O2SAT 96
--- NOTE | 2025-06-08 11:56 | PC.NURSE ---
PT HAD GOTTEN UNHOOKED FROM THE VITAL SIGNS MONITOR DUE TO USING THE BEDSIDE COMMODE. THIS NURSE WENT TO CHECK ON PT AND HOOK HIM BACK UP. PT BECOMING UPSET AND REQUESTING ANSWERS TO WHY HE IS FEELING THE WAY HE IS FEELING. THIS NURSE INFORMED PT THAT HE WAS BEING ADMITTED TO BE FURTHER EVALUATED. PT CONTINUED TO BE FRUSTRATED AND DEMANDING ANSWERS. THIS NURSE CONTINUED TO EDUCATE PT THAT WE CURRENTLY DO NOT HAVE ALL THE ANSWERS AND HE NEEDS TO ADMITTED TO THE HOSPITAL FOR FURTHER EVALUATION AND TREATMENT. PT STILL UPSET. PROVIDER NOTIFIED.
--- NOTE | 2025-06-08 12:15 | PC.NURSE ---
THIS NURSE NOTICED PT WAS UNHOOKED AGAIN. THIS NURSE WENT IN TO THE ROOM TO ATTEMPT TO HOOK PT UP AGAIN. THIS NURSE NOTICED ANOTHER NURSE WAS IN THE ROOM. PT STATED TO THIS NURSE DON'T TOUCH ME. I WANT TO GO. THIS NURSE NOTIFIED DR. NELSON. PT STATED TO OTHER NURSE IN THE ROOM THAT HE DID NOT WANT HIS NURSE TO COME BACK IN TO THE ROOM. ED ICU NURSE NOTIFIED. AMA PAPER TAKEN TO PT BY ED ICU NURSE AND DR. NELSON AT THIS TIME.
--- NOTE | 2025-06-08 12:20 | PC.NURSE ---
PT VERBALLY AGGRESSIVE WITH STAFF. PROVIDER ENTERED ROOM AND EXPLAINED RISK AND BENEFITS OF LEAVING AGAINST MEDICAL ADVICE. PATIENT STATES THAT DOESN'T WANT TO SPEAK TO THAT MAN BECAUSE HE THINKS I NEED HELP. PATIENT SIGNED AMA PAPERWORK, IV REMOVED, LEFT ER.
== END 2025-06-08 12:21 | disposition left against medical advice (07) ==
PROVIDERS: Emergency Provider Family Medicine
DX: I13.0 Hypertensive heart and chronic kidney disease with heart failure and stage 1 through stage 4 chronic kidney disease, or unspecified chronic kidney disease (principal); N18.9 Chronic kidney disease, unspecified; I50.9 Heart failure, unspecified; Z87.891 Personal history of nicotine dependence; Z11.52 Encounter for screening for COVID-19; Z79.01 Long term (current) use of anticoagulants; Z79.82 Long term (current) use of aspirin
CPT/HCPCS: 36415; 71045; 80053; 83880; 85025; 87637; 93005; 96365; 96375; 99285; J0360; J3490

== ENCOUNTER 2025-06-21 06:38 | Inpatient (IN) | payer OTHER, SELFPAY ==
[2025-06-21] VITALS (17 sets, daily range): BP systolic 141–182; BP diastolic 92–129; PULSE 92–106; RESP 12–35; TEMP 36.4–36.7; O2SAT 93–97; BMI 31.0; BMI 31.1
--- NOTE | 2025-06-21 06:41 | ECG_ITS ---
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 Measurements Intervals [place] Rate: 100 P: 71 NE: 214 QRS: -80 QRSD: 110 T: 90 QT: 383 QTc: 496 Interpretive Statements SINUS TACHYCARDIA WITH FIRST DEGREE AV BLOCK WITH OCCASIONAL VENTRICULAR PREMATURE COMPLEXES POSSIBLE LEFT ATRIAL ENLARGEMENT [-0.1mV P-WAVE IN V1/V2] LEFT AXIS DEVIATION [QRS AXIS < -30] INCOMPLETE RIGHT BUNDLE BRANCH BLOCK [90+ ms QRS DURATION, TERMINAL R IN V1/V2, 40+ ms S IN I/aVL/V4/V5/V6] SEPTAL MYOCARDIAL INFARCTION , OF INDETERMINATE AGE [40+ ms Q WAVE IN V1/V2] Compared to ECG 06/08/2025 08:20:22 Ventricular premature complex(es) now present Incomplete right bundle-branch block now present Myocardial infarct finding now present Electronically Signed On 06-21-2025 15:05:37 [employer]OR [employer]ORES AND AGENCIES SUPERVISOR by Rashard Curran M.D. [email or web address]
--- NOTE | 2025-06-21 06:42 | XRR_ITS ---
PROCEDURE INFORMATION: Exam: XR Chest Exam date and time: 06/21/2025 6:52 AM Age: 50 years old Clinical indication: Shortness of breath; Chf; Additional info: SOB TECHNIQUE: Imaging protocol: Radiologic exam of the chest. Views: 1 view. COMPARISON: CR XR chest 1V portable [id number] 06/08/2025 8:21 AM FINDINGS: Lungs: Moderate right lower lobe pulmonary infiltrate with small associated effusion. Pleural spaces: Unremarkable. No pleural effusion. No pneumothorax. Heart/Mediastinum: See Vasculature finding. Vasculature: Moderate cardiomegaly and uncoiling of the thoracic aorta. Bones/joints: Unremarkable. XR/XR chest 1V portable [id number] IMPRESSION: Right lower lobe infiltrate plus effusion. The findings are suspicious for pneumonia.
--- NOTE | 2025-06-21 07:00 | CTR_ITS ---
PROCEDURE INFORMATION: Exam: CTA Chest With Contrast Exam date and time: 06/21/2025 7:56 AM Age: 50 years old Clinical indication: Shortness of breath; HX of chf; Additional info: SOB TECHNIQUE: Imaging protocol: Computed tomographic angiography of the chest with contrast. Exam focused on the arteries. 3D rendering (Not supervised by radiologist): MIP and/or 3D reconstructed images were created by the technologist. Radiation optimization: All CT scans at this facility use at least one of these dose optimization techniques: automated exposure control; mA and/or kV adjustment per patient size (includes targeted exams where dose is matched to clinical indication); or iterative reconstruction. Contrast material: OMNIPAQUE 350; Contrast volume: 100 ml; Contrast route: INTRAVENOUS (IV); COMPARISON: CT angio chest PE protcl [id number] 09/22/2024 8:28 AM RADIATION DOSE METRICS: Total DLP (mGy-cm): 520.21 FINDINGS: Pulmonary arteries: Bilateral pulmonary artery embolism is present. Small volume thrombus is identified in a few segmental level pulmonary arteries bilaterally as well as the left interlobar artery. Aorta: Unremarkable. No aortic aneurysm. No aortic dissection. Lungs: Hazy dependent poorly defined ground-glass airspace opacities in the posterior lung garcia bilaterally. Pleural spaces: Moderately large right-sided pleural effusion. Trace left-sided pleural effusion. Negative for pneumothorax. Heart: Dilated cardiac chambers. Negative for pericardial effusion. Circumscribed hypoattenuating area in the apex of the right cardiac ventricle which is suspicious for focal thrombus measures 3.5 cm x 2.9 cm x 2.3 cm. Heart RV/LV ratio: RV to LV ratio less than 0.9 Lymph nodes: Unremarkable. No enlarged lymph nodes. Bones/joints: Unremarkable. No acute fracture. Soft tissues: Unremarkable. CT/CT angio chest PE protcl [id number] IMPRESSION: 1. Positive for pulmonary artery embolism. 2. Suspicion for right ventricle focal organized thrombus in the apex. 3. Dilated cardiomyopathy. 4. Hazy ground-glass opacities may represent edema. 5. Significant right-sided pleural effusion.
--- NOTE | 2025-06-21 07:12 | ED_ITS ---
HPI - SOB/Dyspnea 2 General: Chief Complaint: Shortness of Breath/Dyspnea Stated Complaint: SOB Time Seen by Provider: 06/21/25 06:51 Source: patient Mode of arrival: ambulatory Limitations: no limitations History of Present Illness: HPI Narrative: 50-year-old male has a history of conges tive heart failure states he has been having increasing shortness of breath been going on for the last 3 to 4 weeks. States that he just gets short of breath at all times denies any worse improved factors he denies any cough denies any fever denies any chest pain states he has been taking his meds. Related Data Home Medications ?Medication ?Instructions ?Recorded ?Confirmed acetaminophen 500 mg tablet 500 mg PO QID PRN Fever Or Pain 05/31/25 06/21/25 (Tylenol Extra Strength) aspirin 81 mg tablet,delayed 81 mg PO DAILY 06/21/25 1 08/21/24 release budesonide-formoterol HFA 160 2 puff inhalation BID 06/21/25 mcg-4.5 mcg/actuation aerosol inhaler (Symbicort) sertraline 25 mg tablet 25 mg PO QAM 06/21/25 Previous Rx's ?Medication ?Instructions ?Recorded atorvastatin 40 mg tablet 40 mg PO BEDTIME #90 tabs buspirone 7.5 mg tablet 7.5 mg PO BID #90 tabs 06/05 carvedilol 3.125 mg tablet 3.125 mg PO BID #180 tabs 1 clopidogrel 75 mg tablet 75 mg PO DAILY #21 tabs 05/08 08/30 furosemide 40 mg tablet (Lasix) 40 mg PO DAILY PRN adriana ma #30 tabs 06/05/25 losartan 50 mg tablet 50 mg PO DAILY #90 tabs 05/08 08/30 Allergies Allergy/AdvReac Type Severity Reaction Status Date / Time No Known Allergies Allergy Verified 02/05/25 10:11 Review of Systems 2 Resp: Reports: dyspnea PFSH ED 2 PFSH: Medical History (Updated 06/21/25 @ 09:21 by Ashish Aiken MD) Pulmonary nodule 1 cm or greater in diameter CKD (chronic kidney disease) Nonischemic cardiomyopathy EF 25% CHF (congestive heart failure) Vapes nicotine containing substance HTN (hypertension) Cluster headache Social History Smoking and tobacco/nicotine status: former use of tobacco/nicotine Alcohol intake: never Substance/Drug Use: current Substance/Drug use frequency: Special occassions/opportunity only Other substance/drug use details: Denies Physical Exam 2 Const: COMMON NORMALS: patient oriented x3 HENMT: COMMON NORMALS: normocephalic and atraumatic HEAD & SCALP: n ormocephalic and atraumatic Eye: COMMON NORMALS: conjunctivae normal CONJUNCTIVA: Yes conjunctivae normal Neck/C-Spine: COMMON NORMALS: full ROM and supple Chest: COMMONS NORMALS: normal inspection of the chest Resp: COMMON NORMALS: No retractions and No use of accessory muscles A USCULTATION: rales Cardio: COMMON NORMALS: regular rate, regular rhythm and No murmurs present (Cardio) RATE: regular rate RHYTHM: regular rhythm GI: COMMON NORMALS: Normal to inspection, nondistended, normoactive bowel sounds present, Soft to palpation, non-tender and no masses PALPATION: Yes Soft to palpation Extremity: COMMON NORMALS: normal to inspection and full ROM Neuro: COMMON NORMALS: patient oriented x3, moves all extremities and no focal motor deficits Psych: COMMON NORMALS: mental status grossly normal, Normal thought process present and cooperative THOUGHT PROCESS: Normal thought process present Skin: COMMON NORMALS: no rashes or lesions noted and no wounds GENERAL SKIN EXAM: no rashes or lesions noted Course 2 Vital Signs: Vital signs: Vital Signs Temperature 97.5 F L 06/21/25 06:49 Pulse Rate 106 H 06/21/25 06:59 Respiratory Rate 23 H 06/21/25 06:59 Blood Pressure 160/119 06/21/25 06:49 Pulse Oximetry 97 06/21/25 06:59 Oxygen Delivery Me thod Room Air 06/21/25 06:49 MDM - SOB/Dyspnea Medical Decision Making 50-year-old male history congestive heart failure presents here with increasing shortness of breath. Differential includes pneumothorax, pneumonia, congestive heart failure, pulm emboli. Patient does have an elevated BNP chest CT here showed up pulmonary emboli no signs of heart strain he does have hazy ground glass opacities on the CT that is likely edema he has had a cough fever white count no signs of pneumonia. EKG here shows sinus tach heart rate [address] elevation QRS 112 QTc 442. Did give him IV Lasix along with Lovenox his vitals here have been stable I spoke to hospitalist Dr. YURY BECK who will admit to cardiac stepdown. Medical Records I reviewed the patient's medical records. Lab Data I reviewed the patient's lab results. 06/21/25 07:25 06/21/25 07:25 Labs/Radiology: Radiology Impressions Chest X-Ray 06/21/25 06:42 IMPRESSION: Right lower lobe infiltrate plus effusion. The findings are suspicious for pneumonia. Chest CTA 06/21/25 07:00 IMPRESSION: 1. Positive for pulmonary artery embolism. 2. Suspicion for right ventricle focal organized thrombus in the apex. 3. Dilated cardiomyopathy. 4. Hazy ground-glass opacities may represent edema. 5. Significant right-sided pleural effusion. ADDENDUM: 06/21/25825 THIS REPORT CONTAINS FINDINGS THAT MAY BE CRITICAL TO PATIENT CARE. The findings were verbally communicated via telephone conference with ASHISH AIKEN at 8:24 AM CHEMICAL PRODUCTION TECHNICIAN on 06/21/2025. The findings were acknowledged and understood. Laboratory Results WBC 10.72 10^3/uL (3.29-11.43) 06/21/25 07:25 RBC 5.21 10^6/uL (3.85-5.65) 06/21/25 07:25 Hgb 15.30 g/dL (11.27-16.99) 06/21/25 07:25 Hct 47.6 % (37-53) 06/21/25 07:25 MCV 91.4 fl (82-101) 06/21/25 07:25 MCH 29.4 pg (27-33) 06/21/25 07:25 MCHC 32.1 g/dL (30-55) 06/21/25 07:25 RDW 13.3 % (12.1-15.1) 06/21/25 07:25 Plt Count 354 10^3/cmm (157-399) 06/21/25 07:25 MPV 10.2 fL (7.4-10.4) 06/21/25 07:25 Neut % (Auto) 75.3 % 06/21/25 07:25 Lymph % (Auto) 12.9 % 06/21/25 07:25 [place]an % (Auto) 10.2 % 06/21/25 07:25 Eos % (Auto) 0.6 % 06/21/25 07:25 Baso % (Auto) 0.7 % 06/21/25 07:25 Neut # (Auto) 8.09 10^3/uL (1.8-7.7) H 06/21/25 07:25 Lymph # (Auto) 1.4 10^3/uL (0.8-4.8) 06/21/25 07:25 [place]an # (Auto) 1.1 10^3/uL (0.2-0.9) H 06/21/25 07:25 Eos # (Auto) 0.1 10^3/uL (0.0-0.8) 06/21/25 07:25 Baso # (Auto) 0.1 10^3/uL (0.0-0.1) 06/21/25 07:25 Nucleated RBC % (auto) 0 % 06/21/25 07: Nucleated RBCs # 0.0 /100WBC 06/21/25 07:25 Sodium 133 mmol/L (136-145) L 06/21/25 07:25 Potassium 4.5 mmol/L (3.5-5.1) 06/21/25 07:25 Chloride 101 mmol/L (98-107) 06/21/25 07:25 Carbon Dioxide 20 mmol/L (22-29) L 06/21/25 07:25 Anion Gap 16.5 (5-19) 06/21/25 07:25 BUN 26 mg/dL (6-20) H 06/21/25 07:25 Creatinine 1.2 mg/dL (0.7-1.2) 06/21/25 07:25 GFR Calculation 63.8 mL/min (90-130) L 06/21/25 07:25 Glucose 95 mg/dL (65-115) 06/21/25 07:25 Calculated Osmolality 281 mOsm/kg (285-295) L 06/21/25 07:25 Calcium 8.9 mg/dL (8.5-10.5) 06/21/25 07:25 Total Bilirubin 2.3 mg/dL (0.15-1.2) H 06/21/25 07:25 AST 104 U/L (0-40) H 06/21/25 07:25 ALT 149 U/L (0-41) H 06/21/25 07:25 Alkaline Phosphatase 141 U/L (40-130) H 06/21/25 07:25 NT-Pro-B Natriuret Pep 55509 pg/mL (0-125) H 06/21/25 07:25 Total Protein 6.4 g/dL (6.6-8.7) L 06/21/25 07:25 Albumin 3.3 g/dL (3.5-5.2) L 06/21/25 07:25 Globulin 3.1 g/dL (1.3-4.6) 06/21/25 07:25 All radiology interpretation(s) finalized by discharge EKG Data EKG 1: I personally reviewed and interpreted this EKG as follows: EKG Interpretation Date: 06/21/25 EKG interpretation time: 06:44 Interpretation: sinus tach hr [address] elevation qrs 112 qtc 442 Discharge Plan Discharge Patient Disposition: Admitted As Inpatient Clinical Impression: CHF (congestive heart failure), Pulmonary embolism Condition: Stable Coding Level of Care Code ED Director Of Patient Care for Rony Maldonado
[2025-06-21 07:46] LABS: Hematocrit 47.6 % (37-53); Hemoglobin 15.30 g/dL (11.27-16.99); Mean Corpuscular HGB Conc 32.1 g/dL (30-55); Mean Corpuscular Hemoglobin 29.4 pg (27-33); Mean Corpuscular Volume 91.4 fl (82-101); Nucleated Red Blood Cells % 0 %; Platelet Count 354 10^3/cmm (157-399); Red Blood Count 5.21 10^6/uL (3.85-5.65); White Blood Count 10.72 10^3/uL (3.29-11.43)
[2025-06-21] MEDS: iohexol 350 mg/mL 500 mL Btl (per mL) IV (08:01)
[2025-06-21 08:07] LABS: Alanine Aminotransferase 149 U/L (0-41); Albumin Level 3.3 g/dL (3.5-5.2); Alkaline Phosphatase 141 U/L (40-130); Anion Gap 16.5 (5-19); Aspartate Amino Transferase 104 U/L (0-40); Blood Urea Nitrogen 26 mg/dL (6-20); Calcium 8.9 mg/dL (8.5-10.5); Carbon Dioxide 20 mmol/L (22-29); Chloride 101 mmol/L (98-107); Globulin 3.1 g/dL (1.3-4.6); Glucose 95 mg/dL (65-115); Osmolality Calculated 281 mOsm/kg (285-295); Potassium 4.5 mmol/L (3.5-5.1); Sodium 133 mmol/L (136-145); Total Protein 6.4 g/dL (6.6-8.7)
[2025-06-21 08:18] LABS: Slide Review Slide Review Perform
[2025-06-21 08:43] LABS: NT Pro B Type Natriuretic Pept 12346 pg/mL (0-125)
[2025-06-21] MEDS: FUROsemide 10 mg/mL SDV 4mL 40 MG IVP (08:48)
--- NOTE | 2025-06-21 08:58 | PC.PHAR ---
Pt has rx bottles from the [place] and [facility], as well as a Symbicort inhaler without a label, possibly from the [place]. Pt also has rx bottle of Furosemide 20mg qam from the [place] and pt has new rx for 40mg sent to [facility] on 06/05/25
[2025-06-21] MEDS: pantoprazole 40 mg SDV IVP (15:37)
--- NOTE | 2025-06-21 17:17 | PM.HP ---
Providers/Chief Complaint Admitting Physician: Shan Hess MD Chief Complaint: SOB History of Present Illness Andry Del Cid is a 50 year old male with pmhx of HTN, CKD, NSTEMI, CHF, CVA, HOWE, leaving AMA, pulmonary nodules, former nicotine use, hx of LifeVest vaping, and nonischemic cardiomyopathy -EF 25%, anxiety, and pleural effusion presenting with complaints of shortness of breath. Patient reports that he has had shortness of breath for the last 2 months that has been more pronounced over the last 3 to 4 weeks. This is with and without exertion. He also endorses history of a mini stroke with residual of right face numbness and numbness to his feet bilaterally left more pronounced than right. He has had sleeplessness X1 week but last night was so exhausted that he slept hard. Denies dizziness, headache, falls, or any other modifying factors. He came to [facility] ED via private vehicle today. BP 160/119, HR 109, RR 23, T97.5. WBC 10.7, HGB 15.3, PLT 354. D-dimer 1.77. Na 133. EKG; sinus tachycardia, rate 100. Will admit to the hospitalist service for further evaluation and treatment. Chest CTA; positive for pulmonary artery embolism, suspicion for right ventricle focal organized thrombus in the apex, dilated cardiomyopathy, hazy ground glass opacities may represent edema, significant right-sided pleural effusion Will admit to Hospitalist Service for further evaluation and treatement. Review of Systems Const: Denies: fever(s) or chills Card: Denies: chest pain Resp: Denies: dyspnea GI: Denies: abdominal pain : Denies: dysuria, urinary frequency or urinary urgency Musc: Denies: neck pain or back pain Skin/Breast: Denies: rash Medications/Allergies Home Medications ?Medication ?Instructions ?Recorded ?Confirmed ?Last Taken ?Type acetaminophen 500 mg tablet 500 mg PO QID PRN Fever Or Pain 05/31/25 06/21/25 Unknown History (Tylenol Extra Strength) atorvastatin 40 mg tablet 40 mg PO BEDTIME #90 tabs 06/05/25 06/21/25 06/21/25 Rx buspirone 7.5 mg tablet 7.5 mg PO BID #90 tabs 06/05/25 06/21/25 06/21/25 Rx carvedilol 3.125 mg tablet 3.125 mg PO BID #180 tabs 06/05/25 06/21/25 06/21/25 Rx clopidogrel 75 mg tablet 75 mg PO DAILY #21 tabs 06/05/25 06/21/25 06/21/25 Rx furosemide 40 mg tablet (Lasix) 40 mg PO DAILY PRN edema #30 tabs 06/05/25 06/21/25 06/08/25 Rx losartan 50 mg tablet 50 mg PO DAILY #90 tabs 06/05/25 06/21/25 06/21/25 Rx aspirin 81 mg tablet,delayed 81 mg PO DAILY 06/21/25 06/21/25 06/21/25 History release budesonide-formoterol HFA 160 2 puff inhalation BID 06/21/25 06/21/25 Unknown History mcg-4.5 mcg/actuation aerosol inhaler (Symbicort) sertraline 25 mg tablet 25 mg PO QAM 06/21/25 06/21/25 06/21/25 History Allergies Allergy/AdvReac Type Severity Reaction Status Date / Time No Known Allergies Allergy Verified 02/05/25 10:11 PFSH Acute PFSH: Medical History (Updated 06/21/25 @ 17:30 by Jane Valiente, [employer] BOTTLER, [employer] RECEPTIONIST) Pulmonary nodule 1 cm or greater in diameter CKD (chronic kidney disease) Nonischemic cardiomyopathy EF 25% CHF (congestive heart failure) Vapes nicotine containing substance HTN (hypertension) Cluster headache Social History Smoking and tobacco/nicotine status: former use of tobacco/nicotine Alcohol intake: never Substance/Drug Use: current Substance/Drug use frequency: Special occassions/opportunity only Other substance/drug use details: Denies Vitals/I&O/Wt Last Vital Signs Temp 97.6 F 06/21/25 16:00 Pulse 102 H 06/21/25 16:00 Resp 15 06/21/25 16:00 BP 143/96 06/21/25 16:00 Pulse Ox 97 06/21/25 16:00 O2 Del Method Room Air 06/21/25 15:29 06/21/25 06/21/25 06/21/25 06:59 14:59 22:59 Intake Total 0 / 0 Output Total 1650 / 1650 Balance 0 / 0 -1650 / -1650 Weight last 48 hrs Weight 95.5 kg Weight 95.254 kg Physical Exam Narrative: Awake and alert, conversant, interacting and following directions. Sitting up at the edge of the bed. Const: COMMON NORMALS: patient oriented x3 and alert GENERAL APPEARANCE: cooperative ORIENTATION/CONSCIOUSNESS: Yes awake Neck/C-Spine: COMMON NORMALS: no JVD Resp: COMMON NORMALS: normal respiratory effort Cardio: COMMON NORMALS: no JVD and regular rhythm RHYTHM: regular rhythm GI: COMMON NORMALS: Normal to inspection, nondistended, normoactive bowel sounds present PALPATION: Yes Soft to palpation Extremity: COMMON NORMALS: no joint enlargement and no pedal edema Neuro: COMMON NORMALS: patient oriented x3 Skin: GENERAL SKIN EXAM: no rashes or lesions noted Data 06/21/25 07:25 06/21/25 07:25 A&P Assessment and plan 1. Other congestive heart failure: In the setting of nonischemic cardiomyopathy 09/23/2024 echocardiogram EF 25?30% RR 23, O2 saturation 97% on room air CXR; Right lower lobe infiltrate plus effusion. The findings are suspicious for pneumonia. Lasix Monitor I&O Fluid restriction Pulse oximetry Supplemental O2 to keep saturations greater than 92% RT 2. History of ischemic stroke: 05/2025 History of acute ischemic stroke Residual numbness to face and bilateral feet Lipid panel PT and OT Telemetry monitior for arrhythmia CM consult. 3. Primary hypertension: BP 153/127 On home Carvedilol and losartan Goal 120/80, Monitor BP 4. Vapes nicotine containing substance: Cessation education 5. Pulmonary embolism: D-dimer 1.77 Chest CTA; positive for pulmonary artery embolism, suspicion for right ventricle focal organized thrombus in the apex, dilated cardiomyopathy, hazy ground glass opacities may represent edema, significant right-sided pleural effusion Lovenox started PDMP PDMP Reviewed: Not Reviewed Attestations Medical Necessity Statement*: Continued hospitalization for > 2 midnights to treat congestive heart failure exacerbation, pulmonary embolism, significant pleural effusion, and general medical management. Diagnoses Other congestive heart failure I50.9 Heart failure type: other History of ischemic stroke Z86.73 Primary hypertension I10 Hypertension type: primary hypertension Vapes nicotine containing substance Z72.0 Pulmonary embolism I26.99 Time Spent (min) 70
[2025-06-21 18:28] LABS: Base Excess VBG 0.1 mmol/L (-3.0-3.0); Blood Gas Operator Identificat CAK; Blood Gas Sample Type Venous; HCO3 VBG 22.6 mmol/L (24-28); PCO2 VBG 31.0 mmHg (41-51); PO2 VBG 124.0 mmHg (25-40); Venous Blood Gas Hematocrit 52.8 % (42-52); pH VBG 7.47 (7.32-7.42)
[2025-06-22] VITALS (23 sets, daily range): BP systolic 128–161; BP diastolic 87–124; PULSE 73–95; RESP 16–24; TEMP 35.6–37; O2SAT 94–100
[2025-06-22 03:53] LABS: Hematocrit 49.1 % (37-53); Hemoglobin 16.20 g/dL (11.27-16.99); Mean Corpuscular HGB Conc 33.0 g/dL (30-55); Mean Corpuscular Hemoglobin 29.3 pg (27-33); Mean Corpuscular Volume 88.8 fl (82-101); Nucleated Red Blood Cells % 0 %; Platelet Count 462 10^3/cmm (157-399); Red Blood Count 5.53 10^6/uL (3.85-5.65); White Blood Count 11.48 10^3/uL (3.29-11.43)
[2025-06-22 04:17] LABS: Anion Gap 16.0 (5-19); Blood Urea Nitrogen 33 mg/dL (6-20); Calcium 8.7 mg/dL (8.5-10.5); Carbon Dioxide 24 mmol/L (22-29); Chloride 99 mmol/L (98-107); Glucose 103 mg/dL (65-115); Magnesium 2.0 mg/dL (1.7-2.3); Osmolality Calculated 288 mOsm/kg (285-295); Potassium 4.0 mmol/L (3.5-5.1); Sodium 135 mmol/L (136-145)
--- NOTE | 2025-06-22 09:55 | PC.NURSE ---
Spoke with [facility] to schedule f[facility]u.
--- NOTE | 2025-06-22 11:09 | P.PN_ITS ---
Subjective 2 Subjective: Patient is seen this morning in the cardiac stepdown unit. He is a 50-year-old male who was admitted yesterday because of difficulty breathing, found to have acute PE on CTA. He also has a history of CHF, for which he takes on Lasix on a PRN basis, etc. Seen patient this morning, he is not able to acknowledge whether he is getting better or getting worse with his symptoms. He was not also able to give me clear answers to most of the questions about his past medical history. Of note, CT also reported some 3.5 x 2.9 x 2.3 cm thrombus in the right ventricle. Otherwise, he is currently tolerating treatment plans. Vitals/I&O/Wt Last Vital Signs Temp 96.9 F L 06/22/25 08:00 Pulse 74 06/22/25 08:00 Resp 18 06/22/25 08:00 BP 141/97 06/22/25 08:00 Pulse Ox 96 06/22/25 08:00 O2 Del Method Room Air 06/22/25 08:00 06/21/25 06/22/25 06/22/25 22:59 06:59 14:59 Intake Total 1200 / 1200 240 / 240 Output Total 600 / 2250 350 / 350 Balance 1200 / -450 -600 / -1050 -110 / -110 Weight last 48 hrs Weight 96 kg Weight 95.5 kg Weight 95.254 kg Physical Exam 2 Narrative: General: Awake and alert. No obvious respiratory distress. Neuro/Psych: Somewhat evasive in his answers. Otherwise, cooperative. Oriented x 3 Chest/Resp: Bilateral equal air entry; chest clinically clear. No significant basilar crackles appreciated by me. CVS: Rhythm: Regular heart rate and rhythm. Heart rate in the 70s no obvious murmurs appreciated. GI: Soft and non-tender abdomen. No obvious organomegaly. Extremities: Bilateral equal pulses. No obvious (or significant) pitting pedal edema that I could appreciate. Data 06/22/25 03:14 06/22/25 03:14 Other Imaging: Radiologist's impression: Report of the chest x-ray and chest CTA done yesterday reviewed, and shows/reports hazy ground glass opacity bilaterally, with some suspicion for right ventricular focal organized thrombus in the apex, plus dilated chambers. A&P Assessment and plan 1. Pulmonary embolism: Currently stable, no oxygen required. Currently on anti-coagulation with Lovenox, has continued with this. 2. Right ventricular apical thrombus: I spoke with the staffing director, who recommended getting a limited echocardiogram to further evaluate this. I will defer advice from cardiology, who have officially consulted. 3. Nonischemic cardiomyopathy: Noted. The associated low ejection fraction 25% clearly noted. Otherwise, there is no obvious sign of fluid overload at this time. Will await further advice from cardiology. 4. History of ischemic stroke: Plan: Like mentioned above, patient is saturating well on room; no obvious dyspnea at rest. I will go ahead and await further advice from cardiology. Further plans may just likely repeat levels. PDMP PDMP Reviewed: Not Reviewed Attestations 2 Medical Necessity Statement*: Patient is considerately estimated to likely to require at least one more mid- night stay in the medical floor on inpatient status so as to hopefully optimally treat the acute medical problems and their symptoms and further control comorbidities. Coding Level of Care Code 12037 Diagnoses Pulmonary embolism I26.99 Right ventricular apical thrombus I51.3 Nonischemic cardiomyopathy I42.8 History of ischemic stroke Z86.73
--- NOTE | 2025-06-22 12:47 | PM.CONSULT ---
Providers/Reason For Consult Consulting Physician/Specialty*: BABS Elizalde MD/cardiology Reason for Consult*: Patient with a nonischemic cardiomyopathy, admitted with bilateral PE, CTA showing possible RV apical thrombus Requesting Physician: Dr. Hess Attending Physician: Shan Hess MD History of Present Illness History of Present Illness Andry Del Cid is a 50 year old male with a history of nonischemic cardiomyopathy is admitted to the hospital with worsening shortness of breath. He was found to have evidence of bilateral pulmonary emboli mostly in the subsegmental arteries. Also was found to have a thrombus in the left interlobar artery. He also was found to have a possible organized right ventricular apical thrombus. Cardiology is consulted for further cardiac evaluation and recommendations. This patient is known to have nonischemic cardiomyopathy diagnosed in September of this year when he presented to this hospital with progressive shortness of breath and features of congestive heart failure. Cardiac catheterization at that time revealed no significant obstructive coronary disease. His LV ejection fraction was around 20 to 25%. He was supposed to be started on Entresto. But apparently patient missed some of his follow-up appointments. He was placed on a LifeVest but because of the uncomfortable feeling? Patient did not want to continue it. He was admitted to the hospital in May with features of CVA. He received thrombolytic. Most of his symptoms are resolved. He has some numbness and tingling in the right lower extremity and right side of the face. He denies any chest pain or chest tightness. No palpitations, dizziness or syncopal episode. He has a remote history of methamphetamine abuse. He lives alone. He appears to be irritated with questions in the beginning but later on he was found to be more cooperative. He has no fever, chills or cough. No history for any previous DVT or thromboembolism. He has a history of passing out/collapse and had? 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 Details are not available Review of Systems Narrative: CONSTITUTIONAL: No fever or chills. EYES: No blurring of vision or other visual disturbances lately. ENT: No hoarseness of voice, auditory disturbances or sore throat. CARDIOVASCULAR: Nonischemic cardiomyopathy with ejection fraction around 25% by echocardiogram a month ago. RESPIRATORY: Worsening shortness of breath as mentioned above GASTROINTESTINAL: No hematemesis or melena. GENITOURINARY: No dysuria or hematuria. INTEGUMENTARY: No skin rashes or history of skin cancer. NEURO: No transient ischemic attacks or amaurosis. PSYCHIATRIC: No history of psychosis or major depression. HEMATOLOGIC: No bleeding disorders or significant anemia. ENDOCRINE: No history of polyuria or polydipsia. MUSCULOSKELETAL: No recent joint pain or swelling. ALLERGY/IMMUNOLOGY: As mentioned above. Medications/Allergies Home Medications ?Medication ?Instructions ?Recorded ?Confirmed ?Last Taken ?Type acetaminophen 500 mg tablet 500 mg PO QID PRN Fever Or Pain 05/31/25 06/21/25 Unknown History (Tylenol Extra Strength) atorvastatin 40 mg tablet 40 mg PO BEDTIME #90 tabs 06/05/25 06/21/25 06/21/25 Rx buspirone 7.5 mg tablet 7.5 mg PO BID #90 tabs 06/05/25 06/21/25 06/21/25 Rx carvedilol 3.125 mg tablet 3.125 mg PO BID #180 tabs 06/05/25 06/21/25 06/21/25 Rx clopidogrel 75 mg tablet 75 mg PO DAILY #21 tabs 06/05/25 06/21/25 06/21/25 Rx furosemide 40 mg tablet (Lasix) 40 mg PO DAILY PRN edema #30 tabs 06/05/25 06/21/25 06/08/25 Rx losartan 50 mg tablet 50 mg PO DAILY #90 tabs 06/05/25 06/21/25 06/21/25 Rx aspirin 81 mg tablet,delayed 81 mg PO DAILY 06/21/25 06/21/25 06/21/25 History release budesonide-formoterol HFA 160 2 puff inhalation BID 06/21/25 06/21/25 Unknown History mcg-4.5 mcg/actuation aerosol inhaler (Symbicort) sertraline 25 mg tablet 25 mg PO QAM 06/21/25 06/21/25 06/21/25 History Allergies Allergy/AdvReac Type Severity Reaction Status Date / Time No Known Allergies Allergy Verified 02/05/25 10:11 Current Medications Generic Name Dose Route Start Last Admin Trade Name Freq PRN Reason Stop Dose Admin Albuterol Sulfate 2.5 mg 06/21/25 16:00 06/22/25 11:55 Albuterol 2.5 Mg/3 Ml Neb INHALATION Not Given QID.RESPIRATORY ANJEL Aspirin 81 mg 06/22/25 05:00 06/22/25 04:34 Aspirin 81 Mg Ec Tablet PO 81 mg DAILY ANJEL Administration Atorvastatin Calcium 40 mg 06/21/25 21:00 06/21/25 20:04 Atorvastatin 40 Mg Tablet PO 40 mg BEDTIME ANJEL Administration Budesonide 0.5 mg 06/21/25 20:00 06/22/25 08:26 Budesonide 0.5 Mg/2 Ml Neb INHALATION 0.5 mg BID.RESPIRATORY ANJEL Administration Buspirone HCl 7.5 mg 06/21/25 17:00 06/22/25 04:31 Buspirone 5 Mg Tablet PO 7.5 mg BID ANJEL Administration Carvedilol 3.125 mg 06/21/25 17:00 06/22/25 04:34 Carvedilol 3.125 Mg Tablet PO 3.125 mg BID ANJEL Administration Clopidogrel Bisulfate 75 mg 06/22/25 05:00 06/22/25 04:34 Clopidogrel 75 Mg Tablet PO 75 mg DAILY ANJEL Administration Enoxaparin Sodium 100 mg 06/22/25 09:00 06/22/25 08:33 Enoxaparin 100 Mg/Ml Syringe 1 mg/kg (100 mg) 100 mg SUBCUT Administration Q24H ANJEL Losartan Potassium 50 mg 06/22/25 05:00 06/22/25 04:34 Losartan 50 Mg Tablet PO 50 mg DAILY ANJEL Administration Pantoprazole Sodium 40 mg 06/21/25 14:30 06/21/25 15:37 Pantoprazole 40 Mg Sdv IVP 40 mg Q24H ANJEL Administration Sertraline HCl 25 mg 06/22/25 05:00 06/22/25 04:33 Sertraline 50 Mg Tablet PO 25 mg QAM ANJEL Administration PFSH Acute PFSH: Medical History Pulmonary nodule 1 cm or greater in diameter CKD (chronic kidney disease) Nonischemic cardiomyopathy EF 25% CHF (congestive heart failure) Vapes nicotine containing substance HTN (hypertension) Cluster headache Social History Smoking and tobacco/nicotine status: former use of tobacco/nicotine Alcohol intake: never Substance/Drug Use: current Substance/Drug use frequency: Special occassions/opportunity only Other substance/drug use details: Denies Vitals/I&O/Wt Last Vital Signs Temp 96.1 F L 06/22/25 11:19 Pulse 86 06/22/25 11:19 Resp 16 06/22/25 11:19 BP 132/87 06/22/25 11:19 Pulse Ox 97 06/22/25 11:19 O2 Del Method Room Air 06/22/25 11:19 06/21/25 06/22/25 06/22/25 22:59 06:59 14:59 Intake Total 1200 / 1200 240 / 240 Output Total 600 / 2250 350 / 350 Balance 1200 / -450 -600 / -1050 -110 / -110 Weight last 48 hrs Weight 211 lb 10.3 oz Weight 210 lb 8.663 oz Weight 210 lb Physical Exam Narrative: GENERAL: The patient is alert and oriented times three. Not in any acute distress. HEENT: No significant pallor, icterus or lymphadenopathy.Oral cavity: There are no mucous membrane lesions. NECK: Trachea appears to be central. No masses noted. No JVD or thyromegaly appreciated. RESPIRATORY: Chest is symmetrical. No intercostals muscle retraction or any accessory muscle activation. There is no chest wall tenderness. Breath sounds are heard bilaterally. No rales or rhonchi heard. No evidence of any consolidation. BREASTS: Deferred. HEART: The heart sounds are normal. No S3 or S4. No significant murmurs. No pericardial rub ABDOMEN: No vessel pulsations or distention. No tenderness. No organomegaly appreciated. Bowel sounds are normally heard. : Deferred. RECTAL: Deferred. LYMPHATIC: No lymphadenopathy noted in the neck. EXTREMITIES: No edema or cyanosis. No clubbing. MUSCULOSKELETAL: No acute joint deformities or swelling SKIN: There are no significant rashes or ecchymosis NEUROPSYCHIATRIC: The patient is alert and oriented x3. Appears to be in a good mood. No tremors or rigidity noted. Data 06/22/25 03:14 06/22/25 03:14 Other Labs: Laboratory Last Values WBC 11.48 10^3/uL (3.29-11.43) H 06/22/25 03:14 RBC 5.53 10^6/uL (3.85-5.65) 06/22/25 03:14 Hgb 16.20 g/dL (11.27-16.99) 06/22/25 03:14 Hct 49.1 % (37-53) 06/22/25 03:14 MCV 88.8 fl (82-101) 06/22/25 03:14 MCH 29.3 pg (27-33) 06/22/25 03:14 MCHC 33.0 g/dL (30-55) 06/22/25 03:14 RDW 13.2 % (12.1-15.1) 06/22/25 03:14 Plt Count 462 10^3/cmm (157-399) H D 06/22/25 03:14 MPV 10.2 fL (7.4-10.4) 06/22/25 03:14 Neut % (Auto) 68.8 % 06/22/25 03:14 Lymph % (Auto) 18.6 % 06/22/25 03:14 Bertie % (Auto) 10.4 % 06/22/25 03:14 Eos % (Auto) 1.1 % 06/22/25 03:14 Baso % (Auto) 0.8 % 06/22/25 03:14 Neut # (Auto) 7.91 10^3/uL (1.8-7.7) H 06/22/25 03:14 Lymph # (Auto) 2.1 10^3/uL (0.8-4.8) 06/22/25 03:14 Bertie # (Auto) 1.2 10^3/uL (0.2-0.9) H 06/22/25 03:14 Eos # (Auto) 0.1 10^3/uL (0.0-0.8) 06/22/25 03:14 Baso # (Auto) 0.1 10^3/uL (0.0-0.1) 06/22/25 03:14 Nucleated RBC % (auto) 0 % 06/22/25 03:14 Nucleated RBCs # 0.0 /100WBC 06/22/25 03:14 D-Dimer 1.37 ug/mLFEU (0-0.59) H 06/22/25 03:14 Specimen Type Venous 06/21/25 18:19 Sample Site Na 06/21/25 18:19 Leodan Test N/a 06/21/25 18:19 VBG pH 7.47 (7.32-7.42) H 06/21/25 18:19 VBG pCO2 31.0 mmHg (41-51) L 06/21/25 18:19 VBG pO2 124.0 mmHg (25-40) H 06/21/25 18:19 VBG HCO3 22.6 mmol/L (24-28) L 06/21/25 18:19 VBG Base Excess 0.1 mmol/L (-3.0-3.0) 06/21/25 18:19 VBG Hematocrit 52.8 % (42-52) H 06/21/25 18:19 O2 Delivery Device None 06/21/25 18:19 Seat Cover Installer ID Cak 06/21/25 18:19 Sodium 135 mmol/L (136-145) L 06/22/25 03:14 Potassium 4.0 mmol/L (3.5-5.1) 06/22/25 03:14 Chloride 99 mmol/L (98-107) 06/22/25 03:14 Carbon Dioxide 24 mmol/L (22-29) 06/22/25 03:14 Anion Gap 16.0 (5-19) 06/22/25 03:14 BUN 33 mg/dL (6-20) H 06/22/25 03:14 Creatinine 1.3 mg/dL (0.7-1.2) H 06/22/25 03:14 GFR Calculation 58.2 mL/min (90-130) L 06/22/25 03:14 Glucose 103 mg/dL (65-115) 06/22/25 03:14 Calculated Osmolality 288 mOsm/kg (285-295) 06/22/25 03:14 Calcium 8.7 mg/dL (8.5-10.5) 06/22/25 03:14 Magnesium 2.0 mg/dL (1.7-2.3) 06/22/25 03:14 Total Bilirubin 2.3 mg/dL (0.15-1.2) H 06/21/25 07:25 AST 104 U/L (0-40) H 06/21/25 07:25 ALT 149 U/L (0-41) H 06/21/25 07:25 Alkaline Phosphatase 141 U/L (40-130) H 06/21/25 07:25 C-Reactive Protein 3.5 mg/L (0.0-4.9) 06/21/25 07:25 NT-Pro-B Natriuret Pep 91398 pg/mL (0-125) H 06/21/25 07:25 Total Protein 6.4 g/dL (6.6-8.7) L 06/21/25 07:25 Albumin 3.3 g/dL (3.5-5.2) L 06/21/25 07:25 Globulin 3.1 g/dL (1.3-4.6) 06/21/25 07:25 Other data: The EKG from today revealed Normal sinus rhythm with incomplete right bundle branch block pattern. Possible left atrial enlargement. Left axis deviation. Nonspecific T wave change Cardiac catheterization in September of 2024 iagnostic Cath Status: Urgent Diagnostic Findings * INDICATION: NSTEMI/ LV dysfunction. * No significant disease noted in the Left Main, Left Anterior Descending, Right, or Circumflex coronary arteries. * Coronary angiography shows right dominance. Conclusions 1. No significant disease noted in the Left Main, Left Anterior Descending, Right, or Circumflex coronary arteries. Chest CTA 1. Positive for pulmonary artery embolism. 2. Suspicion for right ventricle focal organized thrombus in the apex. 3. Dilated cardiomyopathy. 4. Hazy ground-glass opacities may represent edema. 5. Significant right-sided pleural effusion. A&P Assessment and plan 1. Acute on chronic systolic heart failure: This could be multifactorial. Pulmonary embolism, noncompliance with medication, uncontrolled blood pressure etc. are contributing factor's . Currently the blood pressure seems to be getting under control. 2. Nonischemic congestive cardiomyopathy: The LV ejection fraction was around 25% by echocardiogram in May. 3. Uncontrolled hypertension: The blood pressure seems to be getting under control. 4. Bilateral pulmonary embolism: Patient is on IV anticoagulation. There is no evidence of any hemodynamic compromise. 5. Right ventricular apical thrombus: Based on the echocardiogram, there is no obvious thrombus. The patient seems to have RV band. If at all there is a thrombus it will be small and organized. 6. Renal dysfunction: The kidney function appears to be stable 7. Presence of internal carotid stent: The stent appears to be patent in the left ICA. He also has vertebral artery disease. Based on the patient's history, these are chronic. 8. History of ischemic stroke: Status post recent thrombolytic agent. Seems to have some residual numbness on his right side Plan: I will start the patient on Lasix 20 mg p.o. daily with spironolactone 25 mg p.o. daily. Discontinue the losartan Start him on Entresto 1 tablet p.o. twice daily May switch the Lovenox to Eliquis Discussed about LifeVest Apparently the patient had difficulty in wearing the LifeVest. He seems understand the implications. Based on the clinical progress, further recommendations will be made Thank you for the opportunity to evaluate this patient and make these recommendations PDMP PDMP Reviewed: Not Reviewed Coding Level of Care Code 06917 Diagnoses Acute on chronic systolic heart failure I50.23 Nonischemic congestive cardiomyopathy I42.0 Uncontrolled hypertension I10 Bilateral pulmonary embolism I26.99 Right ventricular apical thrombus I51.3 Renal dysfunction N28.9 Presence of internal carotid stent Z95.828 History of ischemic stroke Z86.73
--- NOTE | 2025-06-22 13:08 | USCV_ITS ---
Andry Del Cid Age: 50 Gender: M : 1975 Exam Date: 06/22/2025 14:51 Ordering Phys: Naomy Elizalde MD ([email or web address]) Technologist: MOLLY Exam Location: [facility] – [place] Indication: Possible RV thrombus BP: 132 / 87 HR: Rhythm: Sinus Technical Quality: Adequate MEASUREMENTS (Male / Female) Normal Values 2D ECHO LV Diastolic Diameter PLAX 8.9 cm 4.2 - 5.9 / 3.9 - 5.3 cm IVS Diastolic Thickness 1.0 cm 0.6 - 1.0 / 0.6 - 0.9 cm IVS Systolic Thickness 1.2 cm LVPW Diastolic Thickness 1.1 cm 0.6 - 1.0 / 0.6 - 0.9 cm LVPW Systolic Thickness 1.3 cm LVOT Diameter 2.1 cm LV Ejection Fraction 2D Teich 19.9 % LV Ejection Fraction MOD 4C 25.7 % LV Ejection Fraction MOD 2C 23.5 % LV Ejection Fraction 2C AL 22.5 % LA Diameter 4.7 cm RA Systolic Volume 4C AL 113.4 ml RA Systolic Volume 4C MOD 111.1 ml LA Sys Volume AL 136.5 cm cubed LA Sys Volume Index AL 62.4 cm cubed/m squared Aorta at Sinotubular Diameter 3.3 cm IVC Diameter 1.8 cm M-MODE LA Ao Ratio MM 1.8 AV Cusp Separation MM 1.5 cm FINDINGS Left Ventricle Moderately dilated left ventricle with severe diffuse hypokinesia. The LV ejection fraction around 24%. Right Ventricle The right ventricular appears to be mildly dilated with a slightly diminished ejection fraction. Linear densities were noted towards the RV apex, possibly suggesting moderator band. No obvious thrombus or masses noted Right Atrium Severely increased right atrial size. Left Atrium Severely increased left atrial size. IA Septum Appears to be intact Mitral Valve No gross morphologic abnormalities noted Aortic Valve No gross morphologic abnormalities noted Tricuspid Valve No gross morphologic abnormalities noted Pulmonic Valve Pulmonic valve not well visualized. Pericardium No pericardial effusion. Aorta Normal aortic annulus size. IVC Normal IVC dimension CONCLUSIONS Moderately dilated left ventricle with severe diffuse hypokinesia. The LV ejection fraction around 24%. Mildly dilated right ventricle with slightly diminished ejection fraction Linear echodensity at the RV apex, most likely represent moderator band. No unstable masses or lesions noted in the right ventricle Severe biatrial enlargement There is no pericardial effusion. Dr Naomy Elizalde MD FACC (Electronically Signed) Final Date: 22 June 2025 17:01 S
[2025-06-22] MEDS: pantoprazole 40 mg SDV IVP (16:28)
[2025-06-23] VITALS (15 sets, daily range): BP systolic 127–153; BP diastolic 83–117; PULSE 69–94; RESP 15–18; TEMP 35.9–36.6; O2SAT 97–99
--- NOTE | 2025-06-23 07:51 | P.PN_ITS ---
Subjective 2 Subjective: Patient is feeling better. He is tolerating the Entresto and the other medications. Medications: Medication Review Details: Current Medications Acetaminophen (Acetaminophen 500 Mg Tablet) 500 mg PO QID PRN PRN Reason: Fever Or Pain Albuterol Sulfate (Albuterol 2.5 Mg/3 Ml Neb) 2.5 mg INHALATION QID.[facility] Last Admin: 06/23/25 07:28 Dose: 2.5 mg Aspirin (Aspirin 81 Mg Ec Tablet) 81 mg PO DAILY ANJEL Last Admin: 06/23/25 04:13 Dose: 81 mg Atorvastatin Calcium (Atorvastatin 40 Mg Tablet) 40 mg PO BEDTIME ANJEL Last Admin: 06/22/25 20:13 Dose: 40 mg Budesonide (Budesonide 0.5 Mg/2 Ml Neb) 0.5 mg INHALATION BID.[facility] Last Admin: 06/23/25 07:29 Dose: 0.5 mg Buspirone HCl (Buspirone 5 Mg Tablet) 7.5 mg PO BID ANJEL Last Admin: 06/23/25 04:13 Dose: 7.5 mg Carvedilol (Carvedilol 3.125 Mg Tablet) 3.125 mg PO BID [facility] Last Admin: 06/23/25 04:14 Dose: 3.125 mg Clopidogrel Bisulfate (Clopidogrel 75 Mg Tablet) 75 mg PO DAILY [facility] Last Admin: 06/23/25 04:13 Dose: 75 mg Enoxaparin Sodium (Enoxaparin 100 Mg/Ml Syringe) 100 mg 1 mg/kg (100 mg) SUBCUT Q24H [facility] Last Admin: 06/22/25 08:33 Dose: 100 mg Furosemide (Furosemide 40 Mg Tablet) 40 mg PO DAILY PRN PRN Reason: EDEMA Furosemide (Furosemide 20 Mg Tablet) 20 mg PO DAILY@0800 [facility] Last Admin: 06/22/25 18:47 Dose: 20 mg Pantoprazole Sodium (Pantoprazole 40 Mg Sdv) 40 mg IVP Q24H [facility] Last Admin: 06/22/25 16:28 Dose: 40 mg Sacubitril/Valsartan (Sacubitril/Valsartan 24-26 Mg Tablet) 1 each PO BID [facility] Last Admin: 06/23/25 04:13 Dose: 1 each Sertraline HCl (Sertraline 50 Mg Tablet) 25 mg PO QAM [facility] Last Admin: 06/23/25 04:14 Dose: 25 mg Spironolactone (Spironolactone 25 Mg Tablet) 25 mg PO DAILY ANJEL Last Admin: 06/23/25 04:13 Dose: 25 mg Vitals/I&O/Wt Last Vital Signs Temp 97.8 F 06/23/25 04:00 Pulse 94 06/23/25 07:30 Resp 16 06/23/25 07:30 BP 144/117 06/23/25 04:00 Pulse Ox 97 06/23/25 07:30 O2 Del Method Room Air 06/23/25 07:30 06/22/25 06/23/25 06/23/25 22:59 06:59 14:59 Intake Total 340 / 1060 720 / 1780 Output Total 1000 / 1700 Balance -660 / -640 720 / 80 Weight last 48 hrs Weight 215 lb 9.793 oz Weight 211 lb 10.3 oz Weight 210 lb 8.663 oz Physical Exam 2 Narrative: GENERAL: The patient is alert and oriented times three. Not in any acute distress. HEENT: No significant pallor, icterus or lymphadenopathy.Oral cavity: There are no mucous membrane lesions. NECK: Trachea appears to be central. No masses noted. No JVD or thyromegaly appreciated. RESPIRATORY: Chest is symmetrical. No intercostals muscle retraction or any accessory muscle activation. There is no chest wall tenderness. Breath sounds are heard bilaterally. No rales or rhonchi heard. No evidence of any consolidation. BREASTS: Deferred. HEART: The heart sounds are normal. No S3 or S4. No significant murmurs. No pericardial rub ABDOMEN: No vessel pulsations or distention. No tenderness. No organomegaly appreciated. Bowel sounds are normally heard. : Deferred. RECTAL: Deferred. LYMPHATIC: No lymphadenopathy noted in the neck. EXTREMITIES: No edema or cyanosis. No clubbing. MUSCULOSKELETAL: No acute joint deformities or swelling SKIN: There are no significant rashes or ecchymosis NEUROPSYCHIATRIC: The patient is alert and oriented x3. Appears to be in a good mood. No tremors or rigidity noted. Data 06/22/25 03:14 06/23/25 08:57 Other Labs: Laboratory Last Values WBC 11.48 10^3/uL (3.29-11.43) H 06/22/25 03:14 RBC 5.53 10^6/uL (3.85-5.65) 06/22/25 03:14 Hgb 16.20 g/dL (11.27-16.99) 06/22/25 03:14 Hct 49.1 % (37-53) 06/22/25 03:14 MCV 88.8 fl (82-101) 06/22/25 03:14 MCH 29.3 pg (27-33) 06/22/25 03:14 MCHC 33.0 g/dL (30-55) 06/22/25 03:14 RDW 13.2 % (12.1-15.1) 06/22/25 03:14 Plt Count 462 10^3/cmm (157-399) H D 06/22/25 03:14 MPV 10.2 fL (7.4-10.4) 06/22/25 03:14 Neut % (Auto) 68.8 % 06/22/25 03:14 Lymph % (Auto) 18.6 % 06/22/25 03:14 [place] % (Auto) 10.4 % 06/22/25 03:14 Eos % (Auto) 1.1 % 06/22/25 03:14 Baso % (Auto) 0.8 % 06/22/25 03:14 Neut # (Auto) 7.91 10^3/uL (1.8-7.7) H 06/22/25 03:14 Lymph # (Auto) 2.1 10^3/uL (0.8-4.8) 06/22/25 03:14 [place] # (Auto) 1.2 10^3/uL (0.2-0.9) H 06/22/25 03:14 Eos # (Auto) 0.1 10^3/uL (0.0-0.8) 06/22/25 03:14 Baso # (Auto) 0.1 10^3/uL (0.0-0.1) 06/22/25 03:14 Nucleated RBC % (auto) 0 % 06/22/25 03:14 Nucleated RBCs # 0.0 /100WBC 06/22/25 03:14 D-Dimer 1.37 ug/mLFEU (0-0.59) H 06/22/25 03:14 Specimen Type Venous 06/21/25 18:19 Sample Site Na 06/21/25 18:19 Leodan Test N/a 06/21/25 18:19 VBG pH 7.47 (7.32-7.42) H 06/21/25 18:19 VBG pCO2 31.0 mmHg (41-51) L 06/21/25 18:19 VBG pO2 124.0 mmHg (25-40) H 06/21/25 18:19 VBG HCO3 22.6 mmol/L (24-28) L 06/21/25 18:19 VBG Base Excess 0.1 mmol/L (-3.0-3.0) 06/21/25 18:19 VBG Hematocrit 52.8 % (42-52) H 06/21/25 18:19 O2 Delivery Device None 06/21/25 18:19 Electronics Technology Department Chair ID Cak 06/21/25 18:19 Sodium 135 mmol/L (136-145) L 06/22/25 03:14 Potassium 4.0 mmol/L (3.5-5.1) 06/22/25 03:14 Chloride 99 mmol/L (98-107) 06/22/25 03:14 Carbon Dioxide 24 mmol/L (22-29) 06/22/25 03:14 Anion Gap 16.0 (5-19) 06/22/25 03:14 BUN 33 mg/dL (6-20) H 06/22/25 03:14 Creatinine 1.3 mg/dL (0.7-1.2) H 06/22/25 03:14 GFR Calculation 58.2 mL/min (90-130) L 06/22/25 03:14 Glucose 103 mg/dL (65-115) 06/22/25 03:14 Calculated Osmolality 288 mOsm/kg (285-295) 06/22/25 03:14 Calcium 8.7 mg/dL (8.5-10.5) 06/22/25 03:14 Magnesium 2.0 mg/dL (1.7-2.3) 06/22/25 03:14 Total Bilirubin 2.3 mg/dL (0.15-1.2) H 06/21/25 07:25 AST 104 U/L (0-40) H 06/21/25 07:25 ALT 149 U/L (0-41) H 06/21/25 07:25 Alkaline Phosphatase 141 U/L (40-130) H 06/21/25 07:25 C-Reactive Protein 3.5 mg/L (0.0-4.9) 06/21/25 07:25 NT-Pro-B Natriuret Pep 03910 pg/mL (0-125) H 06/21/25 07:25 Total Protein 6.4 g/dL (6.6-8.7) L 06/21/25 07:25 Albumin 3.3 g/dL (3.5-5.2) L 06/21/25 07:25 Globulin 3.1 g/dL (1.3-4.6) 06/21/25 07:25 A&P Assessment and plan 1. Acute on chronic systolic heart failure: This could be multifactorial. Pulmonary embolism, noncompliance with medication, uncontrolled blood pressure etc. are contributing factor's . Currently the blood pressure seems to be getting under control. The heart failure is fairly compensated. 2. Nonischemic congestive cardiomyopathy: The LV ejection fraction was around 25% by echocardiogram in May. Patient did not want to use the LifeVest. He started on Entresto. Importance of compliance to the medication were discussed. He seems to understand the implications. 3. Uncontrolled hypertension: The blood pressure seems to be getting under control. 4. Bilateral pulmonary embolism: Patient is on IV anticoagulation. There is no evidence of any hemodynamic compromise. May continue on the current 5. Right ventricular apical thrombus: Based on the echocardiogram, there is no obvious thrombus. The patient seems to have RV band. If at all there is a thrombus it will be small and organized. 6. Renal dysfunction: The kidney function appears to be stable 7. Presence of internal carotid stent: The stent appears to be patent in the left ICA. He also has vertebral artery disease. Based on the patient's history, these are chronic. 8. History of ischemic stroke: Status post recent thrombolytic agent. Seems to have some residual numbness on his right side Plan: Patient may be continued on the current medications. The dose of the Entresto need to be gradually advanced. Importance of compliance of medication was once again discussed the patient. Follow-up appointment at the [facility] in 2 weeks PDMP PDMP Reviewed: Not Reviewed Attestations 2 Medical Necessity Statement*: Deferred to the primary Coding Level of Care Code 29230 Diagnoses Acute on chronic systolic heart failure I50.23 Nonischemic congestive cardiomyopathy I42.0 Uncontrolled hypertension I10 Bilateral pulmonary embolism I26.99 Right ventricular apical thrombus I51.3 Renal dysfunction N28.9 Presence of internal carotid stent Z95.828 History of ischemic stroke Z86.73
--- NOTE | 2025-06-23 08:21 | PM.DCS ---
Discharge Providers Date of Admission: 06/21/25 09:07 Date of Discharge: June 23, 2025 Attending Provider at Admission: Shan Hess MD Attending Provider at Discharge: Shan Hess MD Diagnoses at Discharge Discharge Diagnosis 1. Bilateral pulmonary embolism: 2. Right ventricular apical thrombus: 3. Acute on chronic systolic heart failure: 4. Nonischemic congestive cardiomyopathy: 5. Uncontrolled hypertension: 6. Renal dysfunction: 7. Presence of internal carotid stent: 8. History of ischemic stroke: Reason for Visit Reason for Visit: SOB Brief History: Patient presented with apparent difficulty breathing. Suspected to have CHF exacerbation, diuresis was started. He was also found to have acute pulmonary embolism, for which he was started on Lovenox. Given finding of left ventricular thrombus, cardiology was consulted, who further advised on continue patient on ongoing anticoagulation. Hospital Course Hospital Course All other concomitant symptoms were treated empirically. The active chronic medical problems were treated with home medications, as adjusted. Overall, patient responded well to treatment, and therefore deemed fit for discharge today. See my discharge orders and discharge instructions for more details. Physical Exam Narrative: General: Awake and alert patient. Resp: No obvious respiratory distress or difficulty breathing. Skin: No obvious rashes or new skin lesions. All other physical findings essentially within normal limits. Discharge Data Studies Completed and Pending Completed Studies During Hospitalization Category Date Time Status CTA chest [CT angio chest PE protcl [id number]] Stat Cat Scan 06/21/25 07:00 Completed XR chest 1V portable [id number] Stat Exams 06/21/25 06:42 Completed CV. echo limited [id number] Urgent Ultrasound 06/22/25 13:08 Completed Pending at discharge Category Date Time Status BMP [Basic Metabolic Panel] Routine Lab 06/23/25 07:52 Ordered Radiology Impressions Chest X-Ray 06/21/25 06:42 IMPRESSION: Right lower lobe infiltrate plus effusion. The findings are suspicious for pneumonia. Chest CTA 06/21/25 07:00 1. Positive for pulmonary artery embolism. 2. Suspicion for right ventricle focal organized thrombus in the apex. 3. Dilated cardiomyopathy. 4. Hazy ground-glass opacities may represent edema. 5. Significant right-sided pleural effusion. Vitals Last Vital Signs Temp 97.8 F 06/23/25 04:00 Pulse 94 06/23/25 08:00 Resp 16 06/23/25 08:00 BP 144/117 06/23/25 04:00 Pulse Ox 97 06/23/25 07:30 O2 Del Method Room Air 06/23/25 07:30 Discharge Plan Discharge Patient Disposition: Home Condition: Stable Prescriptions: New spironolactone 25 mg Tablet 25 mg PO DAILY Qty: 30 2RF sacubitril-valsartan [Entresto] 24-26 mg Tablet 1 tab PO BID Qty: 60 2RF Eliquis DVT-PE Treat 30D Start 5 mg (74 tabs) tablets,dose pack See Rx Instructions .ROUTE .COMPLEX Qty: 74 0RF Rx Instructions: orally per package directions Continued acetaminophen [Tylenol Extra Strength] 500 mg Tablet 500 mg PO QID PRN (Reason: Fever Or Pain) aspirin 81 mg Tablet,Delayed Release (Dr/Ec) 81 mg PO DAILY sertraline 25 mg Tablet 25 mg PO QAM budesonide-formoterol [Symbicort] 160-4.5 mcg/actuation Hfa Aerosol Inhaler 2 puff INHALATION BID atorvastatin 40 mg Tablet 40 mg PO BEDTIME Qty: 90 0RF clopidogrel 75 mg Tablet 75 mg PO DAILY Qty: 21 0RF carvedilol 3.125 mg tablet 3.125 mg PO BID Qty: 180 0RF Rx Instructions: must administer with a meal/food buspirone 7.5 mg tablet 7.5 mg PO BID Qty: 90 0RF Changed furosemide [Lasix] 40 mg tablet 20 mg PO DAILY PRN (Reason: edema) Qty: 30 2RF Rx Instructions: Edema or rapid water weight gain >3lbs in 2 days Discontinued losartan 50 mg tablet 50 mg PO DAILY Qty: 90 0RF Mass Spec OK for DC: Cardiology Discharge Order = DC NOW: Discharge Order (Routine); Ordered 06/23/25 Ordered By: Shan Hess Referrals: Hayley Jiménez MD [Referring, Family Practice] - 4-7 days Referral Note: Spoke with [place] clinic support- clinic will contact you to schedule follow-up appointment. Discharge Diet: Cardiac Discharge Activity: Resume usual activity and Increase activity as tolerated Patient Instructions: Spironolactone (By mouth), Apixaban (By mouth) (Eliquis), Sacubitril/Valsartan (By mouth) (Entresto, Entresto Sprinkle), Pulmonary Embolism (DC), Ischemic Stroke (DC), Hypertension (DC), CHF Stoplight, Opioid Safety, Patient Portal & Chapo Instructions Activity Restrictions/Additional Instructions: Follow-up with your primary care provider within the next 2 to 4 weeks; PCP to continue/adjust dose of anticoagulant, Eliquis, as may be needed. Follow up with a gasket supervisor as directed. Discharge Attestations Time Spent in Discharge Care*: less than 30 min Status at Discharge: Cognitive status at discharge: cognitively intact, Behavioral status at discharge: cooperative, Quality Metrics Clinical Quality Measures [ No reported AMI, CVA or VTE this stay] Coding Level of Care Code Acute Code for Chg Fwd Diagnoses Bilateral pulmonary embolism I26.99 Right ventricular apical thrombus I51.3 Acute on chronic systolic heart failure I50.23 Nonischemic congestive cardiomyopathy I42.0 Uncontrolled hypertension I10 Renal dysfunction N28.9 Presence of internal carotid stent Z95.828 History of ischemic stroke Z86.73
[2025-06-23 09:48] LABS: Anion Gap 17.0 (5-19); Blood Urea Nitrogen 28 mg/dL (6-20); Calcium 8.0 mg/dL (8.5-10.5); Carbon Dioxide 21 mmol/L (22-29); Chloride 105 mmol/L (98-107); Glucose 142 mg/dL (65-115); Osmolality Calculated 296 mOsm/kg (285-295); Potassium 4.0 mmol/L (3.5-5.1); Sodium 139 mmol/L (136-145)
--- NOTE | 2025-06-23 10:49 | PC.NURSE ---
Delay for discharge related to patient on phone with S.S> administration, unable to call for ride until this call completed
--- NOTE | 2025-06-23 11:57 | PC.NURSE ---
Discharge delay related to ride home. pt's ride home has a court appt in [place] at 1330. SHe can come by after to pick him up per pt. Will feed pt lunch then discharge to waiting room.
--- NOTE | 2025-06-23 12:00 | PC.NURSE ---
Pt arrives back to [facility] from [facility] lab[facility]. Left groun soft, no hematoma or bleeding noted. Dressing C, D, I. Pt requested hos BiPap to nap with for his 4 hours of bedrest. NS infusing at 75ml/hr into left forearm.
--- NOTE | 2025-06-23 13:34 | PC.NURSE ---
Discahrge instructions reviewed and discussed. Pt impatient and frustrated. After multiple explanations and reiteration of Dr Elizalde's instructions, pt still expressing he does not know what to do about his shortness of breath. Conserving energy and pacing work and rest discussed and not recieved well. Pt stated he was going to read the carenotes at home. Pt discharge.
== END 2025-06-23 13:33 | disposition home or self-care (01) | DRG 175 ==
LOC: ER 09:21 → CSU 09:57
PROVIDERS: Clinical Nurse Specialist Acute Care; Internal Medicine Cardiovascular Disease; Admitting Provider Family Medicine; Emergency Provider Emergency Medicine; Visit Provider Family Medicine
DX: I26.94 Multiple subsegmental thrombotic pulmonary emboli without acute cor pulmonale (principal); I50.23 Acute on chronic systolic (congestive) heart failure; J18.9 Pneumonia, unspecified organism; I13.0 Hypertensive heart and chronic kidney disease with heart failure and stage 1 through stage 4 chronic kidney disease, or unspecified chronic kidney disease; I42.8 Other cardiomyopathies; I51.3 Intracardiac thrombosis, not elsewhere classified; N18.9 Chronic kidney disease, unspecified; F17.290 Nicotine dependence, other tobacco product, uncomplicated; I69.398 Other sequelae of cerebral infarction; R20.0 Anesthesia of skin; R91.1 Solitary pulmonary nodule; F41.9 Anxiety disorder, unspecified; I45.10 Unspecified right bundle-branch block; I25.2 Old myocardial infarction; Z79.82 Long term (current) use of aspirin; Z79.02 Long term (current) use of antithrombotics/antiplatelets; Z95.820 Peripheral vascular angioplasty status with implants and grafts
CPT/HCPCS: 36415; 71045; 71275; 80048; 80053; 82803; 83735; 83880; 85025; 85378; 86140; 93005; 93308; 94640; 96372; 96374; 97165; 99285; J1650; J1938; J2470; J7613; J7626; J9999

== ENCOUNTER → 2025-07-06 14:59 | Outpatient (BNVA) | payer OTHER, SELFPAY | PROVIDERS: PCP Family Medicine; Visit Provider Nurse Practitioner Family | DX: I26.99 Other pulmonary embolism without acute cor pulmonale (principal); I42.8 Other cardiomyopathies; I13.0 Hypertensive heart and chronic kidney disease with heart failure and stage 1 through stage 4 chronic kidney disease, or unspecified chronic kidney disease; I50.20 Unspecified systolic (congestive) heart failure; N18.9 Chronic kidney disease, unspecified; R79.89 Other specified abnormal findings of blood chemistry; N52.9 Male erectile dysfunction, unspecified; F17.210 Nicotine dependence, cigarettes, uncomplicated; Z79.01 Long term (current) use of anticoagulants; Z79.82 Long term (current) use of aspirin | CPT/HCPCS: 99214 ==

== ENCOUNTER → 2025-07-07 13:49 | Outpatient (BNVA) | payer OTHER, SELFPAY | PROVIDERS: PCP Family Medicine; Referring Provider Internal Medicine; Visit Provider Specialist | DX: Z86.73 Personal history of transient ischemic attack (TIA), and cerebral infarction without residual deficits (principal); I42.8 Other cardiomyopathies; I51.3 Intracardiac thrombosis, not elsewhere classified; Z95.828 Presence of other vascular implants and grafts; I65.03 Occlusion and stenosis of bilateral vertebral arteries | CPT/HCPCS: 99205 ==

== ENCOUNTER 2025-07-15 08:37 | Outpatient (CLI) | payer OTHER, SELFPAY ==
--- NOTE | 2025-07-15 09:15 | MR_ITS ---
WS: [id number] MRI HEAD WITHOUT CONTRAST TECHNIQUE: Sagittal T1, T2 axial, T2 axial FLAIR, axial and coronal T1 images, axial susceptibility weighted imaging, axial diffusion weighted images, and coronal T2 images were obtained. CLINICAL INFORMATION: Z86.73 - Personal history of transient ischemic attack (T... FINDINGS: Partially restricted diffusion in the LEFT centrum semiovale compatible with acute to subacute ischemia. Small focus of partially restricted diffusion in the LEFT frontal white matter. No other focus of restricted diffusion. Tiny chronic lacunar infarcts in the cerebellum bilaterally. Cavum septum pellucidum and vergae. Normal basilar and ICA flow voids. Coil embolization distal LEFT vertebral artery. Normal RIGHT vertebral artery flow void. Mild mucosal thickening paranasal sinuses. Normal posterior nasopharynx. Mastoid air cells are well aerated. Temporal lobes and hippocampal formations are normal in appearance. Moderate patchy supratentorial white matter changes likely due to small vessel disease given clinical history and vascular disease. Some lesions are in a pericallosal distribution which can be seen with demyelinating disease if clinical history. No significant parenchymal volume loss. Subacute to chronic gliosis in the LEFT inferior frontal lobe presumably due to prior ischemia. Small amount of encephalomalacia and gliosis in the RIGHT frontal lobe near the vertex MR/MR head wo con* [id number] IMPRESSION: 1. Small amount of partially restricted diffusion in the LEFT centrum semioval e and LEFT frontal white matter consistent with acute to subacute ischemia. 2. Gliosis in the LEFT inferior frontal cortex likely due to subacute to early chronic ischemia. 3. Moderate patchy supratentorial white matter changes compatible with small v essel disease given history and vascular disease. Some of these are pericallosa l and can be seen with demyelinating disease in the appropriate clinical settin g. 4. No significant parenchymal volume loss. 5. Tiny chronic lacunar infarcts in the cerebellum. 6. Mild inflammatory changes in the paranasal sinuses. 7. No hemosiderin.
--- NOTE | 2025-07-15 10:00 | MR_ITS ---
WS: [id number] MRA HEAD TECHNIQUE: Axial 3-D TOF images obtained with axial images and axial, sagittal, and coronal 2-D reformatted images. CLINICAL INFORMATION: Z86.73 - Personal history of transient ischemic attack (T... FINDINGS: Coil embolization distal LEFT vertebral artery. Distal RIGHT vertebral artery is patent. Basilar artery is patent. Normal vascularity to the DEDICATED OWNER OPERATOR territory bilaterally. Both ICAs are patent at the skull base. Normal vascularity to the HANK and MCA territories bilaterally. No evidence of proximal flow-limiting stenosis. MR/MR angio head wo con [id number] IMPRESSION: 1. Coil embolization distal LEFT vertebral artery. 2. Otherwise unremarkable intracranial MRA.
== END 2025-07-15 08:38 | disposition home or self-care (01) ==
LOC: RAD 08:38
PROVIDERS: PCP Family Medicine; Visit Provider Specialist
DX: Z86.73 Personal history of transient ischemic attack (TIA), and cerebral infarction without residual deficits (principal); G44.009 Cluster headache syndrome, unspecified, not intractable; I63.9 Cerebral infarction, unspecified; I63.212 Cerebral infarction due to unspecified occlusion or stenosis of left vertebral artery; Z95.828 Presence of other vascular implants and grafts; J34.89 Other specified disorders of nose and nasal sinuses
CPT/HCPCS: 70544; 70551

== ENCOUNTER 2025-07-20 10:04 | Outpatient (CLI) | payer OTHER, SELFPAY | END 2025-07-20 10:05 | disposition home or self-care (01) | LOC: RAD 07-21 09:06 | PROVIDERS: PCP Family Medicine; Visit Provider Nurse Practitioner Family | DX: I42.8 Other cardiomyopathies (principal); R20.2 Paresthesia of skin; Z86.711 Personal history of pulmonary embolism; N52.9 Male erectile dysfunction, unspecified | CPT/HCPCS: 99214 ==